=== PATIENT | male | born 1930 | race Caucasian/White ===

== ENCOUNTER 2016-05-01 11:54 | Inpatient (IN) | payer MEDICARE, BC ==
[2016-05-01] MEDS ORDERED: Morphine INJ* 10 MG/ML 1 ML CARPUJECT IV ONE ×2 (12:17→15:02)
--- NOTE | 2016-05-01 13:26 | RAD ---
Indication: Low back pain, neurostimulator placement. 3 views of lumbar spine demonstrates degenerative disc disease at L2-L3, L3-L4. Neural stimulator leads are in place. IMPRESSION: Degenerative disc disease at L2-L3 and L3-L4.
--- NOTE | 2016-05-01 13:26 | RAD ---
Indication: Right hip pain after fall. 2 views of the right hip including an AP view of the pelvis demonstrates no fracture. Arterial calcifications are noted. IMPRESSION: No fracture of the right hip is noted.
--- NOTE | 2016-05-01 13:27 | RAD ---
Indication: Right knee pain after injury. 2 views of the right knee demonstrates no definite fracture although joint space narrowing in the medial and lateral compartment as well as the patellofemoral joint is noted. No joint effusion is noted. IMPRESSION: Degenerative changes of the medial, lateral and patellofemoral compartments without evidence of fracture or effusion.
--- NOTE | 2016-05-01 13:28 | RAD ---
Indication: Right ankle pain after injury. 3 views of the right ankle demonstrates degenerative changes of the tibiotalar joint. No fracture is identified. IMPRESSION: Degenerative changes of the tibiotalar joint without definite fracture.
[2016-05-01 14:41] LABS: Hematocrit 29 % (42-52); Hemoglobin 9.7 g/dl (14.0-18.0); Mean Corpuscular HGB Conc 33 g/dl (31-36); Mean Corpuscular Hemoglobin 30 pg (27-31); Mean Corpuscular Volume 91 fL (80-94); Mean Platelet Volume 9 um3 (7.4-10.4); Red Blood Count 3.22 10^6/ul (4.0-5.4); Red Cell Distribution Width 13 % (10.5-15)
[2016-05-01 14:56] LABS: Albumin 2.6 g/dL (3.2-5.2); BUN/Creatinine Ratio 24.5 (8-20); Calcium 8.3 mg/dL (8.6-10.3); EGFR African American 34.3 (>60); EGFR Non-African American 26.7 (>60); Globulin 3.2 g/dL (2-4); Potassium 4.4 mmol/L (3.5-5.0); Total Bilirubin 0.5 mg/dL (0.2-1.0); Total Protein 5.8 g/dL (6.4-8.9)
--- NOTE | 2016-05-01 14:58 | RAD ---
Indication: Right leg pain. The T10 vertebra demonstrates areas of lysis and sclerosis. Compression fracture of T10 cannot be excluded as this is incompletely imaged. The remainder of the vertebral bodies appear normal in height. No compression fracture is noted. Schmorl's node is noted at the superior endplate of T11, T12 and inferior endplate of L1, L2 and superior endplate of L3. 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 There is laminectomy at L4 noted. Broad-based protrusion is noted at L3-L4. Moderate degree of spinal stenosis is noted. At L2-L3 broad-based protrusion is noted. Facet and ligamentous hypertrophy is noted. No central or foraminal stenosis is noted. At L1-L2 broad-based protrusion flattens the thecal sac. Moderate degree of facet arthropathy is noted. At T12-L1 and T11-T12 no focal protrusion is identified. IMPRESSION: THE T10 VERTEBRA IS INCOMPLETELY VISUALIZED WITH AREAS OF LYSIS. FURTHER EVALUATION WITH A CT OF THE THORACIC SPINE MAY BE HELPFUL. BILATERAL PLEURAL EFFUSION WITH BIBASILAR ATELECTASIS IS NOTED. LAMINECTOMY AT L4. DEGENERATIVE DISC DISEASE AT L3-L4 WITH BROAD-BASED PROTRUSION AND MODERATE DEGREE OF SPINAL STENOSIS IS NOTED. AT L2-L3 BROAD-BASED PROTRUSION AND FACET AND LIGAMENTOUS HYPERTROPHY IS NOTED.
[2016-05-01] MEDS ORDERED: Morphine INJ* 2 MG/ML 1 ML CARPUJECT IV PRN (16:10)
[2016-05-01 16:48] LABS: C Reactive Protein 217.37 mg/L (< 5.00)
[2016-05-01] MEDS ORDERED: oxyCODONE/Acetamin 5/325 MG* TAB PO PRN (16:50)
[2016-05-01] MEDS ORDERED: Lidocaine PATCH 5%* 1 PATCH TRANSDERM SCH (17:00)
[2016-05-01] MEDS ORDERED: Polyethylene Glycol 3350* 17 GM PACKET PO PRN (17:05)
--- NOTE | 2016-05-01 18:50 | HP ---
HISTORY AND PHYSICAL:* ADDENDUM: DATE OF ADMISSION: 05/01/16 Quintin Joy is an 85-year-old male with a history of chronic back pain for which dorsal column stimulator was implanted within the past several days. Postoperatively, the patient had an episode of fall and knee contusion. He had been complaining of increased generalized weakness. He presented to the ED for evaluation. So far, he appears to be slightly dehydrated according to his BUN and creatinine. Unfortunately, unless confirmed otherwise, after the dorsal column stimulator placement, the patient most likely will not be able to have an MRI of his back. PT and OT evaluation is going to be utilized during his hospital stay. It is possible that the patient will require rehab at discharge. For further details of the patient's presentation and plan, please see history and physical dictated by Laly Arana NP, on 05/01/16 with which I agree. [id number]/CPS #: [id number] MTDD
--- NOTE | 2016-05-01 19:21 | RAD ---
Indication: Back pain, T10 abnormality CT of the thoracic spine was obtained in the axial plane. Sagittal and coronal reconstructed images were obtained. The vertebral bodies appear normal in height. Neural stimulator leads are present at the level of T7 in the epidural space in the dorsal aspect of the spinal canal. There is mixed sclerotic and lytic lesion at the T10 vertebra. Otherwise the T10 vertebra is preserved in height with no evidence of compression fracture. This is of unclear etiology. No compression is noted. I cannot totally exclude metastatic disease although other etiologies are not totally excluded. The remainder of the vertebra appear normal in height and alignment. No focal protrusion is identified. The lung arroyo demonstrates bilateral pleural effusions. Bibasilar atelectasis is noted. IMPRESSION: Mixed sclerotic and lytic lesion at T10. No compression noted. No evidence of retropulsed fragment is noted. I cannot totally exclude metastatic disease at this level. Neurostimulator leads terminate at the T7 level in the epidural space. Bilateral pleural effusions are noted.
[2016-05-01] MEDS: Magnesium Hydroxide LIQ* 30 ML UDC PO PRN (19:58)
--- NOTE | 2016-05-01 20:03 | ED ---
Darshan Paniagua Billy, scribed for Guilherme Miramontes MD on 05/01/16 at 1333 . Lower Extremity - HPI Summary HPI Summary: Patient is an 85 year-old male coming to [facility] presenting with constant lumbar, right hip, and RLE pain. He states that his pain has been consistent since his spinal cord stimulator was implanted [address] Schwartz, to treat chronic lower back pain. He has "slid" out of his bed multiple times since then. He and family state that while he had been able to walk with a cane in the past, he has been unable to do so today. He is constipated but denies any urinary incontinence. Denies saddle numbness or tingling. Denies any fever, cough, congestion, or chills. Patient states that he took Percoset today at 1100 without any improvement. - History of Current Complaint Chief Complaint: EDHipPelvisInjury Stated Complaint: HIP PAIN Time Seen by Provider: 05/01/16 12:10 Hx Obtained From: Patient Onset of Pain: Days Severity Initially: Moderate Severity Currently: Moderate Timing: Constant Location: Is Discrete @ - Lumbar, right hip, RLE Associated Signs And Symptoms: Positive: Negative Aggravating Factor(s): Standing, Ambulation Alleviating Factor(s): Rest Able to Bear Weight: No - Allergies/Home Medications Allergies/Adverse Reactions: Allergies Allergy/AdvReac Type Severity Reaction Status Date / Time Sulfa Drugs Allergy Rash Verified 07/02/15 19:08 Home Medications: Home Medications Clonazepam [Clonazepam] 0.5 mg PO DAILY 05/01/16 [History Confirmed 05/01/16] Levothyroxine TAB* [Synthroid 100 MCG TAB*] 100 mcg PO DAILY 05/01/16 [History Confirmed 05/01/16] Pramipexole TAB* [Mirapex TAB*] 0.25 mg PO BEDTIME 05/01/16 [History Confirmed 05/01/16] Simvastatin [Simvastatin] 10 mg PO DAILY 05/01/16 [History Confirmed 05/01/16] oxyCODONE/Acetamin 5/325 MG* [Percocet 5/325 TAB*] 1 tab PO Q4H PRN 05/01/16 [ History Confirmed 05/01/16] PMH/Surg Hx/FS Hx/Imm Hx Endocrine/Hematology History: Reports: Hx Diabetes - DIET CONTROLLED Denies: Hx Anticoagulant Therapy, Hx Thyroid Disease Cardiovascular History: Reports: Hx Hypertension Respiratory History: Denies: Hx Asthma, Hx Chronic Obstructive Pulmonary Disease (COPD), Hx Lung Cancer GI History: Denies: Hx Gall Bladder Disease, Hx Gastrointestinal Bleed, Hx Ulcer, Hx Urosepsis History: Denies: Hx Kidney Stones, Hx Renal Disease - 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 LEFT NEPHRECTOMY 1951 Infectious Disease History: Reports: Hx Shingles - Got into eye Denies: Hx Clostridium Difficile, Hx Hepatitis, Hx Human Immunodeficiency Virus (HIV), Hx of Known/Suspected MRSA, History Other Infectious Disease, Traveled Outside the [place] in Last 30 Days - Family History Known Family History: Positive: Hypertension, Diabetes - Social History Alcohol Use: Daily Alcohol Amount: 2 BEERS/DAY Substance Use Type: Reports: None Smoking Status (MU): Former Smoker Review of Systems Negative: Fever, Chills Negative: Cough Positive: Other - lower back, right hip, RLE pain Negative: Paresthesia, Numbness All Other Systems Reviewed And Are Negative: Yes Physical Exam Triage Information Reviewed: Yes Vital Signs On Initial Exam: Initial Vitals Pulse Resp BP Pulse Ox 77 18 134/98 95 05/01/16 12:27 05/01/16 12:27 05/01/16 12:27 05/01/16 12:27 Vital Signs Reviewed: Yes Appearance: Positive: Well-Appearing, No Pain Distress - Comfortable, pleasant, and alert. Skin: Positive: Other - Lower back surgical dressing is still in place; there is no redness, no purulent drainage around the dressing, no induration, or streaking. Eyes: Positive: EOMI, MIGUEL ENT: Positive: Other - Moist mucousal membranes. Neck: Positive: Supple, Nontender, No Lymphadenopathy Respiratory/Lung Sounds: Positive: Clear to Auscultation, Breath Sounds Present. Negative: Rales, Wheezes Cardiovascular: Positive: RRR, Other - No gallops., S1, S2. Negative: Murmur, Rub Abdomen Description: Positive: Nontender, Soft. Negative: Distended Musculoskeletal: Positive: Other - Diffuse tenderness of right hip, right knee, no obvious effusion. Right knee is not red or hot. Diffuse tenderness of right ankle. Diffuse lower back tenderness. Calves are soft and nontender. Any type of movement of the right foot or ankle causes pain to the point where it is impossible to compare strength right vs. left. Neurological: Positive: Alert, Oriented to Person Place, Time, Other - Sensation to pinprick intact bilaterally. Psychiatric: Positive: Affect/Mood Appropriate - Logical and coherent. AVPU Assessment: Alert Diagnostics - Vital Signs Vital Signs Pulse Resp BP Pulse Ox 05/01/16 12:27 77 18 134/98 95 - Laboratory Lab Results: Lab Results 05/01/16 05/01/16 05/01/16 Range/Units 14:30 14:30 14:30 WBC 11.0 H (3.5-10.8) 10^3/ul RBC 3.22 L (4.0-5.4) 10^6/ul Hgb 9.7 L (14.0-18.0) g/dl Hct 29 L (42-52) % MCV 91 (80-94) fL MCH 30 (27-31) pg MCHC 33 (31-36) g/dl RDW 13 (10.5-15) % Plt Count 186 (150-450) 10^3/ul MPV 9 (7.4-10.4) um3 Neut % (Auto) 70.0 (38-83) % Lymph % (Auto) 17.4 L (25-47) % Sebastian % (Auto) 11.0 H (1-9) % Eos % (Auto) 1.2 (0-6) % Baso % (Auto) 0.4 (0-2) % Absolute Neuts (auto) 7.7 (1.5-7.7) 10^3/ul Absolute Lymphs (auto) 1.9 (1.0-4.8) 10^3/ul Absolute Monos (auto) 1.2 H (0-0.8) 10^3/ul Absolute Eos (auto) 0.1 (0-0.6) 10^3/ul Absolute Basos (auto) 0 (0-0.2) 10^3/ul Absolute Nucleated RBC 0 10^3/ul Nucleated RBC % 0 Sodium 136 (133-145) mmol/L Potassium 4.4 (3.5-5.0) mmol/L Chloride 108 (101-111) mmol/L Carbon Dioxide 16 L (22-32) mmol/L Anion Gap 12 H (2-11) mmol/L BUN 57 H (6-24) mg/dL Creatinine 2.33 H (0.67-1.17) mg/dL Est GFR ( Amer) 34.3 (>60) Est GFR (Non-Af Amer) 26.7 (>60) BUN/Creatinine Ratio 24.5 H (8-20) Glucose 88 (70-100) mg/dL Lactic Acid 0.8 (0.5-2.0) mmol/L Calcium 8.3 L (8.6-10.3) mg/dL Total Bilirubin 0.50 (0.2-1.0) mg/dL AST 17 (13-39) U/L ALT 8 (7-52) U/L Alkaline Phosphatase 140 H (34-104) U/L Total Creatine Kinase 87 (10-223) U/L C-Reactive Protein 217.37 H (< 5.00) mg/L Total Protein 5.8 L (6.4-8.9) g/dL Albumin 2.6 L (3.2-5.2) g/dL Globulin 3.2 (2-4) g/dL Albumin/Globulin Ratio 0.8 L (1-3) Result Diagrams: 05/01/16 14:30 05/01/16 14:30 Lab Statement: Any lab studies that have been ordered have been reviewed, and results considered in the medical decision making process. - Radiology Right Ankle Radiology Interpretation Completed By: Radiologist - Degenerative changes of the tibiotalar joint without definite fracture. Lumbar Spine Radiology Interpretation Completed By: Radiologist - Degenerative disc disease at L2-L3 and L3-L4. Right Knee Radiology Interpretation Completed By: Radiologist Right Hip Radiology Interpretation Completed By: Radiologist - No fracture of the right hip is noted. - CT lumbar CT Interpretation Completed By: Radiologist - THE T10 VERTEBRA IS INCOMPLETELY VISUALIZED WITH AREAS OF LYSIS. FURTHER EVALUATION WITH A CT OF THE THORACIC SPINE MAY BE HELPFUL. BILATERAL PLEURAL EFFUSION WITH BIBASILAR ATELECTASIS IS NOTED. LAMINECTOMY AT L4. DEGENERATIVE DISC DISEASE AT L3-L4 WITH BROAD-BASED PROTRUSION AND MODERATE DEGREE OF SPINAL STENOSIS IS NOTED. AT L2-L3 BROAD- BASED PROTRUSION AND FACET AND LIGAMENTOUS HYPERTROPHY IS NOTED. Re-Evaluation - Re-Evaluation First Eval Re-Evaluation Time: 13:44 Lower Extremity Course/Dx - Course Assessment/Plan: According to the patient, before the spinal stimulator, he was walking with a cane and now is having severe pain down the entire right side from the hip to the ankle. He has no symptoms concerning with cord compression and interestingly, he has got obvious right hip, knee, and ankle tenderness which is difficult to explain in relation to the spinal stimulator. No fractures were seen. We obtained bloodwork. MRI is not an option. CT scan, for now, to check as best we can for abscess, hematoma, stimulator malplacement. Dr. Schwartz states if we do conclude that the spinal stimulator is worsening his condition, he can remove it. - Diagnoses Differential Diagnosis/HQI/PQRI: Positive: Arthritis, Bursitis, Cellulitis, Contusion, Dislocation, DVT, Fracture (Closed), Infection, Osteomyelitis, Septic Arthritis, Sprain, Strain, Tendonitis, Tenosynovitis Provider Diagnoses: Leg pain, right, Back pain, Falls frequently, Weakened patient - Physician Notifications Discussed Care of Patient With: Dr. Richards (hospitalist) @ 2033: accepts admission. Dr. Schwartz @ 2816: he is not convinced that the surgery has necessarily played a role in his symptoms; he states that we cannot obtain an MRI at this point. We will order a CT of the lumbar spine and check for any obvious problems as best we can. Discharge - Discharge Plan Condition: Stable Disposition: ADMITTED TO [facility] documentation as recorded by the Darshan mccoy Billy accurately reflects the service I personally performed and the decisions made by me, Guilherme Miramontes MD.
[2016-05-01] MEDS ORDERED: Vancomycin(*) 1,250 MG in NS 0.9% 250 ML* 250 ML IVPB ONE (21:00)
[2016-05-01] MEDS ORDERED: Atorvastatin* 10 MG TAB PO SCH (21:00)
[2016-05-01] MEDS ORDERED: Pramipexole TAB* 0.125 MG PO SCH (21:00)
[2016-05-01] MEDS ORDERED: cefTRIAXone VIAL(*) 1,000 MG in NS 0.9% 50 ML* 50 ML IVPB SCH (21:30)
[2016-05-01] MEDS: Morphine INJ* 2 MG/ML 1 ML CARPUJECT IV PRN (21:32)
[2016-05-01] MEDS: Docusate CAP* 100 MG PO SCH (21:53)
[2016-05-01] MEDS: Heparin VIAL(*) 5000 UNITS/ML VIAL (FIVE THOUSAND) SUBCUT SCH (21:54)
[2016-05-01 22:28] LABS: Urine Bacteria Absent (Absent); Urine Bilirubin Negative (Negative); Urine Glucose 1+(50 mg/dL) (Negative); Urine Nitrite Negative (Negative)
[2016-05-01] MEDS ORDERED: Vancomycin per Pharmacy* NOTE FOLLOW UP PRN (22:38)
[2016-05-01] MEDS: oxyCODONE/Acetamin 5/325 MG* TAB PO PRN (22:55)
--- NOTE | 2016-05-01 23:32 | HP ---
ATTENDING ADDENDUM NOW INCLUDED ON THIS REPORT HISTORY AND PHYSICAL: DATE OF ADMISSION: 05/01/16 PRIMARY CARE PROVIDER: Jaquan Dallas MD ATTENDING PHYSICIAN: Nereida Jackson MD *(report dictated by Belkys Hollingsworth NP) CHIEF COMPLAINT: Right hip, knee, and ankle pain after falling and inability to ambulate. HISTORY OF PRESENT ILLNESS: Mr. Joy is an 85-year-old male with past medical history significant for hypertension, arthritis, and postlaminectomy syndrome who presents to the emergency room with complaints of frequent falling and inability to ambulate after having a dorsal column stimulator implanted on 04/26/16. According to the patient's daughter, he had his procedure done on Tuesday and was able to ambulate and walk into the house and then starting on Tuesday, he had a fall and he again had a fall on . The patient continued, began complaining of right hip, knee, and ankle pain. According to the patient at baseline, he has arthritis in his right knee and often had pain down his right leg due to his chronic back problem. The patient denies any fever, chills, chest pain, shortness of breath, nausea, or vomiting. The patient denies any urinary symptoms. The patient does report constipation and took a dose of milk of magnesia last evening. The patient initially was taking Keno for his pain and that was not helping, his primary care prescribed him Percocet. The patient's daughter reports that she turned off the dorsal column stimulator earlier today prior to the arrival to the emergency room. Based off of concern for the patient's frequent falls and inability to ambulate after his surgery, he presented to the emergency room for further evaluation of his symptoms. While in the emergency room, the patient received morphine for his pain and also underwent multiple images including hip and pelvis x-ray showing no fractures. Right knee x-ray showing degenerative changes in the mediolateral and patellofemoral components without evidence of fracture or effusion. He also had a lumbar spine x-ray showing degenerative disk disease at L2-L3 and L3- L4. The patient had right ankle x-ray showing degenerative changes of the tibiotalar joint without definitive fracture. The patient also underwent a lumbar spine CT scan showing the T10 vertebra was incompletely visualized with areas of lysis. Further evaluation was recommended of the CT of the thoracic spine. The patient was also noted to have bilateral pleural effusions with bibasilar atelectasis. The patient noted to have laminectomy at L4 with degenerative disk disease at L3-L4 with broad- based protrusion and moderate degree of spinal stenosis noted. At L2-3, broad- based protrusion and facet and ligamentous hypertrophy is noted. The patient's inability to ambulate in pain, hospitalist medicine was asked to evaluate the patient for admission. PAST MEDICAL HISTORY: 1. Hypertension. 2. Arthritis. 3. Postlaminectomy syndrome. PAST SURGICAL HISTORY: 1. Status post left nephrectomy. 2. Status post laminectomy. 3. Status post appendectomy. HOME MEDICATIONS: Include: 1. Lisinopril 40 mg oral daily. 2. Nifedipine XL 30 mg oral daily. 3. Percocet 5/325 mg 1 tablet oral every 4 hours as needed for pain. 4. Levothyroxine 100 mcg oral daily. 5. Clonazepam 0.5 mg oral daily. 6. Simvastatin 10 mg oral daily. 7. Mirapex 0.25 mg oral daily at bedtime. ALLERGIES: SULFA. FAMILY HISTORY: The patient's mother passed at age 85 from myocardial infarction. The patient has an uncle with diabetes mellitus. The patient's father passed of an unknown cancer. SOCIAL HISTORY: The patient is a former smoker. He quit smoking approximately 7 years ago. The patient has approximately 70-year smoking history. The patient occasionally drinks alcoholic beverages. He denies recreational drug use. 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 The patient's daughter, Briseida Butler, will be his surrogate decision maker in the event he is unable to make decisions for himself. REVIEW OF SYSTEMS: I performed a 14-point review of systems. All the pertinent positives and negatives are mentioned in the history of present illness. The remaining review of systems are negative. PHYSICAL EXAMINATION GENERAL APPEARANCE: The patient is alert, pleasant, appears to be uncomfortable. VITAL SIGNS: Temperature 98.2, heart rate 80, respiratory rate 18, O2 sat 100% on room air, and blood pressure 143/59. HEENT: Normocephalic, atraumatic. Pupils are equal and reactive to light. Extraocular movements are intact. NECK: Supple. There is no lymphadenopathy noted. RESPIRATORY: There is no accessory muscle use and the lungs are clear to auscultation bilateral. CARDIOVASCULAR: Regular rate and rhythm. S1 and S2 present. There is a grade 2/6 systolic murmur heard best at the upper right sternal border. There are no rubs, or gallops heard. ABDOMEN: Soft, nontender, and nondistended. There are hypoactive bowel sounds present x4. EXTREMITIES: The right knee is slightly swollen with tenderness to palpation on both the medial and lateral aspects. There is no erythema or warmth noted. There is no lower extremity edema. DP and PT pulses are 2+ and symmetric. MUSCULOSKELETAL: There is no clubbing or cyanosis noted. The patient is able to move bilateral lower extremities with a lot of coaxing, but does have some difficulty. He is able to dorsiflex and is able to slightly plantar flex bilateral. The patient has good strength in his upper extremities. NEUROLOGICAL: The patient is alert and oriented x4. Cranial nerves II through XII are grossly intact. PSYCHOLOGICAL: The patient is calm and cooperative. SKIN: The patient has a midline back incision and an incision to his lower back on the right side with dressings that are clean, dry, and intact. There is no sign of erythema around his dressing sites from his incisions from his dorsal column stimulator placement. DIAGNOSTIC STUDIES/LABORATORY DATA: Sodium 136, potassium 4.4, chloride 108, CO2 of 16, BUN 57, creatinine 2.33, and glucose 88. White blood cell count 11.0 , hemoglobin 9.7, hematocrit 29, and platelet count 186. Right hip and pelvis x-ray from today. Radiologist's Impression: No fracture of the right hip is noted. Right knee x-ray from today. Radiologist's Impression: Degenerative changes of the medial, lateral, and patellofemoral components, without evidence of fracture or effusion. Lumbar spine x-ray from today. Radiologist's Impression: Degenerative disk disease at L2-3 and L3-4. Right ankle x-ray from today. Radiologist's Impression: Degenerative changes of the tibiotalar joint without definite fracture. Lumbar spine CT from today. Radiologist's Impression: The T10 vertebra is incompletely visualized with areas of lysis. Further evaluation with the CT of the thoracic spine maybe helpful. Bilateral pleural effusions with bibasilar atelectasis is noted. Laminectomy at L4. Degenerative disk disease at L3-4 with broad-based protrusion and moderate degree of spinal stenosis is noted. At L2-3, broad-based protrusion and facets and ligamentous hypertrophy is noted. IMPRESSION: Mr. Joy is an 85-year-old male with past medical history significant for hypertension, arthritis, and postlaminectomy syndrome who presents to the emergency room with right lower extremity pain, low back pain, and inability to ambulate after having a dorsal column stimulator inserted. He will be admitted as an inpatient for intractable pain and frequent falls. ASSESSMENT: 1. Right lower extremity pain and frequent falls: The patient is status post dorsal column stimulator implantation on 04/26/16. I did touch base with Dr. Connor Schwartz, who performed his procedure. He states that the patient's spinal stimulator is not MRI compatible. As far as his back, if the patient needed extremities or a brain MRI that would be possible. Dr. Schwartz feels that the patient's spinal stimulator was placed at L6 and this should not be affecting his lower extremities. The patient will be seen in consultation by physical therapy and occupational therapy. We will add on C-reactive protein and urine. We will also order lidocaine patches for the patient's knee. He will be given pain medication. He has been encouraged to use heat or ice either help with his knee pain. We will check urinalysis and blood cultures. The patient may need short- term subacute rehab if he is slow to progress with his ability to be able to ambulate and care for himself. 2. Chronic kidney disease: The patient's creatinine appears to be slightly above his baseline. He looks to be slightly on the dehydrated side. We will give him some gentle IV hydration overnight and recheck his labs in the morning. 3. Hypertension: The patient will be continued on his home lisinopril and nifedipine. 4. Hypothyroidism. The patient had a TSH on April 05.99. He will be continued on his home levothyroxine dose. 5. Constipation: The patient will be started on a bowel regime. 6. Fluids, electrolytes, and nutrition: The patient will be on a regular diet. 7. Code status: Full code. 8. DVT prophylaxis: The patient is at high risk and will have subcu heparin. 9. Disposition: Inpatient. TIME SPENT: Time for this admission was 60 minutes and 35 minutes was spent face- to-face with the patient and daughter, discussing medications, past medical history, and the events leading up to his arrival today and performing a physical examination. The case has been reviewed with the attending, Dr. Jackson, who agrees with the plan of care. Reviewed by BELKYS OHLLINGSWORTH, PROGRAMMING EQUIPMENT OPERATOR-Fede 05/05/16 1503 ADDENDUM: DATE OF ADMISSION: 05/01/16 Quintin Joy is an 85-year-old male with a history of chronic back pain for which dorsal column stimulator was implanted within the past several days. Postoperatively, the patient had an episode of fall and knee contusion. He had been complaining of increased generalized weakness. He presented to the ED for evaluation. So far, he appears to be slightly dehydrated according to his BUN and creatinine. Unfortunately, unless confirmed otherwise, after the dorsal column stimulator placement, the patient most likely will not be able to have an MRI of his back. PT and OT evaluation is going to be utilized during his hospital stay. It is possible that the patient will require rehab at discharge. For further details of the patient's presentation and plan, please see history and physical dictated by Belkys Arana NP, on 05/01/16 with which I agree. NEREIDA JACKSON MD CC: Dr. Dallas* [id number]/CPS #: [id number]/CPS #: [id number] MTDAdry
[2016-05-02] MEDS: Morphine INJ* 2 MG/ML 1 ML CARPUJECT IV PRN ×4 (00:29→12:00)
[2016-05-02] MEDS ORDERED: Lidocaine Patch REMOVE* 1 NOTE MISC PATCH OFF SCH (05:00)
[2016-05-02] MEDS: Heparin VIAL(*) 5000 UNITS/ML VIAL (FIVE THOUSAND) SUBCUT SCH (05:09)
[2016-05-02] MEDS ORDERED: Levothyroxine TAB* 100 MCG TAB PO SCH (06:00)
[2016-05-02 06:31] LABS: Hematocrit 28 % (42-52); Hemoglobin 9.1 g/dl (14.0-18.0); Mean Corpuscular HGB Conc 33 g/dl (31-36); Mean Corpuscular Hemoglobin 30 pg (27-31); Mean Corpuscular Volume 91 fL (80-94); Mean Platelet Volume 9 um3 (7.4-10.4); Red Blood Count 3.05 10^6/ul (4.0-5.4); Red Cell Distribution Width 13 % (10.5-15); White Blood Count 12.2 10^3/ul (3.5-10.8)
[2016-05-02 06:51] LABS: BUN/Creatinine Ratio 23.9 (8-20); Calcium 8.2 mg/dL (8.6-10.3); EGFR African American 33.5 (>60); Potassium 4.4 mmol/L (3.5-5.0)
--- NOTE | 2016-05-02 08:23 | PN ---
Subjective Date of Service: 05/02/16 Objective Active Medications: Atorvastatin Calcium (Lipitor*) 5 mg PO BEDTIME [facility] Last Admin: 05/01/16 21:54 Dose: 5 mg Clonazepam (Klonopin Tab(*)) 0.5 mg PO DAILY [facility] Docusate Sodium (Colace Cap*) 100 mg PO BID [facility] Last Admin: 05/01/16 21:53 Dose: 100 mg Heparin Sodium (Porcine) (Heparin Vial(*)) 5,000 units SUBCUT Q8HR [facility] Last Admin: 05/02/16 05:09 Dose: 5,000 units Lactated Ringer's (Lactated Ringers 1000 Ml Bag*) 1,000 mls @ 75 mls/hr IV PER RATE [facility] Last Admin: 05/01/16 17:01 Dose: 75 mls/hr Ceftriaxone Sodium 1,000 mg/ (Sodium Chloride) 50 mls @ 200 mls/hr IVPB 0000 [facility] Vancomycin HCl 500 mg/ Sodium (Chloride) 250 mls @ 166.667 mls/hr IVPB Q12H [facility] Levothyroxine Sodium (Synthroid Tab*) 100 mcg PO 0600 [facility] Last Admin: 05/02/16 05:09 Dose: 100 mcg Lidocaine (Lidoderm 5% Patch*) 1 patch TRANSDERM DAILY@1700 [facility] Last Admin: 05/01/16 17:00 Dose: 1 patch Lisinopril (Prinivil Tab*) 40 mg PO DAILY [facility] Magnesium Hydroxide (Milk Of Magnesia Liq*) 30 ml PO Q6H PRN PRN Reason: CONSTIPATION Last Admin: 05/01/16 19:58 Dose: 30 ml Morphine Sulfate (Morphine Inj (Syringe)*) 2 mg IV Q2H PRN PRN Reason: PAIN - SEVERE Last Admin: 05/02/16 07:30 Dose: 2 mg Nifedipine (Procardia Xl Tab*) 30 mg PO DAILY [facility] Oxycodone/Acetaminophen (Percocet 5/325 Tab*) 1 tab PO Q4H PRN PRN Reason: PAIN Last Admin: 05/01/16 19:35 Dose: 1 tab Oxycodone/Acetaminophen (Percocet 5/325 Tab*) 2 tab PO Q4H PRN PRN Reason: PAIN - MILD TO MODERATE Last Admin: 05/01/16 22:55 Dose: 2 tab Pharmacy Consult (Vancomycin Per Pharmacy*) 1 note FOLLOW UP . PRN PRN Reason: PER PROTOCOL Pharmacy Profile Note (Lidocaine Patch Remove*) 1 note PATCH OFF 0500 [facility] Last Admin: 05/02/16 05:20 Dose: 1 note Pharmacy Profile Note (Vancomycin Trough Check) 1 note FOLLOW UP 1000 ONE Stop: 05/03/16 10:01 Polyethylene Glycol/Electrolytes (Miralax*) 17 gm PO DAILY PRN PRN Reason: CONSTIPATION Pramipexole Dihydrochloride (Mirapex Tab*) 0.25 mg PO BEDTIME [facility] Last Admin: 05/01/16 21:55 Dose: 0.25 mg Vital Signs 05/01/16 05/01/16 05/01/16 15:45 16:54 19:05 Temperature 98.2 F 98.6 F Pulse Rate 80 80 Respiratory 18 18 16 Rate Blood Pressure 143/59 134/50 (mmHg) O2 Sat by Pulse 100 93 Oximetry 05/01/16 05/01/16 05/01/16 19:35 20:00 21:32 Temperature Pulse Rate Respiratory 18 18 18 Rate Blood Pressure (mmHg) O2 Sat by Pulse Oximetry 05/01/16 05/01/16 05/01/16 21:35 22:32 22:55 Temperature Pulse Rate Respiratory 20 18 20 Rate Blood Pressure (mmHg) O2 Sat by Pulse Oximetry 05/01/16 05/02/16 05/02/16 23:17 00:29 00:55 Temperature 98.9 F Pulse Rate 81 Respiratory 16 20 18 Rate Blood Pressure 148/60 (mmHg) O2 Sat by Pulse 96 Oximetry 05/02/16 05/02/16 05/02/16 01:29 03:56 04:04 Temperature 99.5 F Pulse Rate 91 Respiratory 16 20 18 Rate Blood Pressure 150/68 (mmHg) O2 Sat by Pulse 92 Oximetry 05/02/16 07:30 Temperature Pulse Rate Respiratory 24 Rate Blood Pressure (mmHg) O2 Sat by Pulse Oximetry Result Diagrams: 05/02/16 05:55 05/02/16 05:55 Additional Lab and Data: Lab Results 05/01/16 05/01/16 05/01/16 Range/Units 14:30 14:30 14:30 WBC 11.0 H (3.5-10.8) 10^3/ul RBC 3.22 L (4.0-5.4) 10^6/ul Hgb 9.7 L (14.0-18.0) g/dl Hct 29 L (42-52) % MCV 91 (80-94) fL MCH 30 (27-31) pg MCHC 33 (31-36) g/dl RDW 13 (10.5-15) % Plt Count 186 (150-450) 10^3/ul MPV 9 (7.4-10.4) um3 Neut % (Auto) 70.0 (38-83) % Lymph % (Auto) 17.4 L (25-47) % [place] % (Auto) 11.0 H (1-9) % Eos % (Auto) 1.2 (0-6) % Baso % (Auto) 0.4 (0-2) % Absolute Neuts (auto) 7.7 (1.5-7.7) 10^3/ul Absolute Lymphs (auto) 1.9 (1.0-4.8) 10^3/ul Absolute Monos (auto) 1.2 H (0-0.8) 10^3/ul Absolute Eos (auto) 0.1 (0-0.6) 10^3/ul Absolute Basos (auto) 0 (0-0.2) 10^3/ul Absolute Nucleated RBC 0 10^3/ul Nucleated RBC % 0 Sodium 136 (133-145) mmol/L Potassium 4.4 (3.5-5.0) mmol/L Chloride 108 (101-111) mmol/L Carbon Dioxide 16 L (22-32) mmol/L Anion Gap 12 H (2-11) mmol/L BUN 57 H (6-24) mg/dL Creatinine 2.33 H (0.67-1.17) mg/dL Est GFR ( Amer) 34.3 (>60) Est GFR (Non-Af Amer) 26.7 (>60) BUN/Creatinine Ratio 24.5 H (8-20) Glucose 88 (70-100) mg/dL Lactic Acid 0.8 (0.5-2.0) mmol/L Calcium 8.3 L (8.6-10.3) mg/dL Total Bilirubin 0.50 (0.2-1.0) mg/dL AST 17 (13-39) U/L ALT 8 (7-52) U/L Alkaline Phosphatase 140 H (34-104) U/L Total Creatine Kinase 87 (10-223) U/L C-Reactive Protein 217.37 H (< 5.00) mg/L Total Protein 5.8 L (6.4-8.9) g/dL Albumin 2.6 L (3.2-5.2) g/dL Globulin 3.2 (2-4) g/dL Albumin/Globulin Ratio 0.8 L (1-3) Assess/Plan/Problems-Billing Assessment: Mr. Joy is a 85 yo
[2016-05-02 08:27] VITALS: BP 132/52
[2016-05-02] MEDS: Docusate CAP* 100 MG PO SCH (08:27)
[2016-05-02] MEDS: oxyCODONE/Acetamin 5/325 MG* TAB PO PRN (08:28)
[2016-05-02] MEDS ORDERED: Lisinopril TAB* 10 MG PO SCH (09:00)
[2016-05-02] MEDS ORDERED: clonazePAM TAB(*) 0.5 MG PO SCH (09:00)
[2016-05-02] MEDS ORDERED: NIFEdipine ER TAB* 30 MG PO SCH (09:00)
[2016-05-02] MEDS ORDERED: Vancomycin(*) 500 MG in NS 0.9% 250 ML* 250 ML IVPB SCH (10:00)
[2016-05-02] MEDS: Magnesium Hydroxide LIQ* 30 ML UDC PO PRN (10:46)
--- NOTE | 2016-05-02 11:11 | PN ---
Subjective Date of Service: 05/02/16 Interval History: Patient seen and examined at bedside. Pt states that his right LE pain is improving but he continues to have a difficult time moving his legs d/t pain. Denies fever, chills, chest discomfort, shortness of breath, N/V/D. Pt with urinary retention last evening and a kate was placed, Pt is also constipated. Family History: Unchanged from Admission Social History: Unchanged from Admission Past Medical History: Unchanged from Admission Objective Active Medications: Atorvastatin Calcium (Lipitor*) 5 mg PO BEDTIME [facility] Clonazepam (Klonopin Tab(*)) 0.5 mg PO DAILY [facility] Docusate Sodium (Colace Cap*) 100 mg PO BID [facility] Heparin Sodium (Porcine) (Heparin Vial(*)) 5,000 units SUBCUT Q8HR [facility] Lactated Ringer's (Lactated Ringers 1000 Ml Bag*) 1,000 mls @ 75 mls/hr IV PER RATE [facility] Ceftriaxone Sodium 1,000 mg/ (Sodium Chloride) 50 mls @ 200 mls/hr IVPB 0000 [facility] Vancomycin HCl 500 mg/ Sodium (Chloride) 250 mls @ 166.667 mls/hr IVPB Q12H [facility] Levothyroxine Sodium (Synthroid Tab*) 100 mcg PO 0600 [facility] Lidocaine (Lidoderm 5% Patch*) 1 patch TRANSDERM DAILY@1700 [facility] Lisinopril (Prinivil Tab*) 40 mg PO DAILY [facility] Magnesium Hydroxide (Milk Of Magnesia Liq*) 30 ml PO Q6H PRN Reason: CONSTIPATION Morphine Sulfate (Morphine Inj (Syringe)*) 2 mg IV Q2H PRN Reason: PAIN - SEVERE Nifedipine (Procardia Xl Tab*) 30 mg PO DAILY [facility] Oxycodone/Acetaminophen (Percocet 5/325 Tab*) 1 tab PO Q4H PRN Reason: PAIN Oxycodone/Acetaminophen (Percocet 5/325 Tab*) 2 tab PO Q4H PRN Reason: PAIN - MILD TO MODERATE Pharmacy Consult (Vancomycin Per Pharmacy*) 1 note FOLLOW UP . PRN Pharmacy Profile Note (Lidocaine Patch Remove*) 1 note PATCH OFF 0500 [facility] Pharmacy Profile Note (Vancomycin Trough Check) 1 note FOLLOW UP 1000 ONE Polyethylene Glycol/Electrolytes (Miralax*) 17 gm PO DAILY PRN Reason: CONSTIPATION Pramipexole Dihydrochloride (Mirapex Tab*) 0.25 mg PO BEDTIME [facility] Vital Signs 05/01/16 05/01/16 05/01/16 15:45 16:54 19:05 Temperature 98.2 F 98.6 F Pulse Rate 80 80 Respiratory 18 18 16 Rate Blood Pressure 143/59 134/50 (mmHg) O2 Sat by Pulse 100 93 Oximetry 05/01/16 05/02/16 05/02/16 23:17 00:29 00:55 Temperature 98.9 F Pulse Rate 81 Respiratory 16 20 18 Rate Blood Pressure 148/60 (mmHg) O2 Sat by Pulse 96 Oximetry 05/02/16 05/02/16 05/02/16 01:29 03:56 04:04 Temperature 99.5 F Pulse Rate 91 Respiratory 16 20 18 Rate Blood Pressure 150/68 (mmHg) O2 Sat by Pulse 92 Oximetry 05/02/16 05/02/16 05/02/16 04:56 05:20 07:30 Temperature 99.0 F Pulse Rate Respiratory 19 24 Rate Blood Pressure (mmHg) O2 Sat by Pulse Oximetry 05/02/16 05/02/16 05/02/16 07:36 08:00 08:28 Temperature 97.8 F Pulse Rate 95 Respiratory 16 18 19 Rate Blood Pressure 132/52 (mmHg) O2 Sat by Pulse 91 Oximetry Oxygen Devices in Use Now: None Appearance: NAD, laying in bed Eyes: No Scleral Icterus, PERRLA Ears/Nose/Mouth/Throat: NL Teeth, Lips, Gums, Mucous Membranes Moist Neck: NL Appearance and Movements; NL JVP, Trachea Midline Respiratory: Symmetrical Chest Expansion and Respiratory Effort, Clear to Auscultation Cardiovascular: RRR, - - 2/6 systolic murmur heard best at the right upper sternal border. Abdominal: - - Bowel sounds present, abdomen soft, distended, non tender. Extremities: - - Swelling to right knee, and left fingers Neurological: Alert and Oriented x 3, - - Unable to raise legs, but resists bending of right knee and movement of left leg. Lines/Tubes/Other Access: Clean, Dry and Intact Peripheral IV - site benign Nutrition: Taking PO's Result Diagrams: 05/02/16 05:55 05/02/16 05:55 Assess/Plan/Problems-Billing Assessment: Mr. Joy is a 85 yo male with PMH significant for HTN, HLD, arthritis and postlaminectomy syndrome who presented to the emergency room with complaints of right LE pain, low back pain and inability to ambulate after having a dorsal column stimulator placed on 04/26/16. - Patient Problems (1) Intractable pain Code(s): R52 - PAIN, UNSPECIFIED SNOMED Code(s): 36582426 Comment: - Pt states that his pain is improving, but continues to be unable to move legs d/t pain - Elevated CRP, leukocytosis - CT shows mixed sclerotic and lytic lesion T10 - Pt may have an infection at his stimulator insertion site - Continue Vanco and ceftriaxone - Will plan to transfer to [facility] today (2) CKD (chronic kidney disease) Code(s): N18.9 - CHRONIC KIDNEY DISEASE, UNSPECIFIED SNOMED Code(s): 691364448 Comment: - Acute on chronic kidney injury - Creatinine slightly above baseline - Suspect Pt is dehydrated, urinary retention may also be causing increase in creatinine - Urinary catheter placed - Continue IVF (3) HTN (hypertension) Code(s): I10 - ESSENTIAL (PRIMARY) HYPERTENSION SNOMED Code(s): 42350960 Comment: - SBP 130-150's - Continue lispinopril and nifedipine (4) Hypothyroidism Code(s): E03.9 - HYPOTHYROIDISM, UNSPECIFIED SNOMED Code(s): 54122616 Comment: - TSH 71.99 on 04/05 - Continue Levothyroxine (5) Constipation Code(s): K59.00 - CONSTIPATION, UNSPECIFIED SNOMED Code(s): 66609584 Comment: - Continue bowel regime (6) Urinary retention Code(s): R33.9 - RETENTION OF URINE, UNSPECIFIED SNOMED Code(s): 608820678 Comment: - Pt unable to urinate last evening - Urinary catheter placed - ? if this is related to constipation (7) DVT prophylaxis Code(s): QLO6470 - SNOMED Code(s): 974364763 Comment: Continue SQ heparin (8) Full code status Code(s): Z78.9 - OTHER SPECIFIED HEALTH STATUS SNOMED Code(s): 494336882 Status and Disposition: Inpatient. Plan for transfer to [facility] today.
--- NOTE | 2016-05-02 13:30 | TRS ---
ADDENDUM NOW INCLUDED ON THIS REPORT TRANSFER SUMMARY DATE OF ADMISSION: To [facility] 05/01/2016 ANTICIPATED DATE OF TRANSFER: To [facility] 05/02/2016 PRIMARY CARD PHYSICIAN: Dr. Jaquan Dallas REASON FOR TRANSFER: 1. Possibility of infection of spinal cord stimulator. 2. T10 vertebral body lytic lesion. SECONDARY DIAGNOSES: 1. Hypertension. 2. Arthritis. 3. Post laminectomy syndrome. History of lumbar spine laminectomy in remote past. 4. Status post spinal cord stimulator implant, implanted at [place], [place] on 04/26/2016. 5. Hypothyroidism. 6. Dyslipidemia. 7. Restless leg syndrome. 8. Chronic kidney disease stage 3. HOME MEDICATIONS: Include: 1. Lisinopril 40 mg daily. 2. Nifedipine XL 30 mg daily. 3. Percocet 5/325 one tablet every 4 hours as needed. 4. Levothyroxine 100 micrograms daily. 5. Clonazepam 0.5 mg daily. 6. Simvastatin 10 mg daily. 7. Mirapex 0.25 mg daily at bedtime. ALLERGIES: SULFA. CURRENT MEDICATIONS: Received during the hospital stay included: 1. Lipitor 5 mg daily. 2. Colace 100 mg b.i.d. 3. Heparin subcutaneously 5000 units every 8 hours. 4. Lactated Ringer 75 mL. 5. Levothyroxine 100 micrograms daily. 6. Lidoderm patch 5% apply on a daily basis to lower back. 7. Lisinopril 40 mg daily. 8. Morphine 2 mg every 2 hours p.r.n. 9. Nifedipine ER 30 mg daily. 10. Polyethylene glycol on a p.r.n. basis. 11. Mirapex 0.25 mg at bedtime. 12. Vancomycin 1200 mg IV every 12 hours as per pharmacy protocol. 13. Ceftriaxone 1 gram IV every 24 hours. 14. Oxycodone with acetaminophen 1 tablet every 4 hours p.r.n. LABORATORY DATA: 1. Performed on 05/02/16 showed sodium 135, potassium 4.4, chloride 109, carbon dioxide 19, BUN 57, creatinine 2.38. CBC white blood count 12.2, hemoglobin 9.1 , hematocrit 28 and platelets of 185. 2. Patient's C-reactive protein was 217. 3. Urinalysis showed +3 protein, +1 blood, +1 red blood cells, hyaline casts and trace glucose. RADIOLOGY REPORTS: During the hospital stay included: 1. Thoracic spine CT obtained on 05/01/16. Impression: "Mixed sclerotic or lytic lesion at T10. No compression noted. No evidence of retropulsed fragment is noted. I cannot totally exclude metastatic disease at this level. Lumbar stimulator leads terminate at T7 level in the epidural space. Bilateral pleural effusions are noted." 2. Lumbar spine CT obtained on 05/01/16. Impression: "the T10 vertebra is incompletely visualized with areas of lysis. Further evaluation with the CT of the thoracic spine maybe helpful. Bilateral pleural effusions with bibasilar atelectasis is noted. Laminectomy at L4. Degenerative disk disease at L3-4 with broad-based protrusion and moderate degree of spinal stenosis is noted. At L2-3 , broad-based protrusion and facet and ligamentous hypertrophy is noted." 3. Right knee x-ray obtained on 05/01/16. Impression: "Degenerative changes of the medial, lateral, and patellofemoral components, without evidence of fracture or effusion." CONSULTATIONS DURING THE HOSPITAL STAY: Included verbal communication on the phone with Dr. Sanchez from Neurosurgery. HOSPITALIZATION COURSE: Quintin Joy is an 85-year-old male who on 04/26/16 had spinal cord stimulator placed at [place], [place] for his chronic pain. Patient has history of lumber laminectomy in the past. Apparently as baseline he has chronic osteoarthritic problem with the right knee and he walks with a rolling walker. After Tuesday, when he actually walked with a walker to his home , it was apparently the last time when he was able to walk at his baseline as per family. Ever since then he has been stumbling around and falling. His last fall was on when he literally fell from sitting on the side of the bed , and that was witnessed by his daughter. He suffered from right knee contusion. He has had problems with the right knee for the past couple of years as he reports. He also reported that he has not had a bowel movement for 4 to 5 days. Patient came in to the hospital for evaluation of generalized weakness, worsening lower back pain and falls. His CRP noted to be markedly elevated and there was questionable lesion in thoracic spine. Performed further evaluations with CT of the thoracic spine were implemented and patient was noted to have mixed sclerotic and lytic lesion of the T10 vertebral body. In the face of his CRP being elevated at over 200 and mild leukocytosis patient was placed on empiric antibiotics. The wound was visualized, although the Steri-Strips were not off. There may be a small dehiscence in the lower incision, but overall the stimulator was palpated, there was no other loculated infections noted and there was no obvious skin cellulitis noted either. The area was also not really tender to palpation. We discussed the case with neurosurgeon chemical detection expert, Dr. Sanchez, at our facility. We discussed that most likely patient's stimulator has to be removed in order to get an MRI of his back. Since after the discussion with Dr. Schwartz, the anesthesiologist who originally put the stimulator in, patient should not have an MRI of his spine with the stimulator in, although apparently it is an MRI compatible device. Patient also developed urinary retention that may have been related to constipation. Nevertheless a Ortiz had to be inserted and a liter of urine was obtained as post void residual. Patient's neuro exam is very difficult as patient has osteoarthritic changes and knee contusion on the right and refuses to extend it. Having said that, he appears to have pretty good strength in bilateral lower extremities, but he resists the movement due to pain elicited. The case was discussed with the hospitalist chemical detection expert at [facility], Dr. Rothman, who graciously accepted this patient to his service. The case was also discussed with anesthesiologist chemical detection expert currently at [facility] as well, Dr. Schwartz, who agreed to the transfer. Patient is going to be transferred to [facility] for further treatment of possibility of infected spinal stimulator and T10 lytic sclerotic lesion. PHYSICAL EXAM: At the time of transfer; blood pressure of 132/52, heart rate of 95 and regular, respiratory rate 16, oxygen saturation 91% on room air, and temperature 97.8. General Appearance: This is very pleasant 85-year-old male who is in no acute distress, awake, alert, and oriented x3. He is hard of hearing. HEENT: Head is atraumatic and normocephalic. Eyes; pupils equal, round , reactive to light and accommodation. Oropharynx clear. Mucosa moist. Neck: Supple. No JVD, no bruits bilaterally. Cardiovascular: Regular rate and rhythm with 2/6 ejection murmur on auscultation of right upper sternal border. Respiratory: Fine crackles at bilateral bases, otherwise clear. Abdomen: Slightly protuberant, soft and nontender. Bowel sounds present in all 4 quadrants. Tympanic to percussion. Extremities: There is right knee edema and some very superficial abrasion. Patient refuses to extend his right knee and apparently that has been an issue for the last couple of years as per patient. Patient also resists straight leg raise in bilateral lower extremities, and he does it with strength that appears to be 5/5 bilaterally. His Babinski are negative bilaterally. There is good muscle tone. In bilateral upper extremities strength is 5/5. Neuro: Cranial nerves grossly intact. Motor strength in bilateral upper extremities as above is within normal limits. Sensation is grossly intact throughout. Speech is clear. Skin: On evaluation of the skin on the back in the upper lumbar and lower thoracic region on the right side, the spinal stimulator is palpable. There is no marked tenderness on palpation. There are 2 incisions noted; one along the thoracic spine approximately 10 cm in length and another one horizontally to the right. The incision to the right is approximately 10 cm in length also. He has a small area of dehiscence of approximately 0.5 cm. It is not draining. The skin is Steri-Stripped, but from just what I can visualize there is no area of cellulitis and no drainage present. The area is mildly tender to palpation. There are no loculated collections palpated. Patient is being transferred to [facility] for further treatment and evaluation by Neurosurgery and Anesthesiology. Most likely he will require to have the spinal cord stimulator to be retrieved and an MRI of the lumbar and thoracic spine to be performed. Please note this is a short summary of the patient's hospital stay. Please refer to further medical records for details. TIME SPENT: Approximately 55 minutes was spent at this patient's discharge. ADDENDUM: Please note that I spoke again with the anesthesiologist who implanted the spinal cord stimulator on 04/26/16 and who confirmed that in fact the device is not MRI compatible. CC: Dr. Jaquan Dallas; Dr. Rothman from [place], [place]; Dr. Connor Schwartz * [id number]/CPS #: [id number] A- [id number]/CPS #: [id number] [facility]
--- NOTE | 2016-05-02 13:40 | PN ---
Progress Note - Progress Note Note: Neurosurgery "Curbside" Note BENJIE Called to give input on this patient with pain that is limiting ambulation after spinal cord stimulator placement 04/26/2016 by [place] provider. History and physical as well as imaging reviewed. He had sustained strength by reports but increased baseline pain and a new spinal cord stimulator that enters lumbar spine and is placed in his mid-thoracic spine. He is unable to get definitive imaging (no MRI) and he is not known to this system or provider. We cannot interrogate or program or assess for the safety or management of his spinal cord stimulator at [facility] [place]. Given his recent surgery and full evaluation with them, it is most prudent for him to be transferred for full care by his surgeon. Hesham Sanchez MD [facility]
[2016-05-03] MEDS ORDERED: cefTRIAXone VIAL(*) 1,000 MG in NS 0.9% 50 ML* 50 ML IVPB SCH ×2
--- NOTE | 2016-05-03 01:31 | TRS ---
TRANSFER SUMMARY:* ADDENDUM: Please note that I spoke again with the anesthesiologist who implanted the spinal cord stimulator on 04/26/16 and who confirmed that in fact the device is not MRI compatible. [id number]/[facility] #: [id number] MTDD
[2016-05-03] MEDS ORDERED: Vancomycin Trough Check NOTE FOLLOW UP ONE (10:00)
== END 2016-05-02 13:15 | disposition short-term general hospital (02) | DRG 92 ==
LOC: ED 11:54 → MED 15:01
PROVIDERS: ADMIT Hospitalist; ATTEND Internal Medicine
PROC: 0T9B70Z Drainage of Bladder with Drainage Device, Via Natural or Artificial Opening (ICD-10-PCS; principal; 2016-05-01)
DX: T85.733A Infection and inflammatory reaction due to implanted electronic neurostimulator of spinal cord, electrode (lead), initial encounter (principal); T81.31XA Disruption of external operation (surgical) wound, not elsewhere classified, initial encounter; N18.3 Chronic kidney disease, stage 3 (moderate); B99.9 Unspecified infectious disease; I12.9 Hypertensive chronic kidney disease with stage 1 through stage 4 chronic kidney disease, or unspecified chronic kidney disease; G25.81 Restless legs syndrome; M48.9 Spondylopathy, unspecified; E03.9 Hypothyroidism, unspecified; E78.5 Hyperlipidemia, unspecified; M17.11 Unilateral primary osteoarthritis, right knee; K59.00 Constipation, unspecified; R33.8 Other retention of urine; S80.01XA Contusion of right knee, initial encounter; W18.30XA Fall on same level, unspecified, initial encounter; M96.1 Postlaminectomy syndrome, not elsewhere classified; Y83.8 Other surgical procedures as the cause of abnormal reaction of the patient, or of later complication, without mention of misadventure at the time of the procedure; Z79.899 Other long term (current) drug therapy; Y92.009 Unspecified place in unspecified non-institutional (private) residence as the place of occurrence of the external cause; Z88.2 Allergy status to sulfonamides; Z83.3 Family history of diabetes mellitus; Z80.9 Family history of malignant neoplasm, unspecified; Z82.49 Family history of ischemic heart disease and other diseases of the circulatory system; Z87.891 Personal history of nicotine dependence
CPT/HCPCS: 36415; 72100; 72128; 72131; 80048; 80053; 81003; 81015; 82550; 83605; 85025; 86140; 87040; A9270-GY; J0696; J1644; J2270; J3370

== ENCOUNTER 2016-05-14 13:11 | Inpatient (IN) | payer MEDICARE, BC ==
[2016-05-14 14:00] LABS: Hematocrit 30 % (42-52); Hemoglobin 9.7 g/dl (14.0-18.0); Mean Corpuscular HGB Conc 32 g/dl (31-36); Mean Corpuscular Hemoglobin 30 pg (27-31); Mean Corpuscular Volume 91 fL (80-94); Mean Platelet Volume 9 um3 (7.4-10.4); Red Blood Count 3.28 10^6/ul (4.0-5.4); Red Cell Distribution Width 13 % (10.5-15); White Blood Count 14.6 10^3/ul (3.5-10.8)
[2016-05-14 14:15] LABS: Ammonia 21 mol/L (16-53)
[2016-05-14 14:16] LABS: BUN/Creatinine Ratio 18.5 (8-20); C Reactive Protein 253.09 mg/L (< 5.00); Calcium 8.1 mg/dL (8.6-10.3); EGFR African American 28.2 (>60); Globulin 3.2 g/dL (2-4); Magnesium 2.1 mg/dL (1.9-2.7); Total Bilirubin 0.3 mg/dL (0.2-1.0); Total Protein 5.2 g/dL (6.4-8.9)
[2016-05-14 14:20] LABS: B Type Natriuretic Peptide 107 pg/mL
[2016-05-14 14:21] LABS: Troponin I 0.05 ng/mL (<0.04)
[2016-05-14 14:50] LABS: Urine Bacteria Absent (Absent); Urine Bilirubin Negative (Negative); Urine Glucose 1+(50 mg/dL) (Negative); Urine Nitrite Negative (Negative)
--- NOTE | 2016-05-14 15:11 | RAD ---
Indication: Abdominal pain. CT of the abdomen and pelvis was performed after oral contrast administration. No IV contrast was given. Coronal and sagittal reconstructed images were obtained. Lung bases demonstrate bilateral pleural effusion with compressive atelectasis. Heart is of normal size without evidence of pericardial effusion. Liver is normal in size. No focal lesions or intrahepatic ductal dilatation is noted. Gallbladder demonstrates no calcified gallstones. No pericholecystic fluid or wall thickening is identified. Pancreas demonstrates no mass or pancreatic ductal dilatation. The spleen demonstrates multiple calcifications likely from old granulomatous disease. No adrenal lesions are noted. The patient status post left nephrectomy. The right kidney is unremarkable with a right-sided extrarenal pelvis. Markedly distended right colon is noted. Hepatic flexure and transverse colon demonstrates no evidence of focal masses although air distention is noted. There is suggestion of a stricture in the sigmoid colon with distended proximal colon as well as a distended rectum. Infrarenal abdominal aorta aneurysm is noted. This measures approximately 4.1 cm in length x 3.4 cm AP x 3.4 cm in width. No hernias are noted. No pelvic adenopathy is noted. The urinary bladder demonstrates a Ortiz catheter in place. Small bowel demonstrates moderate distention. The T10 vertebra demonstrates mixed sclerotic and lytic lesion within the vertebra. This is similar in appearance to that seen on May 01, 2016. IMPRESSION: BILATERAL PLEURAL EFFUSION WITH BIBASILAR ATELECTASIS. PATIENT STATUS POST LEFT NEPHRECTOMY. DILATED RIGHT COLON WHICH TAPERS TO NORMAL CALIBER IN THE DESCENDING COLON. THERE IS SUGGESTION OF A STRICTURE IN THE SIGMOID COLON. 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
[2016-05-14] MEDS ORDERED: cefTRIAXone VIAL(*) 1,000 MG in NS 0.9% 50 ML* 50 ML IVPB ONE (15:16)
--- NOTE | 2016-05-14 16:23 | ED ---
Darshan Paniagua Billy, scribed for Raimundo Zarate MD on 05/14/16 at 1327 . Complex/Multi-Sys Presentation - HPI Summary HPI Summary: Patient is an 85 year-old male coming to [facility] from [facility] with his daughter for evaluation of fever. Patient also complains of RLQ abdominal pain for the last week as well as abdominal distension, which the patient's daughter states is quite unusual. His daughter is also concerned because the patient has had intermittent episodes of confusion since 2 days ago. As such, patient is unsure about the timing of his last BM. - History Of Current Complaint Chief Complaint: EDAbdPain Time Seen by Provider: 05/14/16 13:24 Hx Obtained From: Patient, Family/[employer] - daughter Onset/Duration: Gradual Onset, Lasting Days, Still Present Timing: Constant Severity Currently: Moderate Severity Initially: Moderate Location: Pain At: - RLQ Aggravating Factor(s): none Alleviating Factor(s): none Associated Signs And Symptoms: Positive: Confusion, Abdominal Pain, Fever, Other - abd distension - Allergies/Home Medications Allergies/Adverse Reactions: Allergies Allergy/AdvReac Type Severity Reaction Status Date / Time Sulfa Drugs Allergy Rash Verified 07/02/15 19:08 Home Medications: Home Medications Acetaminophen TAB* [Tylenol TAB*] 650 mg PO Q4H PRN 05/14/16 [History Confirmed 05/14/16] Aspirin EC Low Dose* [Ecotrin EC Low Dose*] 81 mg PO DAILY 05/14/16 [History Confirmed 05/14/16] Multivitamins/Minerals TAB* [Theragran/minerals TAB*] 1 tab PO DAILY 05/14/16 [ History Confirmed 05/14/16] NIFEdipine ER TAB* [Procardia Xl TAB*] 30 mg PO DAILY 05/14/16 [History Confirmed 05/14/16] Polyethylene Glycol 3350* [Miralax*] 17 gm PO DAILY PRN 05/14/16 [History Confirmed 05/14/16] Simvastatin TAB(NF) [Zocor(NF)] 10 mg PO BEDTIME 05/14/16 [History Confirmed 01/18] Terazosin CAP* [Hytrin CAP*] 5 mg PO DAILY 05/14/16 [History Confirmed 05/14/16] clonazePAM TAB(*) [KlonoPIN TAB(*)] 0.5 mg PO BEDTIME PRN 05/14/16 [History Confirmed 05/14/16] oxyCODONE TAB* [Roxycodone TAB 5 mg*] 5 mg PO Q4H PRN 05/14/16 [History Confirmed 05/14/16] oxyCODONE TAB* [Roxycodone TAB 5 mg*] 10 mg PO Q4H PRN MDD 12 05/14/16 [History Confirmed 05/14/16] PMH/Surg Hx/FS Hx/Imm Hx Endocrine/Hematology History: Reports: Hx Diabetes - DIET CONTROLLED Denies: Hx Anticoagulant Therapy, Hx Thyroid Disease Cardiovascular History: Reports: Hx Coronary Artery Disease, Hx Hypertension Respiratory History: Denies: Hx Asthma, Hx Chronic Obstructive Pulmonary Disease (COPD), Hx Lung Cancer GI History: Denies: Hx Gall Bladder Disease, Hx Gastrointestinal Bleed, Hx Ulcer, Hx Urosepsis History: Reports: Hx Benign Prostatic Hyperplasia Denies: Hx Kidney Stones, Hx Renal Disease - He has only his right kidney. The left one was taken out due to infection Musculoskeletal History: Reports: Hx Arthritis Sensory History: Reports: Hx Cataracts - removed, Hx Contacts or Glasses, Hx Hearing Problem Denies: Hx Hearing Aid Opthamlomology History: Reports: Hx Cataracts - removed, Hx Contacts or Glasses Neurological History: Denies: Hx Dementia, Hx Migraine, Hx Seizures, Hx Transient Ischemic Attacks (TIA) Comment Only: Other Neuro Impairments/Disorders - SPINAL STIMULATOR Psychiatric History: Denies: Hx Anxiety, Hx Depression, Hx Schizophrenia, Hx Bipolar Disorder - Surgical History Surgery Procedure, Year, and Place: back surgery feb 2009- right leg issues - drop foot. LEFT NEPHRECTOMY 1951 Infectious Disease History: No Infectious Disease History: Reports: Hx Shingles - Got into eye Denies: Hx Clostridium Difficile, Hx Hepatitis, Hx Human Immunodeficiency Virus (HIV), Hx of Known/Suspected MRSA, History Other Infectious Disease, Traveled Outside the [place] in Last 30 Days - Family History Known Family History: Positive: Hypertension, Diabetes - Social History Alcohol Use: Daily Alcohol Amount: 2 BEERS/DAY Substance Use Type: Reports: None Smoking Status (MU): Former Smoker Review of Systems Positive: Fever Positive: Abdominal Pain, Other - distension Neurological: Other - confusion All Other Systems Reviewed And Are Negative: Yes Physical Exam - Summary Physical Exam Summary: VITAL SIGNS: Reviewed. GENERAL: Patient is an elderly fragile male who is lying comfortable in the stretcher. Patient is not in any acute respiratory distress. HEAD AND FACE: Normocephalic and atraumatic. EYES: PERRLA, EOMI x 2, No injected conjunctiva. EARS: Hearing grossly intact. Ear canals and tympanic membranes are WNL. MOUTH: Oropharynx within normal limits. NECK: Supple, trachea is midline, no adenopathy, no JVD. CHEST: Symmetric, no tenderness at palpation LUNGS: Clear to auscultation bilaterally. No wheezing or crackles. CVS: RRR,, S1 and S2 present, no murmurs or gallops appreciated. ABDOMEN: Soft,positive right flank tenderness and abdominal distention. Decreased BS. EXTREMITIES: FROM in all major joints, no edema, no cyanosis or clubbing. NEURO: Alert and oriented x 3. No acute neurological deficits. Speech is normal. SKIN: Dry and warm Triage Information Reviewed: Yes Vital Signs On Initial Exam: Initial Vitals Temp Pulse Resp BP Pulse Ox 98 F 92 18 115/58 93 05/14/16 13:17 05/14/16 13:17 05/14/16 13:17 05/14/16 13:17 05/14/16 13:17 Vital Signs Reviewed: Yes Diagnostics - Vital Signs Vital Signs Temp Pulse Resp BP Pulse Ox 05/14/16 13:17 98 F 92 18 115/58 93 - Laboratory Lab Results: Lab Results 05/14/16 05/14/16 05/14/16 Range/Units 13:01 13:40 13:40 WBC 14.6 H (3.5-10.8) 10^3/ul RBC 3.28 L (4.0-5.4) 10^6/ul Hgb 9.7 L (14.0-18.0) g/dl Hct 30 L (42-52) % MCV 91 (80-94) fL MCH 30 (27-31) pg MCHC 32 (31-36) g/dl RDW 13 (10.5-15) % Plt Count 296 (150-450) 10^3/ul MPV 9 (7.4-10.4) um3 Neut % (Auto) 83.6 H (38-83) % Lymph % (Auto) 7.8 L (25-47) % Merrick % (Auto) 7.0 (1-9) % Eos % (Auto) 1.3 (0-6) % Baso % (Auto) 0.3 (0-2) % Absolute Neuts (auto) 12.2 H (1.5-7.7) 10^3/ul Absolute Lymphs (auto) 1.1 (1.0-4.8) 10^3/ul Absolute Monos (auto) 1.0 H (0-0.8) 10^3/ul Absolute Eos (auto) 0.2 (0-0.6) 10^3/ul Absolute Basos (auto) 0 (0-0.2) 10^3/ul Absolute Nucleated RBC 0.01 10^3/ul Nucleated RBC % 0 INR (Anticoag Therapy) (0.89-1.11) APTT (26.0-36.3) seconds Sodium 134 (133-145) mmol/L Potassium 4.0 (3.5-5.0) mmol/L Chloride 106 (101-111) mmol/L Carbon Dioxide 21 L (22-32) mmol/L Anion Gap 7 (2-11) mmol/L BUN 51 H (6-24) mg/dL Creatinine 2.76 H (0.67-1.17) mg/dL Est GFR ( Amer) 28.2 (>60) Est GFR (Non-Af Amer) 22.0 (>60) BUN/Creatinine Ratio 18.5 (8-20) Glucose 198 H (70-100) mg/dL Lactic Acid (0.5-2.0) mmol/L Calcium 8.1 L (8.6-10.3) mg/dL Magnesium 2.1 (1.9-2.7) mg/dL Total Bilirubin 0.30 (0.2-1.0) mg/dL AST 18 (13-39) U/L ALT 27 (7-52) U/L Alkaline Phosphatase 146 H (34-104) U/L Ammonia (16-53) mol/L Troponin I 0.05 H* (<0.04) ng/mL C-Reactive Protein 253.09 H (< 5.00) mg/L B-Natriuretic Peptide ( - 100) pg/mL Total Protein 5.2 L (6.4-8.9) g/dL Albumin 2.0 L (3.2-5.2) g/dL Globulin 3.2 (2-4) g/dL Albumin/Globulin Ratio 0.6 L (1-3) Amylase 18 L (29-103) U/L Lipase 23 (11.0-82.0) U/L Urine Color Yellow Urine Appearance Cloudy Urine pH 6.0 (5-9) Ur Specific Halfway 1.013 (1.010-1.030) Urine Protein 3+(>=500 mg/dl) H (Negative) Urine Ketones Negative (Negative) Urine Blood Negative (Negative) Urine Nitrate Negative (Negative) Urine Bilirubin Negative (Negative) Urine Urobilinogen Negative (Negative) Ur Leukocyte Esterase 1+ H (Negative) Urine WBC (Auto) 3+(>20/hpf) H (Absent) Urine RBC (Auto) Absent (Absent) Ur Squamous Epith Cells Present H (Absent) Urine Bacteria Absent (Absent) Urine Glucose 1+(50 mg/dl) H (Negative) Urine Ascorbic Acid * H (Negative) 05/14/16 05/14/16 05/14/16 Range/Units 13:40 13:40 13:40 WBC (3.5-10.8) 10^3/ul RBC (4.0-5.4) 10^6/ul Hgb (14.0-18.0) g/dl Hct (42-52) % MCV (80-94) fL MCH (27-31) pg MCHC (31-36) g/dl RDW (10.5-15) % Plt Count (150-450) 10^3/ul MPV (7.4-10.4) um3 Neut % (Auto) (38-83) % Lymph % (Auto) (25-47) % Merrick % (Auto) (1-9) % Eos % (Auto) (0-6) % Baso % (Auto) (0-2) % Absolute Neuts (auto) (1.5-7.7) 10^3/ul Absolute Lymphs (auto) (1.0-4.8) 10^3/ul Absolute Monos (auto) (0-0.8) 10^3/ul Absolute Eos (auto) (0-0.6) 10^3/ul Absolute Basos (auto) (0-0.2) 10^3/ul Absolute Nucleated RBC 10^3/ul Nucleated RBC % INR (Anticoag Therapy) 1.21 H (0.89-1.11) APTT 29.0 (26.0-36.3) seconds Sodium (133-145) mmol/L Potassium (3.5-5.0) mmol/L Chloride (101-111) mmol/L Carbon Dioxide (22-32) mmol/L Anion Gap (2-11) mmol/L BUN (6-24) mg/dL Creatinine (0.67-1.17) mg/dL Est GFR ( Amer) (>60) Est GFR (Non-Af Amer) (>60) BUN/Creatinine Ratio (8-20) Glucose (70-100) mg/dL Lactic Acid 1.6 (0.5-2.0) mmol/L Calcium (8.6-10.3) mg/dL Magnesium (1.9-2.7) mg/dL Total Bilirubin (0.2-1.0) mg/dL AST (13-39) U/L ALT (7-52) U/L Alkaline Phosphatase (34-104) U/L Ammonia 21 (16-53) mol/L Troponin I (<0.04) ng/mL C-Reactive Protein (< 5.00) mg/L B-Natriuretic Peptide 107 H ( - 100) pg/mL Total Protein (6.4-8.9) g/dL Albumin (3.2-5.2) g/dL Globulin (2-4) g/dL Albumin/Globulin Ratio (1-3) Amylase (29-103) U/L Lipase (11.0-82.0) U/L Urine Color Urine Appearance Urine pH (5-9) Ur Specific Halfway (1.010-1.030) Urine Protein (Negative) Urine Ketones (Negative) Urine Blood (Negative) Urine Nitrate (Negative) Urine Bilirubin (Negative) Urine Urobilinogen (Negative) Ur Leukocyte Esterase (Negative) Urine WBC (Auto) (Absent) Urine RBC (Auto) (Absent) Ur Squamous Epith Cells (Absent) Urine Bacteria (Absent) Urine Glucose (Negative) Urine Ascorbic Acid (Negative) Result Diagrams: 05/14/16 13:40 05/14/16 13:40 Lab Statement: Any lab studies that have been ordered have been reviewed, and results considered in the medical decision making process. - CT abd/pel CT Interpretation Completed By: Radiologist - BILATERAL PLEURAL EFFUSION WITH BIBASILAR ATELECTASIS. PATIENT STATUS POST LEFT NEPHRECTOMY. DILATED RIGHT COLON WHICH TAPERS TO NORMAL CALIBER IN THE DESCENDING COLON. THERE IS SUGGESTION OF A STRICTURE IN THE SIGMOID COLON. 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 - EKG 1352 EKG Interpretation: NSR 92 bpm, no ST elevation Complex Multi-Symp Course/Dx Assessment/Plan: Patient is an 85 year-old male coming to [facility] from [facility] with his daughter for evaluation of fever. Patient also complains of RLQ abdominal pain for the last week as well as abdominal distension, which the patient's daughter states is quite unusual. His daughter is also concerned because the patient has had intermittent episodes of confusion since 2 days ago. As such, patient is unsure about the timing of his last BM. WBC 14.6. Positive normocytic normochromic anemia. Worsening renal failure. Hypocalcemia of 8.1. Trop is 0.05 and CRP is 253. UA shows 3+ protein, positive leukocytes, 3 + WBC, therefore the pt was given Rocephin to treat UTI until we receive urine cultures. I decided to order CT abd/pel with PO contast since he has abdominal distension and right-sided abdominal pain. Results show bilateral pleural effusions with bibasilar atelectasis, s/p left nephrectomy, dilated right colon and suggestion of stricture in the sigmoid colon. There is also infrarenal AAA measuring 3.4 cm. In the ED course patient was given IV fluids for hydration and he was placed on Rocephin and given 1x dose of Morphine for pain. I discussed my physical exam findings and test results who accepted the pt for admission. He is hemodynamically stable, A&Ox3. - Diagnoses Differential Diagnoses/HQI/PQRI: Urinary Tract Infection, Other - Bowel obstruction, Utrinary retention, Provider Diagnoses: UTI (urinary tract infection), r/o sepsis, Acute on chronic renal failure, Dehydration - Physician Notifications Discussed Care Of Patient With: Dr. Torres (hospitalist) @ [id number]: accepts admission. Discharge - Discharge Plan Condition: Stable Disposition: ADMITTED TO [facility] The documentation as recorded by the Darshan mccoy Billy accurately reflects the service I personally performed and the decisions made by me, Zarate,Raimundo, MD.
[2016-05-14] MEDS ORDERED: Morphine INJ* 4 MG/ML 1 ML CARPUJECT ONE (17:11)
[2016-05-14] MEDS: Morphine INJ* 4 MG/ML 1 ML CARPUJECT IV PRN ×2 (17:13→21:52)
[2016-05-14] MEDS ORDERED: NS 0.9% 1000 ML* 1,000 ML IV SCH (17:30)
[2016-05-14 18:03] LABS: Uric Acid 9.2 mg/dL (4.4-7.6)
[2016-05-14] MEDS ORDERED: Midazolam* 1 MG/ML 10 ML VIAL (10 MG) ONE (18:29)
[2016-05-14] MEDS ORDERED: fentaNYL* 50 MCG/ML 2 ML VIAL (100 MCG VIAL) ONE (18:30)
[2016-05-14] MEDS ORDERED: Piperac/Tazob 3.375 gm in NS* 3.375 GM/100 ML BAG IVPB ONE (18:30)
--- NOTE | 2016-05-14 20:21 | HP ---
HISTORY AND PHYSICAL: DATE OF ADMISSION: 05/14/16 The patient is a resident of [facility]. CHIEF COMPLAINT: Abdominal pain. HISTORY OF PRESENT ILLNESS: Mr. Joy is an 85-year-old male with past medical history of hyperten tnoey, hypothyroidism, peripheral artery disease, hyperlipidemia, CKD, urinary retention and chronic pain who was recently admitted at this hospital who presents with worsening abdominal distention and pain. The patient states he is confused at the moment and was unable to give a totally reliable hi story. History is obtained from family who is present. They stated that they noticed yesterday that the patient was having some increased confusion over the course of the evening. Also at dinner beg an to complain of some right lower quadrant pain. He had been having some low-grade fevers over the prior days as well. The pain worsened overnight and today the patient was noted to have an elevated temperature at 101.4 along with worsening abdominal distention and pain. The patient also has had some left hand pain and swelling. Family states he had an IV infiltrated d uring his previous admission; however, this seemed to improve but now they have noted some increased redness, swelling and pain in the left hand as well. The patient was admitted to [facility] from 05/01/16 to 05/02/16. He initially came in f or pain and frequent falls after a recent spinal cord stimulator was placed. The patient was transf erred to [facility] for further evaluation and removal of the spinal stimulator, which w as done. The patient was reportedly on IV and oral antibiotics there and completed his course as he was not discharged to [facility] on any further antibiotics. The patient has 2 wounds in the back from the stimulator that have been treated at [facility] with packing and dressing changes. The patient repo rts some subjective chills. Denies any chest pain, shortness of breath, nausea, vomiting. He and h is family are unclear when his last bowel movement was. In the emergency department, the patient underwent a CT scan that showed a significantly distended c olon and hospitalist service was consulted for consideration of admission. PAST MEDICAL HISTORY: Hypertension, arthritis, hypothyroidism, peripheral artery disease, hyperlipi demia, CKD, chronic pain, urinary retention on recent hospitalization and has had a Ortiz since. PAST SURGICAL HISTORY: Nephrectomy, laminectomy, lower extremity arterial stents, appendectomy. ALLERGIES: The patient reports allergies to SULFA and CILOSTAZOL. FAMILY HISTORY: The patient's mother had an AR. Uncle had diabetes. Father with cancer, unknown w hat kind. SOCIAL HISTORY: The patient has a [id number] smoking history, quit some point over the past year or so. Denies any current alcohol use; however, used to be a heavy drinker. No illicit drug use. REVIEW OF SYSTEMS: A 12-point review of systems is negative except for that noted in the HPI. PHYSICAL EXAMINATION GENERAL: The patient is an elderly man, lying in bed, in no apparent distress. VITAL SIGNS: On admission, temperature 98.0, heart rate of 92, respiratory rate of 18, O2 saturatio n 93% on room air, blood pressure 115/58. HEENT: Mild left ptosis. Pupils equal, round and reactive to light and accommodation. Anicteric s clerae. Dry mucous membranes. NECK: No cervical adenopathy. LUNGS: Clear to auscultation. Some diminished breath sounds in the bases. CARDIOVASCULAR: Regular rate and rhythm. S1 and S2 present. No murmurs, gallops, or rubs. ABDOMEN: Soft, distended on the right side greater than the left. Tympanic. Has some tinkling yessica wel sounds. Tender to palpation in the right upper and lower quadrants. No rebound or guarding. EXTREMITIES: No lower extremity edema. The patient has heel protectors on bilaterally. Left hand with some edema, minimal erythema; however, it is tender to palpation along the wrist and dorsum of the hand. NEUROLOGIC: The patient is alert, oriented to self, place, year, month and president. LABS AND DIAGNOSTICS: White blood cell count 14.6, hematocrit of 30, platelets 296. INR of 1.21. Sodium of 134, potassium 4, chloride of 106, carbon dioxide 21, BUN 51, creatinine of 2.76, glucose of 198, lactic acid of 1.6, calcium was 8.1. Alk phos of 146, ammonia of 21, troponin of 0.05, CRP of 253, B-natriuretic peptide of 107. UA with 3+ protein, 1+ leuk esterase, 3+ wbc's, no bacteria. EKG personally reviewed shows normal sinus rhythm. No acute ischemic changes. Q- waves in V1 and V 2. CT abdomen and pelvis shows bilateral pleural effusion with bibasilar atelectasis, status post l eft nephrectomy, dilated right colon which tapers to normal caliber in the descending colon. There is suggestion of a stricture in the sigmoid colon. Infrarenal abdominal aortic aneurysm measuring u p to 3.4 cm in greatest AP dimension. ASSESSMENT AND PLAN: Abdominal pain and distention secondary to colonic distention, possibly sigmoi d volvulus in an 85-year-old male with past medical history of hypertension, hypothyroidism, periphe ral artery disease, hyperlipidemia, chronic kidney disease, urinary retention and chronic pain and r [facility] hospital stay for removal of spinal stimulator and possible infection. 1. Colonic distention, possible sigmoid volvulus. I spoke with Dr. Vaca who evaluated the patien t. He will take the patient urgently for sigmoidoscopy to try to reduce the volvulus and if he is a ble to at least to try to decompress some of the colon. The patient's lactate is normal. However, he had a reported fever at the snf. He has received ceftriaxone. I will change the patien t over to Zosyn for now to cover any possible microperforations or bacterial translocation. Monitor for any further fevers and keep a close eye on blood cultures. Keep the patient n.p.o. for now. We will defer to GI for diet after the procedure. 2. Left hand pain and swelling. We will get a x-ray of the hand to rule out any trauma or fracture . The patient states this is similar to previous episodes of gout that he has had. The patient silvia l be on IV morphine tonight for his abdominal pain. If he has continued pain and swelling in the mo rning, we will consider short course of prednisone. 3. Mildly positive urinalysis. The patient has chronic Ortiz, unclear if this is contributing to t he current picture at all. However, the patient will be on Zosyn. This will cover any urinary patho gens and monitor for culture results. 4. Hypertension. Hold home nifedipine and lisinopril. 5. Hypothyroidism. We will continue Synthroid via IV. 6. Hyperlipidemia. Hold statin for now. 7. Chronic pain. IV morphine in place of home oral oxycodone. 8. Acute kidney injury and chronic kidney disease. The patient had some reported acute kidney dise ase at his [facility] stay. This was thought to be due to multifactorial. He apparently had ajit e IV fluids with improvement in his renal function. It is unclear if this creatinine of 2.76 is hig her or on the way back down since his hospital stay. We will place him on IV fluids overnight tonig ht and recheck BMP in the morning. 9. DVT prophylaxis. Heparin subcu. 10. Code status. The patient is a DNR/DNI. MOLST has been filled out to that effect and updated. 11. Mild troponin elevation, seems like this is unrelated to any cardiac issues. We will trend the troponins overnight. No ischemic changes on the EKG. TIME SPENT: Total time spent on this admission 55 minutes, with over the half the time spent face-t o-face with the patient in counseling and coordinating care. [id number]/[facility] #: [id number]
--- NOTE | 2016-05-14 21:14 | RAD ---
HISTORY: Left hand pain and swelling COMPARISONS: January 16, 2016 VIEWS: 2, Frontal and lateral views of the left hand FINDINGS: BONE DENSITY: There is diffuse osteopenia. BONES: There are sharply marginated juxta-articular erosions of the interphalangeal joints JOINTS: There is mild to moderate osteoarthritis of interphalangeal joints and first MCP joint. As noted above, there are sharply marginated juxta-articular erosions of the interphalangeal joints ALIGNMENT: There is no dislocation. SOFT TISSUES: Unremarkable. OTHER FINDINGS: None. IMPRESSION: 1. OSTEOPENIA. 2. OSTEOARTHRITIS. 3. 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
[2016-05-14] MEDS: Heparin VIAL(*) 5000 UNITS/ML VIAL (FIVE THOUSAND) SUBCUT SCH (21:49)
[2016-05-14] MEDS ORDERED: Piperac/Tazob 3.375 gm in NS* 3.375 GM/100 ML BAG IVPB SCH (22:30)
[2016-05-14] MEDS ORDERED: Acetaminophen SUPP* 650 MG SUPP PR PRN (23:52)
[2016-05-15] MEDS: Piperac/Tazob 3.375 gm in NS* 3.375 GM/100 ML BAG IVPB SCH ×2 (01:02→12:28)
--- NOTE | 2016-05-15 03:21 | PRO ---
DATE OF PROCEDURE: 05/14/16 - ROOM #439 PROCEDURE: Sigmoidoscopy with decompression of the colon. MEDICINES: Versed 2 mg IV. NARRATIVE: Mr. Joy is an 85-year-old gentleman, resident at a snf, who presents with abdominal distention and pain. The symptoms have been going on a couple of days and has been accompanied by constipation. He presented to the emergency room and on CAT scan, which I did review, he had a markedly dilated proximal colon, particularly the cecum with decompression and narrowing of the distal colon. The appearance was suggestive of perhaps a volvulus. Due to that, emergent sigmoidoscopy was recommended. DESCRIPTION OF PROCEDURE: The procedure was discussed with both the patient and his family. Risks were reviewed and the patient consented. He was brought to the endoscopy suite and Versed was administered. A video pediatric colonoscope was inserted anally and advanced very carefully through the colon up to a distance of about 70 cm, which seemed to correlate to the transverse colon, perhaps the ascending colon. At that point, the procedure was terminated due to the nature of the debris inside the colon and the fact that his abdomen did decompress at that level. The patient tolerated the procedure well and there were no immediate complications. DIAGNOSTIC FINDINGS: The colon had areas of dilation followed by areas of constriction, which would be suggestive of a volvulus. There was a significant amount of debris seen and we did perform extensive irrigation and suctioning. There was no mucosal lesion or evidence of ischemia. There was no mass. Postprocedure, the patient's abdomen was much decompressed and he was reporting no pain. CONCLUSION: Decompressive sigmoidoscopy for probable sigmoid volvulus. RECOMMENDATIONS: He will be kept in the hospital. A bowel regimen would need to be instituted and given chronically to prevent recurrence. This was discussed with him and his family. [id number]/[facility] #: [id number] [facility]
[2016-05-15] MEDS: Heparin VIAL(*) 5000 UNITS/ML VIAL (FIVE THOUSAND) SUBCUT SCH ×3 (05:39→21:51)
[2016-05-15] MEDS ORDERED: Levothyroxine INJ* 100 MCG/5 ML VIAL IV SCH (06:00)
[2016-05-15 06:23] LABS: Hematocrit 26 % (42-52); Hemoglobin 8.6 g/dl (14.0-18.0); Mean Corpuscular HGB Conc 33 g/dl (31-36); Mean Corpuscular Hemoglobin 30 pg (27-31); Mean Corpuscular Volume 91 fL (80-94); Mean Platelet Volume 9 um3 (7.4-10.4); Red Blood Count 2.89 10^6/ul (4.0-5.4); Red Cell Distribution Width 13 % (10.5-15); White Blood Count 12.2 10^3/ul (3.5-10.8)
[2016-05-15 06:35] LABS: BUN/Creatinine Ratio 18.7 (8-20); Calcium 7.7 mg/dL (8.6-10.3); EGFR African American 29.3 (>60); EGFR Non-African American 22.8 (>60); Potassium 4.1 mmol/L (3.5-5.0)
[2016-05-15] MEDS: Morphine INJ* 4 MG/ML 1 ML CARPUJECT IV PRN ×2 (07:39→10:24)
[2016-05-15] MEDS ORDERED: Acetaminophen TAB* 325 MG PO PRN (10:06)
[2016-05-15] MEDS ORDERED: clonazePAM TAB(*) 0.5 MG PO PRN (10:06)
[2016-05-15] MEDS: Polyethylene Glycol 3350* 17 GM PACKET PO SCH (10:24)
[2016-05-15] MEDS: predniSONE TAB* 20 MG PO SCH (11:06)
[2016-05-15] MEDS: Aspirin EC Low Dose* 81 MG TAB.EC PO SCH (11:06)
--- NOTE | 2016-05-15 13:39 | PN ---
Subjective Date of Service: 05/15/16 Interval History: Patient seen this morning. Reports abdominal pain is much improved post- procedure. No BM yet. Tolerating clears. Continues to have L hand pain as well as chronic back and LE pain. Nursing reports some sanguineous drainage from back dressings Family History: Unchanged from Admission Social History: Unchanged from Admission Past Medical History: Unchanged from Admission Objective Active Medications: Acetaminophen (Tylenol Supp*) 650 mg SD Q6H PRN Acetaminophen (Tylenol Tab*) 650 mg PO Q4H PRN Aspirin (Aspirin Ec Low Dose*) 81 mg PO DAILY [facility] Clonazepam (Klonopin Tab(*)) 0.5 mg PO BEDTIME PRN Heparin Sodium (Porcine) (Heparin Vial(*)) 5,000 units SUBCUT Q8HR [facility] Piperacillin Sod/Tazobactam Sod (Zosyn 3.375 Gm In Ns Premix*) 3.375 gm in 100 mls @ 25 mls/hr IVPB 0100,1300 [facility] Levothyroxine Sodium (Synthroid Tab*) 100 mcg PO DAILY@0600 [facility] Morphine Sulfate (Morphine Inj (Syringe)*) 4 mg IV Q2H PRN Multivitamins/Minerals (Theragran/Minerals Tab*) 1 tab PO DAILY [facility] Polyethylene Glycol/Electrolytes (Miralax*) 17 gm PO DAILY [facility] Pramipexole Dihydrochloride (Mirapex Tab*) 0.25 mg PO BEDTIME [facility] Prednisone (Deltasone Tab*) 40 mg PO DAILY [facility] Simvastatin (Zocor(Nf)) 10 mg PO BEDTIME [facility] Terazosin HCl (Hytrin Cap*) 5 mg PO DAILY [facility] Vital Signs 05/14/16 05/14/16 05/14/16 15:51 16:00 16:10 Temperature Pulse Rate 87 93 92 Respiratory Rate Blood Pressure 142/57 139/54 (mmHg) O2 Sat by Pulse 97 95 82 Oximetry 05/15/16 05/15/16 05/15/16 07:32 07:34 07:39 Temperature 99.7 F Pulse Rate Respiratory 20 Rate Blood Pressure 125/66 (mmHg) O2 Sat by Pulse Oximetry 05/15/16 05/15/16 05/15/16 08:00 08:39 09:00 Temperature Pulse Rate Respiratory 16 Rate Blood Pressure 115/53 131/55 (mmHg) O2 Sat by Pulse Oximetry 05/15/16 05/15/16 05/15/16 10:00 10:24 11:18 Temperature 98.4 F Pulse Rate 88 Respiratory 20 16 Rate Blood Pressure 134/107 101/47 (mmHg) O2 Sat by Pulse 93 Oximetry Oxygen Devices in Use Now: Nasal Cannula - 2L Appearance: Elderly, M, laying in bed in NAD Eyes: No Scleral Icterus Ears/Nose/Mouth/Throat: Mucous Membranes Moist Neck: NL Appearance and Movements; NL JVP Respiratory: Symmetrical Chest Expansion and Respiratory Effort, Clear to Auscultation Cardiovascular: NL Sounds; No Murmurs; No JVD, RRR Abdominal: - - Soft, non-distended (much improved), mild TTP in RUQ and RLQ, BS+ , no rebound/guarding Lymphatic: No Cervical Adenopathy Extremities: - - L hand with some edema, some tenderness and warmth at L wrist Neurological: Alert and Oriented x 3 Result Diagrams: 05/15/16 05:54 05/15/16 05:49 Microbiology and Other Data: Microbiology 05/14/16 16:10 Nasal Screen MRSA (PCR)(ANDRE) - Final Nasal Mrsa Negative Assess/Plan/Problems-Billing Assessment: Sigmoid volvulus s/p decompression, gout flare in an 85 yo M with hx of HTN, PAD , CKD, HLD, hypothyroidism, urinary retention, chronic pain and recent placement and removal of spinal stimulator - Patient Problems (1) Sigmoid volvulus Current Visit: Yes Comment: Appreciate GI assistance. S/P colonic decompression from sigmoidoscopy by Dr. Vaca. Symptoms largely improved. Tolerating clear liquids, will advance to soft diet. Miralax daily, monitor for BMs. Fever related to volvulus? bacterial translocation. Continue Zosyn for now. Leukocytosis improving, monitor cultures and for any further fevers. (2) Gout attack Current Visit: Yes Comment: Hand x-ray negative for fracture. Patient reports this is similar to his previous gout flares. Will start prednisone 40 mg PO daily. Do not think patient has septic arthritis. (3) HTN (hypertension) Current Visit: No Comment: Holding Lisinopril and Nifedipine for now (4) Hypothyroidism Current Visit: No Comment: Continue Levothyroxine (5) Urinary retention Current Visit: No Comment: Contiludy coronadoey for now (6) RUDY (acute kidney injury) Current Visit: Yes Comment: Renal function improving. Avoid nephrotoxic medications, BMP daily. (7) Elevated troponin Current Visit: Yes Comment: Unchanged from admission, no need to trend further (8) Wound of back Current Visit: Yes Comment: Reviewed [facility] d/c summary (in patients chart). Received complete course of ABx while in the hospital, did not seem to be deep infection, called cellulitis. MRI did not show any signs of verteberal involvement. Presently, does not appear to be infected, is having some drainage and is fairly deep. Will ask wound care to evaluate. (9) Chronic pain Current Visit: Yes Comment: Restart home Oxy IR, stop IV morphine (10) DVT prophylaxis Current Visit: No Comment: HSQ
[2016-05-15] MEDS ORDERED: oxyCODONE TAB* 5 MG TAB PO PRN (14:08)
[2016-05-15] MEDS: oxyCODONE TAB* 5 MG TAB PO PRN (15:21)
[2016-05-15] MEDS: Pramipexole TAB* 0.125 MG PO SCH (21:47)
[2016-05-15] MEDS: CMCS: Simvastatin TAB(NF) 10 MG TAB PO SCH (21:48)
[2016-05-16] MEDS: Piperac/Tazob 3.375 gm in NS* 3.375 GM/100 ML BAG IVPB SCH ×2 (01:12→13:14)
[2016-05-16] MEDS: Levothyroxine TAB* 100 MCG TAB PO SCH (05:30)
[2016-05-16] MEDS: Heparin VIAL(*) 5000 UNITS/ML VIAL (FIVE THOUSAND) SUBCUT SCH ×3 (05:34→20:14)
[2016-05-16] MEDS: Aspirin EC Low Dose* 81 MG TAB.EC PO SCH (08:03)
[2016-05-16] MEDS: Polyethylene Glycol 3350* 17 GM PACKET PO SCH (08:03)
[2016-05-16] MEDS: Terazosin CAP* 5 MG PO SCH (08:03)
[2016-05-16] MEDS: oxyCODONE TAB* 5 MG TAB PO PRN ×4 (08:03→21:58)
[2016-05-16] MEDS: Multivitamins/Minerals TAB PO SCH (08:03)
[2016-05-16] MEDS: predniSONE TAB* 20 MG PO SCH (08:03)
[2016-05-16 08:24] LABS: Hematocrit 25 % (42-52); Hemoglobin 8.1 g/dl (14.0-18.0); Mean Corpuscular HGB Conc 32 g/dl (31-36); Mean Corpuscular Hemoglobin 30 pg (27-31); Mean Corpuscular Volume 91 fL (80-94); Mean Platelet Volume 9 um3 (7.4-10.4); Red Blood Count 2.76 10^6/ul (4.0-5.4); Red Cell Distribution Width 13 % (10.5-15); White Blood Count 9.1 10^3/ul (3.5-10.8)
[2016-05-16 08:34] LABS: BUN/Creatinine Ratio 23.4 (8-20); Calcium 7.6 mg/dL (8.6-10.3); EGFR Non-African American 26.4 (>60); Potassium 4.2 mmol/L (3.5-5.0)
--- NOTE | 2016-05-16 13:40 | PN ---
Subjective Date of Service: 05/16/16 Interval History: Patient seen this afternoon. Reports feeling well, denies any abdominal pain. Wrist pain also improving. Had BM x 2. No fever or chills. Chronic pain well controlled. Family History: Unchanged from Admission Social History: Unchanged from Admission Past Medical History: Unchanged from Admission Objective Active Medications: Acetaminophen (Tylenol Supp*) 650 mg CO Q6H PRN Acetaminophen (Tylenol Tab*) 650 mg PO Q4H PRN Aspirin (Aspirin Ec Low Dose*) 81 mg PO DAILY [facility] Clonazepam (Klonopin Tab(*)) 0.5 mg PO BEDTIME PRN Fluorometholone Acetate (Fml 0.1% Opth.Susp*) 1 drop LEFT EYE DAILY [facility] Heparin Sodium (Porcine) (Heparin Vial(*)) 5,000 units SUBCUT Q8HR [facility] Levothyroxine Sodium (Synthroid Tab*) 100 mcg PO DAILY@0600 [facility] Multivitamins/Minerals (Theragran/Minerals Tab*) 1 tab PO DAILY [facility] Oxycodone HCl (Roxycodone Tab*) 5 mg PO Q4H PRN Oxycodone HCl (Roxycodone Tab*) 10 mg PO Q4H PRN Polyethylene Glycol/Electrolytes (Miralax*) 17 gm PO DAILY [facility] Pramipexole Dihydrochloride (Mirapex Tab*) 0.25 mg PO BEDTIME [facility] Prednisone (Deltasone Tab*) 40 mg PO DAILY [facility] Simvastatin (Zocor(Nf)) 10 mg PO BEDTIME [facility] Terazosin HCl (Hytrin Cap*) 5 mg PO DAILY [facility] Vital Signs 05/15/16 05/15/16 05/15/16 13:53 14:55 15:21 Temperature Pulse Rate 91 Respiratory 16 Rate Blood Pressure 96/42 96/48 (mmHg) O2 Sat by Pulse 98 Oximetry 05/15/16 05/15/16 05/15/16 19:15 20:00 23:36 Temperature 98.5 F 98.2 F Pulse Rate 78 76 Respiratory 16 16 16 Rate Blood Pressure 107/46 112/48 (mmHg) O2 Sat by Pulse 95 95 Oximetry 05/16/16 05/16/16 05/16/16 03:20 07:05 07:14 Temperature 97.5 F 97.6 F Pulse Rate 73 78 Respiratory 16 18 16 Rate Blood Pressure 119/47 131/53 (mmHg) O2 Sat by Pulse 95 100 Oximetry 05/16/16 05/16/16 05/16/16 08:03 10:03 11:24 Temperature 97.8 F Pulse Rate 81 Respiratory 18 20 16 Rate Blood Pressure 123/56 (mmHg) O2 Sat by Pulse 97 Oximetry Oxygen Devices in Use Now: None Appearance: Elderly, M, laying in bed in NAD Eyes: No Scleral Icterus Ears/Nose/Mouth/Throat: Mucous Membranes Moist Neck: NL Appearance and Movements; NL JVP Respiratory: Symmetrical Chest Expansion and Respiratory Effort, Clear to Auscultation Cardiovascular: NL Sounds; No Murmurs; No JVD, RRR Abdominal: - - Soft, distended, mild TTP in RUQ and RLQ, BS hyperactive, some normal some tinkling, no rebound/guarding Lymphatic: No Cervical Adenopathy Extremities: No Edema, - - L wrist with improvement in edema, ROM Neurological: Alert and Oriented x 3 Result Diagrams: 05/16/16 08:09 05/16/16 08:09 Assess/Plan/Problems-Billing Assessment: Sigmoid volvulus s/p decompression, gout flare in an 85 yo M with hx of HTN, PAD , CKD, HLD, hypothyroidism, urinary retention, chronic pain and recent placement and removal of spinal stimulator - Patient Problems (1) Sigmoid volvulus Current Visit: Yes Comment: Appreciate GI assistance. S/P colonic decompression from sigmoidoscopy by Dr. Vaca. Symptoms largely improved although still with some distension and abnormal bowel sounds, however patient denies pain and has been moving boewels and tolerating diet. Miralax daily. Fever related to volvulus? bacterial translocation. Stop Zosyn and monitor for fever. Leukocytosis resolved. No growth on cultures. (2) Gout attack Current Visit: Yes Comment: Continue Prednisone 40 mg PO daily. (3) HTN (hypertension) Current Visit: No Comment: Holding Lisinopril and Nifedipine for now (4) Hypothyroidism Current Visit: No Comment: Continue Levothyroxine (5) Urinary retention Current Visit: No Comment: Andry kate (6) RUYD (acute kidney injury) Current Visit: Yes Comment: Renal function improving. Avoid nephrotoxic medications, BMP daily. (7) Elevated troponin Current Visit: Yes Comment: Unchanged from admission, no need to trend further (8) Wound of back Current Visit: Yes Comment: Reviewed [facility] d/c summary (in patients chart). Received complete course of ABx while in the hospital, did not seem to be deep infection, called cellulitis. MRI did not show any signs of verteberal involvement. Presently, does not appear to be infected, is having some drainage and is fairly deep. Will ask wound care to evaluate. (9) Chronic pain Current Visit: Yes Comment: Continue home Oxy IR (10) DVT prophylaxis Current Visit: No Comment: HSQ
[2016-05-16] MEDS: Fluorometholone 0.1% OPTH.SUS* 5 ML BTL LEFT EYE SCH (14:37)
[2016-05-16] MEDS: CMCS: Simvastatin TAB(NF) 10 MG TAB PO SCH (20:14)
[2016-05-16] MEDS: Pramipexole TAB* 0.125 MG PO SCH (20:14)
[2016-05-17] MEDS: Heparin VIAL(*) 5000 UNITS/ML VIAL (FIVE THOUSAND) SUBCUT SCH ×3 (05:37→20:10)
[2016-05-17] MEDS: Levothyroxine TAB* 100 MCG TAB PO SCH (05:37)
[2016-05-17] MEDS: oxyCODONE TAB* 5 MG TAB PO PRN ×3 (05:40→20:11)
[2016-05-17 05:54] LABS: Hematocrit 25 % (42-52); Hemoglobin 8.3 g/dl (14.0-18.0); Mean Corpuscular HGB Conc 34 g/dl (31-36); Mean Corpuscular Hemoglobin 30 pg (27-31); Mean Corpuscular Volume 90 fL (80-94); Mean Platelet Volume 8 um3 (7.4-10.4); Red Blood Count 2.77 10^6/ul (4.0-5.4); Red Cell Distribution Width 13 % (10.5-15); White Blood Count 10.9 10^3/ul (3.5-10.8)
[2016-05-17 06:04] LABS: BUN/Creatinine Ratio 22.4 (8-20); Calcium 7.7 mg/dL (8.6-10.3); EGFR African American 32.2 (>60); EGFR Non-African American 25.1 (>60); Potassium 3.8 mmol/L (3.5-5.0)
[2016-05-17] MEDS: Terazosin CAP* 5 MG PO SCH (10:11)
[2016-05-17] MEDS: Aspirin EC Low Dose* 81 MG TAB.EC PO SCH (10:11)
[2016-05-17] MEDS: Fluorometholone 0.1% OPTH.SUS* 5 ML BTL LEFT EYE SCH (10:11)
[2016-05-17] MEDS: Polyethylene Glycol 3350* 17 GM PACKET PO SCH ×2 (10:11→19:45)
[2016-05-17] MEDS: predniSONE TAB* 20 MG PO SCH (10:11)
[2016-05-17] MEDS: Multivitamins/Minerals TAB PO SCH (10:11)
--- NOTE | 2016-05-17 14:54 | PN ---
Subjective Date of Service: 05/17/16 Interval History: Pt is a poor historian, denies abd pain. As per d/w RN, pt has had multiple loose very small BM's in the past 24H Family History: Unchanged from Admission Social History: Unchanged from Admission Past Medical History: Unchanged from Admission Objective Active Medications: Acetaminophen (Tylenol Supp*) 650 mg MT Q6H PRN PRN Reason: FEVER/PAIN Last Admin: 05/15/16 00:21 Dose: 650 mg Acetaminophen (Tylenol Tab*) 650 mg PO Q4H PRN PRN Reason: TEMP > 100 or PAIN Last Admin: 05/15/16 15:21 Dose: 650 mg Aspirin (Aspirin Ec Low Dose*) 81 mg PO DAILY [facility] Last Admin: 05/17/16 10:11 Dose: 81 mg Clonazepam (Klonopin Tab(*)) 0.5 mg PO BEDTIME PRN PRN Reason: RESTLESSNESS Fluorometholone Acetate (Fml 0.1% Opth.Susp*) 1 drop LEFT EYE DAILY [facility] Last Admin: 05/17/16 10:11 Dose: 1 drop Heparin Sodium (Porcine) (Heparin Vial(*)) 5,000 units SUBCUT Q8HR [facility] Last Admin: 05/17/16 14:08 Dose: 5,000 units Levothyroxine Sodium (Synthroid Tab*) 100 mcg PO DAILY@0600 [facility] Last Admin: 05/17/16 05:37 Dose: 100 mcg Multivitamins/Minerals (Theragran/Minerals Tab*) 1 tab PO DAILY [facility] Last Admin: 05/17/16 10:11 Dose: 1 tab Oxycodone HCl (Roxycodone Tab*) 5 mg PO Q4H PRN PRN Reason: PAIN - MILD TO MODERATE Oxycodone HCl (Roxycodone Tab*) 10 mg PO Q4H PRN PRN Reason: PAIN - SEVERE Last Admin: 05/17/16 14:08 Dose: 10 mg Polyethylene Glycol/Electrolytes (Miralax*) 17 gm PO 0800,2100 [facility] Pramipexole Dihydrochloride (Mirapex Tab*) 0.25 mg PO BEDTIME [facility] Last Admin: 05/16/16 20:14 Dose: 0.25 mg Prednisone (Deltasone Tab*) 20 mg PO DAILY [facility] Simethicone (Mylicon*) 80 mg PO AC [facility] Simvastatin (Zocor(Nf)) 10 mg PO BEDTIME [facility] Last Admin: 05/16/16 20:14 Dose: 10 mg Terazosin HCl (Hytrin Cap*) 5 mg PO DAILY [facility] Last Admin: 05/17/16 10:11 Dose: 5 mg Vital Signs 05/16/16 05/16/16 05/16/16 15:13 15:24 17:15 Temperature 97.8 F Pulse Rate 77 Respiratory 16 14 20 Rate Blood Pressure 149/56 (mmHg) O2 Sat by Pulse 97 Oximetry 05/16/16 05/16/16 05/16/16 19:15 20:00 20:43 Temperature 98.1 F Pulse Rate 71 Respiratory 16 16 16 Rate Blood Pressure 143/55 (mmHg) O2 Sat by Pulse 97 Oximetry 05/16/16 05/16/16 05/16/16 21:58 23:29 23:58 Temperature 98.7 F Pulse Rate 74 Respiratory 18 18 16 Rate Blood Pressure 143/65 (mmHg) O2 Sat by Pulse 96 Oximetry 05/17/16 05/17/16 05/17/16 03:26 05:40 07:21 Temperature 99.2 F 97.6 F Pulse Rate 70 81 Respiratory 16 16 16 Rate Blood Pressure 158/58 157/58 (mmHg) O2 Sat by Pulse 98 95 Oximetry 05/17/16 05/17/16 08:00 14:08 Temperature Pulse Rate Respiratory 16 16 Rate Blood Pressure (mmHg) O2 Sat by Pulse Oximetry Oxygen Devices in Use Now: None Appearance: 85 yo M in NAd, AAOx2, poor historian Eyes: No Scleral Icterus, PERRLA Ears/Nose/Mouth/Throat: NL Teeth, Lips, Gums, Mucous Membranes Moist Neck: NL Appearance and Movements; NL JVP, Trachea Midline Respiratory: Symmetrical Chest Expansion and Respiratory Effort, Clear to Auscultation Cardiovascular: NL Sounds; No Murmurs; No JVD, RRR Abdominal: - - distended, tympanic, soft, NT, BS+ Lymphatic: No Cervical Adenopathy Extremities: No Clubbing, Cyanosis Skin: No Nodules or Sclerosis, - - lumbar back incisional wounds: one horizontal at 5 cm and one perpendicular at 5 cm. wounds deep at 1-2 cm , no drainage noted. stage 1 -2 decubitus on sacrum Neurological: - - b/l LEs' weakness at 4+/5-unable to raise them off bed. Result Diagrams: 05/17/16 05:19 05/17/16 05:19 Additional Lab and Data: Lab Results 05/14/16 05/14/16 05/14/16 Range/Units 13:01 13:40 13:40 WBC 14.6 H (3.5-10.8) 10^3/ul RBC 3.28 L (4.0-5.4) 10^6/ul Hgb 9.7 L (14.0-18.0) g/dl Hct 30 L (42-52) % MCV 91 (80-94) fL MCH 30 (27-31) pg MCHC 32 (31-36) g/dl RDW 13 (10.5-15) % Plt Count 296 (150-450) 10^3/ul MPV 9 (7.4-10.4) um3 Neut % (Auto) 83.6 H (38-83) % Lymph % (Auto) 7.8 L (25-47) % Johnson % (Auto) 7.0 (1-9) % Eos % (Auto) 1.3 (0-6) % Baso % (Auto) 0.3 (0-2) % Absolute Neuts (auto) 12.2 H (1.5-7.7) 10^3/ul Absolute Lymphs (auto) 1.1 (1.0-4.8) 10^3/ul Absolute Monos (auto) 1.0 H (0-0.8) 10^3/ul Absolute Eos (auto) 0.2 (0-0.6) 10^3/ul Absolute Basos (auto) 0 (0-0.2) 10^3/ul Absolute Nucleated RBC 0.01 10^3/ul Nucleated RBC % 0 INR (Anticoag Therapy) (0.89-1.11) APTT (26.0-36.3) seconds Sodium 134 (133-145) mmol/L Potassium 4.0 (3.5-5.0) mmol/L Chloride 106 (101-111) mmol/L Carbon Dioxide 21 L (22-32) mmol/L Anion Gap 7 (2-11) mmol/L BUN 51 H (6-24) mg/dL Creatinine 2.76 H (0.67-1.17) mg/dL Est GFR ( Amer) 28.2 (>60) Est GFR (Non-Af Amer) 22.0 (>60) BUN/Creatinine Ratio 18.5 (8-20) Glucose 198 H (70-100) mg/dL Lactic Acid (0.5-2.0) mmol/L Calcium 8.1 L (8.6-10.3) mg/dL Magnesium 2.1 (1.9-2.7) mg/dL Total Bilirubin 0.30 (0.2-1.0) mg/dL AST 18 (13-39) U/L ALT 27 (7-52) U/L Alkaline Phosphatase 146 H (34-104) U/L Ammonia (16-53) mol/L Troponin I 0.05 H* (<0.04) ng/mL C-Reactive Protein 253.09 H (< 5.00) mg/L B-Natriuretic Peptide ( - 100) pg/mL Total Protein 5.2 L (6.4-8.9) g/dL Albumin 2.0 L (3.2-5.2) g/dL Globulin 3.2 (2-4) g/dL Albumin/Globulin Ratio 0.6 L (1-3) Amylase 18 L (29-103) U/L Lipase 23 (11.0-82.0) U/L Urine Color Yellow Urine Appearance Cloudy Urine pH 6.0 (5-9) Ur Specific [place] 1.013 (1.010-1.030) Urine Protein 3+(>=500 mg/dl) H (Negative) Urine Ketones Negative (Negative) Urine Blood Negative (Negative) Urine Nitrate Negative (Negative) Urine Bilirubin Negative (Negative) Urine Urobilinogen Negative (Negative) Ur Leukocyte Esterase 1+ H (Negative) Urine WBC (Auto) 3+(>20/hpf) H (Absent) Urine RBC (Auto) Absent (Absent) Ur Squamous Epith Cells Present H (Absent) Urine Bacteria Absent (Absent) Urine Glucose 1+(50 mg/dl) H (Negative) Urine Ascorbic Acid * H (Negative) 05/14/16 05/14/16 05/14/16 Range/Units 13:40 13:40 13:40 WBC (3.5-10.8) 10^3/ul RBC (4.0-5.4) 10^6/ul Hgb (14.0-18.0) g/dl Hct (42-52) % MCV (80-94) fL MCH (27-31) pg MCHC (31-36) g/dl RDW (10.5-15) % Plt Count (150-450) 10^3/ul MPV (7.4-10.4) um3 Neut % (Auto) (38-83) % Lymph % (Auto) (25-47) % Johnson % (Auto) (1-9) % Eos % (Auto) (0-6) % Baso % (Auto) (0-2) % Absolute Neuts (auto) (1.5-7.7) 10^3/ul Absolute Lymphs (auto) (1.0-4.8) 10^3/ul Absolute Monos (auto) (0-0.8) 10^3/ul Absolute Eos (auto) (0-0.6) 10^3/ul Absolute Basos (auto) (0-0.2) 10^3/ul Absolute Nucleated RBC 10^3/ul Nucleated RBC % INR (Anticoag Therapy) 1.21 H (0.89-1.11) APTT 29.0 (26.0-36.3) seconds Sodium (133-145) mmol/L Potassium (3.5-5.0) mmol/L Chloride (101-111) mmol/L Carbon Dioxide (22-32) mmol/L Anion Gap (2-11) mmol/L BUN (6-24) mg/dL Creatinine (0.67-1.17) mg/dL Est GFR ( Amer) (>60) Est GFR (Non-Af Amer) (>60) BUN/Creatinine Ratio (8-20) Glucose (70-100) mg/dL Lactic Acid 1.6 (0.5-2.0) mmol/L Calcium (8.6-10.3) mg/dL Magnesium (1.9-2.7) mg/dL Total Bilirubin (0.2-1.0) mg/dL AST (13-39) U/L ALT (7-52) U/L Alkaline Phosphatase (34-104) U/L Ammonia 21 (16-53) mol/L Troponin I (<0.04) ng/mL C-Reactive Protein (< 5.00) mg/L B-Natriuretic Peptide 107 H ( - 100) pg/mL Total Protein (6.4-8.9) g/dL Albumin (3.2-5.2) g/dL Globulin (2-4) g/dL Albumin/Globulin Ratio (1-3) Amylase (29-103) U/L Lipase (11.0-82.0) U/L Urine Color Urine Appearance Urine pH (5-9) Ur Specific [place] (1.010-1.030) Urine Protein (Negative) Urine Ketones (Negative) Urine Blood (Negative) Urine Nitrate (Negative) Urine Bilirubin (Negative) Urine Urobilinogen (Negative) Ur Leukocyte Esterase (Negative) Urine WBC (Auto) (Absent) Urine RBC (Auto) (Absent) Ur Squamous Epith Cells (Absent) Urine Bacteria (Absent) Urine Glucose (Negative) Urine Ascorbic Acid (Negative) Microbiology and Other Data: Microbiology 05/14/16 16:10 Nasal Screen MRSA (PCR)(ANDRE) - Final Nasal Mrsa Negative Assess/Plan/Problems-Billing Assessment: Sigmoid volvulus s/p decompression, gout flare in an 85 yo M with hx of HTN, PAD , CKD, HLD, hypothyroidism, urinary retention, chronic pain and recent placement and removal of spinal stimulator - Patient Problems (1) Sigmoid volvulus Current Visit: Yes Status: Acute Comment: Appreciate GI assistance. S/P colonic decompression from sigmoidoscopy by Dr. Vaca. Symptoms largely improved although still with some distension and abnormal bowel sounds, however patient denies pain. cont miralax Leukocytosis resolved. No growth on cultures. (2) Gout attack Comment: In left hand and wrist-symptoms resolved, joints with no inflammmation noted. will start tapering down Prednisone (3) HTN (hypertension) Comment: will restart nifedipine. holding lisinopril (4) Hypothyroidism Comment: Continue Levothyroxine (5) Wound of back Comment: Reviewed [facility] d/c summary (in patients chart). Received complete course of ABx while in the hospital, did not seem to be deep infection, called cellulitis. MRI did not show any signs of verteberal involvement. Presently, does not appear to be infected. appreciate wound care recommnedation. It would be beneficial if pt could f/w with Wound Care when in [facility] (6) Elevated troponin Comment: Unchanged from admission, no need to trend further (7) RUDY (acute kidney injury) Comment: Renal function improving. Avoid nephrotoxic medications, BMP daily. Baseline creatinine 2. (8) Urinary retention Comment: Continue Ortiz started on 05/02/16 for U retention. D/w Pt a trial of discontinuation, but pt is not interested and requested to keep the Ortiz in. (9) Chronic pain Comment: Continue home Oxy IR (10) Normocytic anemia Comment: chronic with worsening. due to CKD stage 3 and recent hospital stay (11) DVT prophylaxis Comment: HSQ Status and Disposition: inpatient. Most likely back to [facility] tomorrow
[2016-05-17] MEDS ORDERED: Bisacodyl SUPP* 10 MG SUPP PR ONE (16:24)
[2016-05-17] MEDS: Simethicone TAB* 80 MG TAB.CHEW PO SCH (17:11)
[2016-05-17] MEDS: Pramipexole TAB* 0.125 MG PO SCH (20:10)
[2016-05-17] MEDS: CMCS: Simvastatin TAB(NF) 10 MG TAB PO SCH (20:11)
[2016-05-18] MEDS: Heparin VIAL(*) 5000 UNITS/ML VIAL (FIVE THOUSAND) SUBCUT SCH (05:09)
[2016-05-18] MEDS: Levothyroxine TAB* 100 MCG TAB PO SCH (05:09)
[2016-05-18 05:29] LABS: Hematocrit 27 % (42-52); Hemoglobin 8.8 g/dl (14.0-18.0); Mean Corpuscular HGB Conc 33 g/dl (31-36); Mean Corpuscular Hemoglobin 30 pg (27-31); Mean Corpuscular Volume 90 fL (80-94); Mean Platelet Volume 8 um3 (7.4-10.4); Red Blood Count 2.97 10^6/ul (4.0-5.4); Red Cell Distribution Width 13 % (10.5-15); White Blood Count 8.8 10^3/ul (3.5-10.8)
[2016-05-18] MEDS: Simethicone TAB* 80 MG TAB.CHEW PO SCH ×2 (07:29→11:11)
[2016-05-18 07:40] VITALS: BP 157/73
[2016-05-18] MEDS: Aspirin EC Low Dose* 81 MG TAB.EC PO SCH (08:29)
[2016-05-18] MEDS: Fluorometholone 0.1% OPTH.SUS* 5 ML BTL LEFT EYE SCH (08:29)
[2016-05-18] MEDS: Multivitamins/Minerals TAB PO SCH (08:29)
[2016-05-18] MEDS: Polyethylene Glycol 3350* 17 GM PACKET PO SCH (08:29)
[2016-05-18] MEDS: Terazosin CAP* 5 MG PO SCH (08:29)
[2016-05-18] MEDS ORDERED: predniSONE TAB* 20 MG PO SCH (09:00)
[2016-05-18] MEDS ORDERED: NIFEdipine ER TAB* 30 MG PO SCH (09:00)
--- NOTE | 2016-05-18 10:30 | RAD ---
HISTORY: Follow-up volvulus COMPARISONS: CT dated May 14, 2016 VIEWS: Frontal supine and left lateral view disease of the abdomen. FINDINGS: BOWEL: There is a nonspecific bowel gas pattern, with nondilated small bowel gas noted. Again noted is distention and dilatation of the cecum and ascending colon. This is similar to the previous CT examination. CALCULI: There are no abnormal calculi. BONES AND SOFT TISSUES: Degenerative changes are noted of the spine. There is peripheral arterial calcification. OTHER FINDINGS: The lung bases are clear. There is no subphrenic gas. IMPRESSION: AGAIN NOTED IS DISTENTION AND DILATATION OF THE CECUM AND DESCENDING COLON, SIMILAR TO THE PREVIOUS CT EXAMINATION. THERE IS NO SUBPHRENIC GAS.
[2016-05-18] MEDS: oxyCODONE TAB* 5 MG TAB PO PRN (10:45)
[2016-05-18] MEDS ORDERED: Bisacodyl SUPP* 10 MG SUPP PR ONE (11:10)
--- NOTE | 2016-05-18 13:12 | DS ---
DATE OF ADMISSION: 05/14/2016 DATE OF DISCHARGE/TRANSFER TO [facility]: 05/18/2016 PRIMARY CARE PROVIDER: Dr. Dallas DISCHARGE DIAGNOSES: 1. Acute sigmoid volvulus status post decompression by Dr. Vaca on 05/14/16. 2. Worsening and acute kidney failure on top of chronic kidney disease Stage 3. 3. Gout attack affecting the left hand and left wrist. 4. Chronic wound on back. 5. Troponin elevation of 0.05 most likely due to demand ischemia and renal insufficiency. 6. Worsening of chronic normocytic anemia. MEDICATIONS AT DISCHARGE: Include: 1. Acetaminophen 650 mg on a p.r.n. basis. 2. Aspirin 81 mg daily. 3. Dulcolax suppository 10 mg daily to administer on days when patient did not have bowel movement. 4. Fluorometholone ophthalmic solution 0.1% one drop to left eye daily. 5. Synthroid 100 micrograms daily. 6. Multivitamin 1 tablet daily. 7. Procardia XL 30 mg daily. 8. MiraLax 17 g daily. 9. Mirapex 0.25 mg at bedtime. 10. Simethicone 80 mg with each meal. 11. Simvastatin 10 mg daily. 12. Hytrin terazosin 5 mg daily. 13. Clonazepam 0.5 mg at bedtime. 14. Roxicodone 10 mg every 4 hours p.r.n. for moderate pain and 5 mg every 4 hours p.r.n. pain. 15. Prednisone 10 mg daily with the last day of administration being 05/19/16. CONSULTATIONS DURING HOSPITAL STAY: Included: 1. Dr. Vaca from Gastroenterology. 2. Patient also had wound care consult from our [facility]. PROCEDURES: Sigmoidoscopy with decompression of the colon and sigmoid volvulus. LABORATORY DATA: 1. On 05/18/16 showed white blood cell count of 80, hemoglobin of 8.8, hematocrit of 27 and platelet count of 87. 2. Sodium 135, potassium 2.8, chloride 111, carbon dioxide 19, BUN 55, creatinine 2.46. 3. Urinalysis on 05/14/16 showed white blood cells +3, absent bacteria. 4. Blood cultures obtained on 05/14/16 were negative to date. At discharge patient is to continue with physical therapy as tolerated. Wound care to incisions on back. Gently pack with gauze and saline. Santyl covered with Vaseline gauze. ABD pads and used Hypafix tape daily. Patient is also recommended to followup with our [facility]ound Care [facility] on at least a weekly basis unless further recommended by our [facility] at [facility]. HOSPITALIZATION COURSE: Quintin Joy is an 85-year-old who is currently at [facility]. He was hospitalized at [facility] from to 05/11/16 for infection of the pocket after a spinal stimulator placed in his lumbar area, removal of the infected stimulator, and cellulitis of the area. Patient was treated with antibiotics during that time. He was left with generalized deconditioning, ambulatory dysfunction and open wounds of his back. He was discharged to [facility] on 05/11/16. He apparently had been constipated and on 05/14/16 presented to our hospital with abdominal pain and confusion. He was noted to have sigmoid volvulus that was decompressed by Dr. Vaca on 05/14/16. He did well post procedure and he had bowel movement afterwards. He did have some worsening of his chronic kidney disease Stage 3 with creatinine of 2.7 at its peak that is slowly resolving at the time of discharge. Due to increase in creatinine his lisinopril was held and patient was continued on Procardia only There was no evidence of infection though that we could identify. His blood cultures were negative. His urinalysis here yielded no bacteria. His back wounds were evaluated by Wound Care Center and recommended dressings as above. It was also recommended for the patient to come over to Wound Care Center for at least weekly wound inspection for further recommendations. Unfortunately patient still continues to have a significant amount of gas in his colon on repeat x-ray prior to discharge. Nevertheless he had daily bowel movement since his decompression and he is doing okay without abdominal pain. He was placed on simethicone for extensive colonic gas. He was also placed on MiraLax to continue on a scheduled basis and Dulcolax suppository to be used if patient does not have a bowel movement on a particular day. As per discussion with patient's supervisor paper machine in the hospital who felt patient's sigmoid volvulus can recur and if continues to recur patient may require surgery in the future. Patient has a Ortiz catheter in place that was originally placed on 04/23/16 at our facility when he was noted to have urinary retention. We discussed with the patient and patient's daughter continuation of Ortiz catheter in a trial off Ortiz. Patient wished not to discontinue the Ortiz catheter especially that he has open wounds on his back that could get soiled easily. At this point the Ortiz is to be continued until patient can see a urologist as outpatient. Patient is being transferred to [facility] with a Ortiz catheter in place on 05/18/16 for further treatment. PHYSICAL EXAM AT TIME OF DISCHARGE: Blood pressure 140/71. Heart rate of 78 and regular. Respiratory rate 16. Saturation 97% on room air. Temperature 98.1. This is a very pleasant 85-year-old male who is in no acute distress. Alert, awake and oriented x3. He has poor short term memory. HEENT: Head atraumatic, normocephalic. Eyes: Pupils are equal and reactive to light and accommodation. Oropharynx clear. Mucosa moist. Neck: Supple. No JVD. No bruit bilaterally. Cardiovascular: Regular rate and rhythm. No murmur. Respiratory: Clear to auscultation bilaterally. Abdomen: Soft, slightly distended, tympanic to percussion. Nontender. Bowel sounds are present in all 4 quadrants. Extremities : There is trace bilateral ankle edema. +2 pulses bilaterally. No clubbing or cyanosis. Musculoskeletal/Joints: Patient has severe osteoarthritic changes in right knee. His gout attack on the left wrist resolved with prednisone during the hospital stay. Skin: patient has 2 incisions in the right flank area. These incisions are 5 cm each in the shape of the letter L. They are approximately 1 to 2 cm deep and the wounds are healing by secondary intent. The edges are clear and there is no evidence of infection or discharge. On evaluation of the patient's sacrum he has stage 1 to 2 decubitus on his sacrum. The area is approximately 10 x 5 diabetes mellitus. Neuro: Patient has bilateral lower extremity weakness at 4+/5. That is symmetrical and consistent with prior reports. Otherwise cranial nerves II through XII intact. Motor strength is 5/5 bilaterally in upper extremities. Speech is clear. Please also note that during patient's hospital stay patient was noted to have acute gouty attack on his left hand and left wrist. He was treated with prednisone taper with good result. His symptoms resolved by the time of discharge and he is going to be tapered off prednisone over the next couple of days as an outpatient. Please note this is a short summary of patient's hospitalization. Please refer to further medical records for details. Approximately 50 minutes was spent on the patient's discharge. CC: Dr. Dallas; [facility] * [id number]/CPS #: [id number] MTDAdry
== END 2016-05-18 14:20 | DRG 345 ==
LOC: ED 13:11 → MEDTELE 15:43
PROVIDERS: ADMIT Internal Medicine; ATTEND Internal Medicine
PROC: 0D9N8ZZ Drainage of Sigmoid Colon, Via Natural or Artificial Opening Endoscopic (ICD-10-PCS; principal; 2016-05-14)
DX: K56.2 Volvulus (principal); N17.9 Acute kidney failure, unspecified; L89.152 Pressure ulcer of sacral region, stage 2; D63.1 Anemia in chronic kidney disease; N18.3 Chronic kidney disease, stage 3 (moderate); D64.9 Anemia, unspecified; I12.9 Hypertensive chronic kidney disease with stage 1 through stage 4 chronic kidney disease, or unspecified chronic kidney disease; M10.042 Idiopathic gout, left hand; R74.8 Abnormal levels of other serum enzymes; E03.9 Hypothyroidism, unspecified; I73.9 Peripheral vascular disease, unspecified; E78.5 Hyperlipidemia, unspecified; R33.9 Retention of urine, unspecified; Z88.2 Allergy status to sulfonamides; Z88.8 Allergy status to other drugs, medicaments and biological substances; Z83.3 Family history of diabetes mellitus; Z80.9 Family history of malignant neoplasm, unspecified; Z82.49 Family history of ischemic heart disease and other diseases of the circulatory system; Z87.891 Personal history of nicotine dependence
CPT/HCPCS: 36415; 74020; 74176; 80048; 80053; 81003; 81015; 82140; 82150; 82550; 82553; 83605; 83690; 83735; 83880; 84145; 84484; 84550; 85025; 85610; 85730; 86140; 87040; 87086; 87641; 93005; A9270-GY; J0696; J1644; J2250; J2270; J2543; J3010; J7512

== ENCOUNTER 2016-06-23 15:32 | Inpatient (IN) | payer MEDICARE, BC ==
--- NOTE | 2016-06-23 16:44 | ED ---
Complex/Multi-Sys Presentation - HPI Summary HPI Summary: [facility] - here w/ acute on chronic anemia and requiring blood transfusion. Per his paperwork from [facility], HGB was 9.7 on 05/14/2016 w/ what appears to be Fe def anemia. He had been taking ferrous sulfate w/ CBC monitoring - lab on 06/22/2016 reveals HGB 6. He was not a good candidate for EGD/colonoscopy in May 2015. Has denied previous transfusion but is open to this today due to his symptoms. Note indicates he has CKD however provider does not believe this is the source and would like w/u to ID source. Of note, pt also has a chronic healing heel ulcer/infection, sigmoid volvulous for which he was admitted in 05/2016, Lt sided nephrectomy, and chronic back pain. He also reports RLS - tried meds but made him too sleepy. Today he feels tired, short of breath and is having difficulty drinking due to effort required. Feels that he bruises easily but denies estevan epistaxis, hematuria (has a catheter), hematochezia, bleeding gums. Reports he has difficulty moving his bowels however did have a good BM this morning. Denies use of anti-coagulants and is unsure of meds he takes (see med list). Has reduced appetite but no abdominal pain. Does feel his abdomen is distended but denies increased gas above or below. Denies recent illness/URI. - History Of Current Complaint Chief Complaint: EDGeneral Time Seen by Provider: 06/23/16 16:26 Hx Obtained From: Patient - Allergies/Home Medications Allergies/Adverse Reactions: Allergies Allergy/AdvReac Type Severity Reaction Status Date / Time Sulfa Drugs Allergy Rash Verified 07/02/15 19:08 Home Medications: Home Medications Fluconazole 150 MG (NF) [Diflucan 150 mg (NF)] 150 mg PO Q7D 06/23/16 [History Confirmed 06/23/16] Oseltamivir CAP* [Tamiflu CAP*] 30 mg PO EVERY OTHER DAY 06/23/16 [History Confirmed 06/23/16] PMH/Surg Hx/FS Hx/Imm Hx Previously Healthy: Yes Endocrine/Hematology History: Reports: Hx Blood Disorders - chronic anemia, Hx Diabetes - DIET CONTROLLED, Hx Thyroid Disease - hypothyroid disease Denies: Hx Anticoagulant Therapy, Hx Unexplained Bleeding Cardiovascular History: Reports: Hx Aneurysm - abdominal 3.[address] in 05/2016 , Hx Coronary Artery Disease, Hx Hypertension Respiratory History: Denies: Hx Asthma, Hx Chronic Obstructive Pulmonary Disease (COPD), Hx Lung Cancer GI History: Reports: Other GI Disorders - sigmoid volvulous 05/2016 Denies: Hx Gall Bladder Disease, Hx Gastrointestinal Bleed, Hx Ulcer, Hx Urosepsis History: Reports: Hx Benign Prostatic Hyperplasia, Other Problems/ Disorders - Chronic kidney disease, left kidney removed Denies: Hx Kidney Stones, Hx Renal Disease - He has only his right kidney. The left one was taken out due to infection Musculoskeletal History: Reports: Hx Arthritis, Hx Back Problems - chronic, Other Musculoskeletal History - RLS? Sensory History: Reports: Hx Cataracts - cataracts removed, Hx Contacts or Glasses - glasses, Hx Hearing Problem Denies: Hx Hearing Aid Opthamlomology History: Reports: Hx Cataracts - cataracts removed, Hx Contacts or Glasses - glasses Neurological History: Denies: Hx Dementia, Hx Migraine, Hx Seizures, Hx Transient Ischemic Attacks (TIA) Comment Only: Other Neuro Impairments/Disorders - SPINAL STIMULATOR Psychiatric History: Denies: Hx Anxiety, Hx Depression, Hx Schizophrenia, Hx Bipolar Disorder - Surgical History Surgery Procedure, Year, and Place: back surgery feb 2009- right leg issues - drop foot. LEFT NEPHRECTOMY 1951. Cataracts removed Infectious Disease History: No Infectious Disease History: Reports: Hx Shingles - Got into eye Denies: Hx Clostridium Difficile, Hx Hepatitis, Hx Human Immunodeficiency Virus (HIV), Hx of Known/Suspected MRSA, History Other Infectious Disease, Traveled Outside the [place] in Last 30 Days - Family History Known Family History: Positive: Hypertension, Diabetes - Social History Occupation: Retired Lives: [facility] Alcohol Use: None Alcohol Amount: used to drink ETOH - not now Hx Substance Use: No Substance Use Type: Reports: None Hx Tobacco Use: Yes - not currently Smoking Status (MU): Former Smoker Review of Systems Positive: Fatigue. Negative: Fever, Chills Negative: Photophobia, Blurred Vision ENT: Negative Negative: Chest Pain Positive: Shortness Of Breath. Negative: Cough Gastrointestinal: Other - decreased appetite - see HPI Negative: Abdominal Pain, Vomiting, Diarrhea, Nausea Genitourinary: Negative Positive: see HPI Musculoskeletal: Negative Skin: Other - see HPI Neurological: Negative Psychological: Normal All Other Systems Reviewed And Are Negative: Yes Physical Exam Triage Information Reviewed: Yes Vital Signs On Initial Exam: Initial Vitals Temp Pulse Resp BP Pulse Ox 98.5 F 92 16 105/50 100 06/23/16 15:54 06/23/16 15:54 06/23/16 15:54 06/23/16 15:54 06/23/16 15:54 Vital Signs Reviewed: Yes Appearance: Positive: No Pain Distress, Thin - appears mostly comfortable lying in stretcher - mild shortness of breath - thin w/ generalized pallor Skin: Positive: Warm, Dry - scant areas of macular ecchymosis over Rt UE - no gross bruising observed over torso or LE Head/Face: Positive: Normal Head/Face Inspection Eyes: Positive: EOMI, MIGUEL, Conjunctiva Clear - pallor - anicteric sclera ENT: Positive: Hearing grossly normal, Pharynx normal. Negative: Nasal congestion, Nasal drainage Neck: Positive: Supple, Nontender Respiratory/Lung Sounds: Positive: Clear to Auscultation, Breath Sounds Present Cardiovascular: Positive: Normal, RRR, Leg Edema Left - +1 pitting edema, Leg Edema Right - +1 pitting, S1, S2. Negative: Murmur, Rub Abdomen Description: Positive: Distended - gross distention; Rt side larger than Lt Bowel Sounds: Positive: Present Musculoskeletal: Positive: Strength/ROM Intact - UE's moving well and w/o restriction, Limited @ - LE's movement limited d/t pain Neurological: Positive: Alert, Oriented to Person Place, Time Psychiatric: Positive: Normal - pleasant, organized thoughts - answers questions clearly Diagnostics - Vital Signs Vital Signs Temp Pulse Resp BP Pulse Ox 06/23/16 16:28 98.5 F 98 16 105/50 100 06/23/16 16:15 94 12 105/50 100 06/23/16 16:13 96 23 100 06/23/16 16:12 93/48 06/23/16 15:54 98.5 F 92 16 105/50 100 - Laboratory Result Diagrams: 06/23/16 16:15 06/23/16 16:15 Lab Statement: Any lab studies that have been ordered have been reviewed, and results considered in the medical decision making process. Complex Multi-Symp Course/Dx Course Of Treatment: Acute on chronic anemia. Pt is symptomatic today and [facility]. He has CKD, chronic pain/wound healing issues and recent sigmoid volvulous repair. His vital signs are stable. Gentle IVF and blood transfusion ordered in ED. Admitted to hospital service for monitoring and further investigation of ab distention w/ reduced appetite in the face of recent volvulous. Discussed w/ Dr. Rahman and Arjun Nathan NP. - Diagnoses Provider Diagnoses: Anemia, unspecified Discharge - Discharge Plan Condition: Stable Disposition: ADMITTED TO [facility]
[2016-06-23 17:24] LABS: Hematocrit 22 % (42-52); Hemoglobin 7.1 g/dl (14.0-18.0); Mean Corpuscular HGB Conc 32 g/dl (31-36); Mean Corpuscular Hemoglobin 28 pg (27-31); Mean Corpuscular Volume 88 fL (80-94); Mean Platelet Volume 9 um3 (7.4-10.4); Red Blood Count 2.55 10^6/ul (4.0-5.4); Red Cell Distribution Width 15 % (10.5-15)
[2016-06-23 17:35] LABS: ALT 53 U/L (7-52); AST 51 U/L (13-39); Albumin 2.2 g/dL (3.2-5.2); Alkaline Phosphatase 296 U/L (34-104); Anion Gap 7 mmol/L (2-11); BUN/Creatinine Ratio 19.5 (8-20); Blood Urea Nitrogen 89 mg/dL (6-24); CO2 Carbon Dioxide 18 mmol/L (22-32); Calcium 8.4 mg/dL (8.6-10.3); Chloride 109 mmol/L (101-111); EGFR African American 15.8 (>60); EGFR Non-African American 12.3 (>60); Globulin 3.5 g/dL (2-4); Glucose 108 mg/dL (70-100); Potassium 3.9 mmol/L (3.5-5.0); Sodium 134 mmol/L (133-145); Total Protein 5.7 g/dL (6.4-8.9)
[2016-06-23] MEDS ORDERED: NS 0.9% 1000 ML* 1,000 ML IV SCH ×3 (17:45→18:00)
[2016-06-23] MEDS ORDERED: NS 0.9% 1000 ML* 1,000 ML IV ONE (17:55)
[2016-06-23] MEDS ORDERED: clonazePAM TAB(*) 0.5 MG PO PRN (18:00)
[2016-06-23 18:18] LABS: Immature Retic Fraction 0.46
[2016-06-23 18:21] LABS: Corrected Retic Count 0.7 % (0.5-1.5)
[2016-06-23 18:28] LABS: C Reactive Protein 110.33 mg/L (< 5.00); Iron < 15 ug/dL (50-212); Total Iron Binding Capacity 143 mcg/dL (250-450); Transferrin 102 mg/dL (203-362)
[2016-06-23] MEDS ORDERED: Vancomycin(*) 1,000 MG in NS 0.9% 250 ML* 250 ML IVPB ONE ×2 (18:30→20:00)
[2016-06-23] MEDS ORDERED: Vancomycin per Pharmacy* NOTE FOLLOW UP PRN (18:47)
--- NOTE | 2016-06-23 18:47 | RAD ---
Indication: Diabetic wound in the left heel. 3 views of left calcaneus demonstrates no evidence of osteopenia. No lytic lesions identified. No evidence of subcutaneous air is noted. IMPRESSION: The left calcaneus is unremarkable.
[2016-06-23 18:51] LABS: Folate > 20.00 ng/mL (>3.99)
[2016-06-23 18:52] LABS: Vitamin B12 904 pg/mL (180-914)
[2016-06-23] MEDS: oxyCODONE TAB* 5 MG TAB PO PRN (18:59)
[2016-06-23] MEDS: Cefepime(*) 0.5 GM in NS 0.9% 50 ML* 50 ML IVPB SCH (18:59)
[2016-06-23 19:22] LABS: Erythrocyte Sed Rate 80 mm/Hr (0-40)
--- NOTE | 2016-06-23 20:30 | RAD ---
Indication: Abdominal distention, history of volvulus. CT of the abdomen and pelvis was performed without IV contrast. Oral contrast was administered. Coronal and sagittal reconstructed images were obtained. Lung bases demonstrate loculated left pleural effusions with bibasilar atelectasis. Heart is of normal size without evidence of pericardial effusion. Liver is normal in size. There are no focal lesions or intrahepatic ductal dilatation noted. The gallbladder demonstrates no calcified gallstones. No pericholecystic fluid or wall thickening is noted. The spleen demonstrates multiple calcified granulomas. Pancreas demonstrates no mass effect or ductal dilatation. The common duct is not dilated. No adrenal masses are noted. The patient status post left nephrectomy. The right kidney demonstrates fullness of the right renal collecting system. Likely cortical cyst is noted in the right kidney. Atherosclerotic aorta is noted. Ectasia of the abdominal aorta is noted measuring up to 3.5 cm in greatest width. Common and external iliac artery demonstrates atherosclerosis. There is a right-sided inguinal hernia noted containing some fluid. There is marked dilatation of the right colon, transverse colon extending to the splenic flexure. The descending colon is of normal caliber. The sigmoid colon demonstrates some mild distention with suggestion of a stricture in the sigmoid colon. Findings are similar to that seen on May 14, 2016. Small bowel demonstrates no evidence of abnormal dilatation. The stomach is collapsed. No pelvic fluid collections are identified. Neurostimulator leads are no longer present. IMPRESSION: PATIENT IS STATUS POST LEFT NEPHRECTOMY. THERE IS A DILATED COLON WITH COLLAPSED DESCENDING COLON. THE SIGMOID COLON DEMONSTRATES SUGGESTION OF A STRICTURE WITH SOME MODERATE DEGREE OF DISTENTION. FLUID IS NOTED IN THE RECTUM. MORALES CATHETER IS IN PLACE WITH AN ENLARGED PROSTATE. FINDINGS ARE SIMILAR TO THAT IDENTIFIED MAY 14 2016. NO EVIDENCE OF RESIDUAL NEUROSTIMULATOR LEADS ARE NOTED.
[2016-06-23] MEDS: Pramipexole TAB* 0.125 MG PO SCH (22:26)
[2016-06-23] MEDS: Atorvastatin* 10 MG TAB PO SCH (22:27)
--- NOTE | 2016-06-24 02:47 | HP ---
CC: Dr. Gonzalez; Dr. Flores HISTORY AND PHYSICAL: DATE OF ADMISSION: 06/23/16 PRIMARY CARE PROVIDER: Dr. Gonzalez. ATTENDING PHYSICIAN WHILE IN THE HOSPITAL: Dr. Luis M Wilburn *(report dictated by Ruslan Nathan NP). CHIEF COMPLAINT: Abnormal lab data. HISTORY OF PRESENT ILLNESS: Mr. Joy is an 85-year-old male patient with a very unfortunate recent medical course. He recently was here with a sigmoid volvulus. It was decompressed by GI. He also has a history of CKD stage 3, gout , anemia, hypothyroidism, hypertension, hyperlipidemia, and peripheral arterial disease. He also recently had a prolonged antibiotic course for an infected spinal stimulator. He states that he was on antibiotics for sometime and he has been in [facility] since then. He says that over the last couple of weeks, he has noted increasing fatigue. He says his stools have been dark and he says he has been having just increasing tiredness and feeling more short of breath, but he denies any black stools and denies having any coffee-ground emesis or vomiting blood. He says he has just been feeling very fatigued and has not been feeling well and it has noticed that he has been having more shortness of breath and more exercise fatigue, but no chest pain and there has been no reported fevers. He also does state that he has a wound to his left heel, which seems to him has been more painful and getting worse. In addition to this, he has got several wounds in his sacrum and his lower back. The patient came to have labs drawn. It was noted that his hemoglobin was 6.9. It is noted that his hemoglobin has been slowly trending down. Because of this, he was sent to the hospital for evaluation. He comes again today because he had symptomatic anemia. We were asked to evaluate for admission. PAST MEDICAL HISTORY: Significant for: 1. Sigmoid volvulus. 2. Chronic kidney disease. 3. Gout. 4. Anemia. 5. Hypothyroidism. 6. Hypertension. 7. Hyperlipidemia. 8. Peripheral arterial disease. PAST SURGICAL HISTORY: 1. The patient has had a nephrectomy. 2. Laminectomy. 3. Lower extremity stents. 4. Appendectomy. 5. Removal and placement of a spinal stimulator. HOME MEDICATIONS: Include: 1. Oxycodone 5 mg p.o. every 4 hours as needed. 2. Oxycodone 10 mg p.o. every 4 hours as needed. 3. Clonazepam 0.5 mg p.o. at bedtime as needed. 4. Hytrin 5 mg a day. 5. Zocor 10 mg at bedtime. 6. Mirapex 0.25 mg at bedtime. 7. MiraLAX 17 g p.o. daily. 8. Tamiflu 30 mg p.o. every other day. 9. Nifedipine 30 mg daily. 10. Multivitamin one tablet daily. 11. Synthroid 100 mcg daily. 12. Fluconazole 150 mg p.o. every 7 days. ALLERGIES TO MEDICATIONS: SULFA and PLETAL. FAMILY HISTORY: Mother had OR. Father had cancer. SOCIAL HISTORY: He is a former smoker. He is a former alcoholic. He lives at [facility]. Surrogate decision maker is his . REVIEW OF SYSTEMS: There is no documented fever. He denied having any significant weight change. No double vision. No ear discharge. There is no rhinorrhea. No sore throat. No thyroid enlargement. He denied having any chest pain. There is dyspnea on exertion. There is fatigue. There is no nausea. No vomiting. No dysuria. No frequency. No loss of consciousness. No pruritus and no skin ulcerations. Review of 14 systems completed, all others negative. PHYSICAL EXAMINATION GENERAL: Mr. Joy is an 85-year-old male patient. He is sitting in the ER stretcher. He does not appear to be in any acute distress. VITAL SIGNS: Blood pressure 102/55, pulse 94, respirations 18, O2 sat of 100%, temperature 98.5. We did check while in the room, it was 100.7. HEENT: Head atraumatic, normocephalic. Eyes: EOMs intact. Sclerae anicteric. NECK: Supple. Throat: Oral mucosa appears to be dry. No oropharyngeal erythema. LUNGS: Clear to auscultation. HEART: Sounds S1, S2. Regular rate and rhythm. No murmurs, rubs, or gallops. ABDOMEN: Distended, but it was soft. It was nontender. EXTREMITIES: Pulses were diminished in the lower bases and they were cool. He had +2 pitting edema bilaterally in the pedal area. He is able to move his extremities. RECTAL: Did reveal brown stool. There was no obvious tarry stool or blood per rectum. NEUROLOGICAL: He is awake, alert, and oriented x3. Tongue is midline. Commodities Trader are equal. SKIN: He had multiple wounds. He had 2 wounds to his lumbar spine area from the spinal stimulator removal site, which are healing with secondary intention. There was some purulent discharge noted. He has an unstageable right heel wound, which did have an area of necrosis as well, and he had multiple stage II sacral ulcers. LABORATORY DATA/IMAGING STUDIES: The labs today reveal WBC 7.0, RBC of 2.55, hemoglobin 7.1, hematocrit 22, platelet count 211. The INR was 1.05, the PTT was 26.2. Sodium 134, potassium 3.9, chloride of 109, his bicarb was 18, BUN 89 , his creatinine was 4.56 up from his baseline of 2.5. His glucose 108. Calcium 8.4. Total bilirubin 0.2, AST 51, ALT 53, alkaline phosphatase 292. His albumin was 2.2. Old medical records were reviewed. ASSESSMENT AND PLAN: Mr. Joy is an 85-year-old male patient with multiple medical problems presenting to the ER today with complaints of fatigue and anemia. On evaluation, it was found that he had multiple wounds and he did have a fever. He will be admitted under inpatient status for: 1. Anemia. At this point, etiology is unclear. I am sending off iron studies. In addition to this, sending off B12, folate, retic count, LDH as well. I suspect this is probably anemia of chronic disease. We will get a stool occult as well and continue to follow. I do not think he is actively bleeding, and we will give him a unit of blood. 2. Multiple wounds, particularly the left heel wound. Again, I am concerned that it may be osteomyelitis which may be causing the fever. There is a significant amount of necrosis here. My plan is to go ahead and get an MRI of this. Get ABIs as well. I did put a consult to Dr. Flores to help us with wound care. I have put him on cefepime and vancomycin, and I did order wet-to- dry dressings to the lumbar wounds and Santyl for now to that heel wound, and Mepilex to the sacral wounds. 3. Acute renal failure on chronic kidney disease. Again, I am going to send off a FENa. I am going to get a CT of the abdomen and pelvis to look for any hydronephrosis and we will hydrate him. We will continue to follow and I have held nephrotoxic agents. 4. Gout. Continue medicines as prescribed. 5. History of volvulus. He was distended on exam, but he is nontender. I do think that a CT of the abdomen and pelvis is warranted to make sure he has not had a recurrence of his volvulus. If so, I will touch base with GI for decompression. 6. Hypothyroidism. Continue Synthroid. 7. Hypertension. In the setting of acute illness, we will hold his BP medications. 8. Hyperlipidemia. Continue statin therapy. 9. Peripheral arterial disease. Continue current medical regimen, and we are getting ABIs. 10. Code status. I do see a MOLST in the chart, which was checked off as DNR and that is still his wish now. 11. DVT prophylaxis. He is high risk but because of the concern for possible bleeding with a low H and H, I am holding on heparin. We will go ahead and give him SCDs. 12. Fluids, electrolytes, and nutrition. I will order a regular diet pending a CT of the abdomen and pelvis. TIME SPENT: Time spent on the admission 70 minutes, greater than half the time spent [id number] with the patient obtaining my history and physical; other half the time spent going over the plan of care with the patient and implementing the plan of care. I discussed the plan of care with my attending, Dr. Wilburn; he is in agreement. RUSLAN NATHAN NP CC: Dr. Guzman; Dr. Flores [id number]/[facility] #: [id number] [facility] CENTERAdry
[2016-06-24] MEDS: oxyCODONE TAB* 5 MG TAB PO PRN ×3 (04:35→18:05)
[2016-06-24] MEDS: Levothyroxine TAB* 100 MCG TAB PO SCH (04:56)
[2016-06-24 05:12] LABS: Add Diff/Slide Review? Slide Review Added; Comments Flag Yes; Hematocrit 27 % (42-52); Hemoglobin 8.7 g/dl (14.0-18.0); Mean Corpuscular HGB Conc 33 g/dl (31-36); Mean Corpuscular Hemoglobin 28 pg (27-31); Mean Corpuscular Volume 86 fL (80-94); Mean Platelet Volume 8 um3 (7.4-10.4); Red Blood Count 3.06 10^6/ul (4.0-5.4); Red Cell Distribution Width 15 % (10.5-15); White Blood Count 8.6 10^3/ul (3.5-10.8)
[2016-06-24 05:18] LABS: BUN/Creatinine Ratio 18.5 (8-20); Calcium 8.1 mg/dL (8.6-10.3); Direct Bilirubin 0.1 mg/dL (0.03-0.18); EGFR African American 16.4 (>60); EGFR Non-African American 12.7 (>60); Globulin 3.3 g/dL (2-4); Indirect Bilirubin 0.4 mg/dL (0.3-1.0); Potassium 3.7 mmol/L (3.5-5.0); Total Bilirubin 0.5 mg/dL (0.2-1.0); Total Protein 5.3 g/dL (6.4-8.9)
[2016-06-24] MEDS: Multivitamins/Minerals TAB PO SCH (08:27)
[2016-06-24] MEDS ORDERED: Pneumococcal Vac Polyvalent* 0.5 ML VIAL IM ONE (09:00)
[2016-06-24 09:04] LABS: Urine Bacteria 1+ (Absent); Urine Bilirubin Negative (Negative); Urine Glucose 1+(50 mg/dL) (Negative); Urine Nitrite Negative (Negative)
--- NOTE | 2016-06-24 11:37 | RAD ---
Indication: Infection at the LEFT heel. Diabetic. Question osteomyelitis. Comparison: June 23, 2016 radiographs. Technique: [employer] 1.5 Michelle [id number] with GEM suite. Noncontrast MRI LEFT ankle and foot through the tarsometatarsal joints distally. Report: 1 cm maximum dimension diameter soft tissue ulcer present at the lateral posterior heel with inflammatory change extending to the surface of the calcaneus. There is a thin margin of T2 hyperintense edema within the midline to lateral aspect of the posterior inferior aspect of the calcaneal tuberosity with corresponding decreased normal T1 marrow hyperintensity consistent with early osteomyelitis. Diffuse subcutaneous edema. No loculated soft tissue plane abscess collection evident. No additional foci of osteomyelitis evident throughout the [id number]. Polyarticular degenerative arthropathy most prominent at the tarsometatarsal joints with associated subchondral cystic change. Negative for significant joint effusions. Salazar images saved on the [facility] [place] PACS. IMPRESSION: Contiguous with the lateral heel ulcer there is signal change within the superficial aspect of the calcaneal tuberosity most consistent with osteomyelitis.
[2016-06-24] MEDS ORDERED: Vancomycin Random Level* NOTE FOLLOW UP ONE (12:00)
--- NOTE | 2016-06-24 12:30 | RAD ---
INDICATIONS: Ulceration, gangrene COMPARISONS: None relevant TECHNIQUE: Ankle-brachial indices and Doppler tracings were obtained of the lower extremities bilaterally. FINDINGS: Right: The posterior tibial ankle brachial index is noncompressible. The dorsalis pedis ankle brachial index is noncompressible. The posterior tibial waveform is biphasic. The dorsalis pedis waveform is biphasic. Left: The posterior tibial ankle brachial index is noncompressible. The dorsalis pedis ankle brachial index is noncompressible. The posterior tibial waveform is biphasic. The dorsalis pedis waveform is monophasic. OTHER: None. IMPRESSION: 1. THE VESSELS ARE NONCOMPRESSIBLE SUGGESTIVE OF ARTERIOSCLEROSIS. 2. 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
[2016-06-24] MEDS ORDERED: Vancomycin(*) 1,250 MG in NS 0.9% 250 ML* 250 ML IVPB ONE (14:30)
[2016-06-24] MEDS: Morphine INJ* 2 MG/ML 1 ML SYRINGE IV PRN ×2 (14:38→23:59)
[2016-06-24] MEDS: Collagenase 250 MG/GM OINT* 30 GM TOPICAL SCH (15:32)
[2016-06-24] MEDS: Cefepime(*) 0.5 GM in NS 0.9% 50 ML* 50 ML IVPB SCH (17:59)
--- NOTE | 2016-06-24 18:31 | PN ---
Subjective Date of Service: 06/24/16 Interval History: Pt seen and examined with daughter and son in law present Feels he has more energy since yesterday No abdominal pain, BM this AM, +flatus pain in b/l legs and in left heel Objective Active Medications: Acetaminophen (Tylenol Tab*) 650 mg PO Q4H PRN PRN Reason: FEVER/PAIN Atorvastatin Calcium (Lipitor*) 5 mg PO BEDTIME [facility] Last Admin: 06/23/16 22:27 Dose: Not Given Clonazepam (Klonopin Tab(*)) 0.5 mg PO BEDTIME PRN PRN Reason: RESTLESSNESS Collagenase (Santyl 250 Mg/Gm Oint*) 1 applic TOPICAL DAILY [facility] Last Admin: 06/24/16 15:32 Dose: Not Given Cefepime HCl 0.5 gm/ Sodium (Chloride) 50 mls @ 100 mls/hr IVPB Q24H [facility] Last Admin: 06/24/16 17:59 Dose: 100 mls/hr Levothyroxine Sodium (Synthroid Tab*) 100 mcg PO DAILY@0600 [facility] Last Admin: 06/24/16 04:56 Dose: 100 mcg Morphine Sulfate (Morphine Inj (Syringe)*) 2 mg IV Q4H PRN PRN Reason: PAIN - MILD Last Admin: 06/24/16 14:38 Dose: 2 mg Multivitamins/Minerals (Theragran/Minerals Tab*) 1 tab PO DAILY [facility] Last Admin: 06/24/16 08:27 Dose: 1 tab Oxycodone HCl (Roxycodone Tab*) 5 mg PO Q4H PRN PRN Reason: PAIN - MODERATE Last Admin: 06/24/16 18:05 Dose: 5 mg Pharmacy Consult (Vancomycin Per Pharmacy*) 1 note FOLLOW UP . PRN PRN Reason: PER PROTOCOL Pharmacy Consult (Vancomycin Random Level*) 1 note FOLLOW UP ONCE ONE Stop: 06/25/16 06:01 Polyethylene Glycol/Electrolytes (Miralax*) 17 gm PO DAILY [facility] Pramipexole Dihydrochloride (Mirapex Tab*) 0.25 mg PO BEDTIME [facility] Last Admin: 06/23/16 22:26 Dose: 0.25 mg Vital Signs 06/23/16 06/23/16 06/23/16 18:30 18:45 19:00 Temperature Pulse Rate 37 104 92 Respiratory 22 25 16 Rate Blood Pressure 100/51 105/48 89/51 (mmHg) O2 Sat by Pulse 68 86 100 Oximetry 06/23/16 06/23/16 06/23/16 19:15 19:33 19:52 Temperature 98.2 F Pulse Rate 90 91 87 Respiratory 18 18 15 Rate Blood Pressure 104/48 120/54 104/48 (mmHg) O2 Sat by Pulse 100 99 100 Oximetry 06/23/16 06/23/16 06/23/16 20:00 20:10 23:09 Temperature 99.3 F 98.4 F Pulse Rate 88 86 87 Respiratory 23 21 18 Rate Blood Pressure 95/54 92/51 108/53 (mmHg) O2 Sat by Pulse 100 100 Oximetry 06/23/16 06/24/16 06/24/16 23:52 02:08 04:35 Temperature 98.2 F 98.2 F Pulse Rate 87 84 Respiratory 18 18 20 Rate Blood Pressure 102/52 114/53 (mmHg) O2 Sat by Pulse 100 96 Oximetry 06/24/16 06/24/16 06/24/16 07:21 09:00 10:35 Temperature 97.3 F Pulse Rate 80 Respiratory 16 16 Rate Blood Pressure 108/52 (mmHg) O2 Sat by Pulse 98 98 Oximetry 06/24/16 06/24/16 06/24/16 12:20 13:59 14:38 Temperature Pulse Rate Respiratory 16 18 18 Rate Blood Pressure (mmHg) O2 Sat by Pulse Oximetry 06/24/16 06/24/16 06/24/16 15:16 15:38 18:05 Temperature 98.9 F Pulse Rate 86 Respiratory 18 18 18 Rate Blood Pressure 120/50 (mmHg) O2 Sat by Pulse 97 Oximetry Oxygen Devices in Use Now: None Appearance: lying flat, NAD Eyes: No Scleral Icterus, PERRLA Ears/Nose/Mouth/Throat: Clear Oropharnyx, Mucous Membranes Moist Neck: NL Appearance and Movements; NL JVP, Trachea Midline Respiratory: Symmetrical Chest Expansion and Respiratory Effort, Clear to Auscultation Cardiovascular: RRR Abdominal: - - soft, NTTP, distended, +bs Lymphatic: No Cervical Adenopathy Extremities: No Edema Skin: - - left heel ulceration covered Neurological: Alert and Oriented x 3 Result Diagrams: 06/24/16 04:55 06/24/16 04:56 Microbiology and Other Data: Microbiology 06/23/16 21:51 Transfusion Reaction Culture - Preliminary Blood Bag Culture Under Incubation Transfusion Reaction Gram Stain - Final 06/23/16 19:05 Stool Occult Blood (ANDRE) - Final Stool Assess/Plan/Problems-Billing Assessment: 85 yo M h/o recent volvulus, nephrectomy with CKD, spinal stimulator s/p removal and wound infection, heel pressure ulcer, and anemia p/w worsening anemia, found with abnormal CT without symptoms of volvulous but c/w previous CT at time of volvulous, worsening CKD, and osteomyolitis - Patient Problems (1) Anemia Comment: Suspect in setting of chronic illness and CKD Low iron sat and iron levels Add ferritin tomorrow s/p 2 U PRBC (2) RUDY (acute kidney injury) Comment: Injury potential in setting of acute infection, volume depletion, antibiotics Will ask Dr. Acosta to assess and assist (3) Osteomyelitis Comment: cefepime received vanco yesterday ID consult (4) Wounds, multiple Comment: Back and heels Last seen in wound care clinic 05/28 Wound care consult (5) DVT prophylaxis Comment: No e/o bleed HSQ
[2016-06-24] MEDS: Pramipexole TAB* 0.125 MG PO SCH (20:41)
[2016-06-24] MEDS: Polyethylene Glycol 3350* 17 GM PACKET PO SCH (20:41)
[2016-06-24] MEDS: Atorvastatin* 10 MG TAB PO SCH (20:43)
--- NOTE | 2016-06-24 22:00 | CONS ---
CONSULTATION REPORT: DATE OF CONSULT: 06/24/16 REASON FOR CONSULT: Abdominal distention, question sigmoid volvulus. NARRATIVE: Mr. Joy is an 85-year-old gentleman, resident in a long-term, who has a history of renal insufficiency, peripheral vascular disease, hypothyroidism, and hypertension. He was admitted for poor wound healing as well as anemia. The patient has a history of abdominal distention and about a month ago, presented with tense abdomen and distention. CT scan of the abdomen showed marked distention of the cecum with a question of sigmoid volvulus. I performed a decompressive sigmoidoscopy at that point which relieved his symptoms, although did not completely demonstrate a sigmoid volvulus, more likely it was colonic inertia. He was placed on MiraLAX 17 g daily. He has been in the long-term. Apparently, he has been feeling weak and has had poor wound healing and presented back to the emergency room where he was found to have a hemoglobin of 7.1 (previous hemoglobin in May of 2016 range from 9.7 to 8.3). He was transfused 2 units. The patient denies any abdominal pain. He states that his abdomen is always rather distended, but currently is not beyond the previous noted distention. He believes he had a bowel movement last night and this morning. Looking at the long-term notes, he has had very erratic bowel function where 2 to 3 days often goes by without him having a bowel movement. He has been eating well without any nausea or vomiting. He reports no GI bleeding. PAST MEDICAL HISTORY: Includes chronic renal insufficiency, chronic anemia, hypothyroidism, peripheral artery disease. PAST SURGICAL HISTORY: Includes a nephrectomy, a laminectomy, and appendectomy. MEDICATIONS: His at-home medicines were: 1. Oxycodone as needed. 2. Hytrin. 3. Zocor. 4. Mirapex. 5. MiraLAX. 6. Tamiflu. 7. Nifedipine. 8. Synthroid. 9. Fluconazole. PHYSICAL EXAM: He is a pleasant, chronically ill, elderly gentleman in no acute distress. He denies any pain currently. He is slightly pale. Temperature is 98.9, blood pressure is 120/50, heart rate is 86. Skin turgor appears grossly normal. Cardiac exam reveals a regular rhythm without murmur. Abdomen is somewhat distended but soft with hypoactive but present bowel sounds that are low pitched. There is no tenderness or rebound. LABORATORY DATA: Include a hemoglobin again of 8.7, white count of 8.6. Creatinine of 4.43. Iron saturation which is 10%. IMPRESSION AND PLAN: Elderly gentleman with multiple comorbidities with a history of colonic inertia. He did have a CAT scan which I did review, which does demonstrate dilated loops of colon with some decompression more distally. I do not believe he has a sigmoid volvulus. His clinical course is more consistent with colonic inertia, and I think attempts to improve bowel function will be fruitful. He is going to be placed back on MiraLAX. Perhaps that could be increased to twice- a-day therapy. As far as his anemia is concerned, it is likely multifactorial. His renal failure is quite significant and perhaps that is the major contributor. I will follow him during this hospitalization. CC: Dr. Dallas * [id number]/[facility] #: [id number] MTDD
[2016-06-24] MEDS: Heparin VIAL(*) 5000 UNITS/ML VIAL (FIVE THOUSAND) SUBCUT SCH (22:11)
[2016-06-25] MEDS: Morphine INJ* 2 MG/ML 1 ML SYRINGE IV PRN ×4 (05:30→20:42)
[2016-06-25] MEDS: Levothyroxine TAB* 100 MCG TAB PO SCH (05:33)
[2016-06-25] MEDS: Heparin VIAL(*) 5000 UNITS/ML VIAL (FIVE THOUSAND) SUBCUT SCH ×3 (05:34→22:03)
[2016-06-25] MEDS ORDERED: Vancomycin Random Level* NOTE FOLLOW UP ONE (06:00)
[2016-06-25] MEDS: Multivitamins/Minerals TAB PO SCH (08:10)
[2016-06-25] MEDS: Polyethylene Glycol 3350* 17 GM PACKET PO SCH (08:10)
[2016-06-25 08:15] LABS: Albumin 1.8 g/dL (3.2-5.2); BUN/Creatinine Ratio 17.9 (8-20); Calcium 7.8 mg/dL (8.6-10.3); EGFR African American 18.2 (>60); EGFR Non-African American 14.2 (>60); Globulin 3.3 g/dL (2-4); Potassium 3.4 mmol/L (3.5-5.0); Total Bilirubin 0.3 mg/dL (0.2-1.0); Total Protein 5.1 g/dL (6.4-8.9)
[2016-06-25 08:40] LABS: Hematocrit 27 % (42-52); Hemoglobin 8.6 g/dl (14.0-18.0); Mean Corpuscular HGB Conc 32 g/dl (31-36); Mean Corpuscular Hemoglobin 29 pg (27-31); Mean Corpuscular Volume 89 fL (80-94); Mean Platelet Volume 8 um3 (7.4-10.4); Red Blood Count 2.99 10^6/ul (4.0-5.4); Red Cell Distribution Width 15 % (10.5-15); White Blood Count 7.8 10^3/ul (3.5-10.8)
[2016-06-25 08:53] LABS: Vancomycin Random 20.2 mcg/mL
[2016-06-25] MEDS ORDERED: Sodium Bicarbonate 8.4%* 50 ML SYRINGE IV ONE (09:17)
--- NOTE | 2016-06-25 09:40 | PN ---
Progress Note - Progress Note Note: Surgery Full consult per Serge Linton; Mr Joy examined by me today. Heel ulcer is an unstageable ulcer with dry stable eschar. He has a lot of pain with this ulcer and the blood flow to the foot is uncertain due to non- compressible vessels. If he recovers from the renal insufficiency, can consider CTA to evaluate inflow to foot. Will continue Santyl for now and as eschar loosens will debride gradually. Open wounds on back are clean and granulating. Will change regimen to aquacel dressing qOD and prn. Pressure ulcers on buttocks are Stage II and the Mepilex border dressing is okay for now. He need to be on a pressure reducing mattress, and to be turned regularly; he is debilitated enough that he can barely help me turn him. Thanks, Pedro
[2016-06-25 09:59] LABS: Direct Bilirubin 0.1 mg/dL (0.03-0.18); Indirect Bilirubin 0.2 mg/dL (0.3-1.0)
--- NOTE | 2016-06-25 10:43 | CONS ---
CC: Dr. Luis M Wilburn; Arjun Nathan NP CONSULTATION NOTE DATE OF ADMISSION: 06/23/16 DATE OF CONSULT: 06/24/16 PATIENT OF: Dr. Luis M Wilburn REFERRED TO: Dr. Sofía Flores (dictated by RASHAD Florence) REASON FOR CONSULTATION: Left heel decubitus ulcer. HISTORY OF PRESENT ILLNESS: Mr. Joy is a pleasant 85-year-old gentleman who was admitted to the hospital yesterday with complaints of increasing fatigue and the findings of abnormal lab results. Patient is a resident of [facility] for the past four weeks. He underwent a spinal stimulator placement six weeks ago at [place], [place] that was, unfortunately, taken away a week later due to infection. Patient was on prolonged course of antibiotic for this infection, and he was placed at [facility] since then. For the past couple of weeks, patient has noticed increasing fatigue and shortness of breath, but denied any blood in his stools, melena, or coffee- ground emesis. He was seen in the ER, and he was found to have a hemoglobin of 6.9 for which he was admitted for further evaluation. Patient, unfortunately, has a complicated medical history significant for chronic kidney disease stage III, as well as gout, anemia and hypothyroidism. He also has a known history of peripheral vascular disease, and he was [facility] decubitus [facility]. We were asked to see the patient for further evaluation of left heel decubitus ulcer, sacral decubitus, as well as recent lower back wounds from spinal stimulator. PAST MEDICAL HISTORY: As mentioned above, significant for sigmoid volvulus, chronic kidney disease stage III, gout, anemia, hypothyroidism, hypertension, hyperlipidemia and peripheral vascular disease. PAST SURGICAL HISTORY: Significant for nephrectomy, laminectomy, lower extremity stents, appendectomy, removal and placement of spinal stimulator. HOME MEDICATIONS: Include: 1. Oxycodone as needed every 4 hours for pain. 2. Clonazepam 0.5 mg po q hs as needed. 3. Hytrin 5 mg q daily. 4. Zocor 10 mg q hs. 5. Mirapex 0.25 mg q hs. 6. MiraLax 17 grams po q daily. 7. Tamiflu 30 mg po every other day. 8. Nifedipine 30 mg po q daily. 9. Synthroid 100 mcg po q daily. 10. Fluconazole 150 mg po every 7 days. 11. Multivitamin one every day. ALLERGIES: He is allergic to SULFA and Pletal. FAMILY HISTORY: Non-contributory. SOCIAL HISTORY: The patient is a former smoker as well as former alcoholic. He lives at [facility]. REVIEW OF SYSTEMS: See HPI; otherwise negative. He denies any fever, chills, nausea, vomiting, chest pain, cough, dyspnea, dysuria, hematuria, or urinary frequency. PHYSICAL EXAMINATION: General: He is a pleasant elderly gentleman in no acute distress or discomfort at the time of consultation. VITALS - blood pressure 110 /55, pulse 94, respirations 18, O2 sat 100% on room air, and temperature of 98.5. HEENT - sclerae anicteric. PERRLA, EOMs intact. Oropharynx is pink, moist, with no exudate. Neck - supple. Trachea midline. No cervical adenopathy or thyromegaly. Lungs - clear to auscultation bilaterally. Heart - regular rate and rhythm. Normal S1 and S2 without rubs, murmurs, or gallops. Back - with normal curvature. Exam of the back revealed two open wounds at the L1 level that appear to be approximately 4 cm each with mild surrounding erythema, but no induration or tenderness. There is also a stage I sacral decubitus ulcer measuring approximately 3x4 cm covered with dressing. Abdomen - soft, nontender, and nondistended. No hernias, masses, or hepatosplenomegaly. Neurologic - he's awake and alert, oriented x3, and the mems process engineer are equal. Rectal exam - deferred at this time. Extremities - pulses were diminished in both lower extremities that appear to be a little cooler than the remainder of his body. There is no edema noted at this time. Right heel wound with an area of necrosis and eschar noted that measures about 6x4 cm , slightly tender on palpation with very mild surrounding erythema but no induration. I would estimate it's about a stage III decubitus ulcer. LABORATORY DATA: Labs today with white count of 8,600, hemoglobin 8.7, hematocrit 27, platelets 213. Chemistry with sodium 137, potassium 3.7, chloride 111, CO2 16, BUN 82, creatinine 4.4, glucose 93. LFTs with elevated alk phos of 254, albumin 2.0. ACCESSORY DIAGNOSTIC DATA: Patient had an MRI of the lower extremity earlier today that revealed lateral left heel ulcer with some signal changes at the calcaneal tuberosity that is most consistent with osteomyelitis. He also had an arterial study of the lower extremities that revealed evidence of moderate to severe peripheral arterial occlusion disease on the left foot more than the right. IMPRESSION: An 85-year-old gentleman with complicated past medical history and chronic non-healing decubitus wounds at the left heel and sacral area as well as a new wound at the upper lumbar area due to infected removed nerve spinal stimulator. PLAN: I went on and discussed with the patient and his family the findings of the physical exam. He appears to be stable and he does not show any evidence of sepsis due to his wounds at this time. The MRI is suggestive of osteomyelitis on the left foot for which the patient has been on IV antibiotics at this time. I think patient will likely benefit from debridement of the left heel and I would leave the final planning for Dr. Flores to discuss with the patient in that regard. Other than debridement of the left heel, I would recommend continuing the dressing on his sacral area using Mepilex for the sacral wound as well as wet-to-dry dressing for the lumbar wounds from the nerve stimulator removed, and we will continue to use a Santyl cream for his heel wound at this time, depending on if the patient will need debridement in the future or not. We will follow him up accordingly. RASHAD AGUILAR [id number]/[facility] #: [id number] ALEA
[2016-06-25] MEDS: Sodium Bicarbonate (ANTACID)* 650 MG TAB PO SCH ×4 (10:53→23:54)
[2016-06-25] MEDS: oxyCODONE TAB* 5 MG TAB PO PRN ×3 (10:53→22:08)
[2016-06-25 10:54] LABS: Ferritin 351.5 ng/mL (24-336)
[2016-06-25] MEDS ORDERED: Vancomycin(*) 1,000 MG in NS 0.9% 250 ML* 250 ML IVPB ONE (11:00)
[2016-06-25] MEDS ORDERED: SODIUM BICARBONATE IV ONE (12:00)
[2016-06-25] MEDS ORDERED: NS 0.9% IV ONE (12:00)
[2016-06-25] MEDS: Collagenase 250 MG/GM OINT* 30 GM TOPICAL SCH (13:07)
[2016-06-25 14:59] LABS: Transferrin 108 mg/dL (200 - 360)
--- NOTE | 2016-06-25 15:02 | PN ---
Subjective Date of Service: 06/25/16 Interval History: Seen and examined Feels like he has more energy today but noted by staff to be weak Did not feel hungry until he smelled food Pain better controlled no BM today Objective Active Medications: Acetaminophen (Tylenol Tab*) 650 mg PO Q4H PRN PRN Reason: FEVER/PAIN Atorvastatin Calcium (Lipitor*) 5 mg PO BEDTIME [facility] Last Admin: 06/24/16 20:43 Dose: 5 mg Clonazepam (Klonopin Tab(*)) 0.5 mg PO BEDTIME PRN PRN Reason: RESTLESSNESS Collagenase (Santyl 250 Mg/Gm Oint*) 1 applic TOPICAL DAILY [facility] Last Admin: 06/25/16 13:07 Dose: Not Given Heparin Sodium (Porcine) (Heparin Vial(*)) 5,000 units SUBCUT Q8HR [facility] Last Admin: 06/25/16 13:35 Dose: 5,000 units Cefepime HCl 0.5 gm/ Sodium (Chloride) 50 mls @ 100 mls/hr IVPB Q24H [facility] Last Admin: 06/24/16 17:59 Dose: 100 mls/hr Levothyroxine Sodium (Synthroid Tab*) 100 mcg PO DAILY@0600 [facility] Last Admin: 06/25/16 05:33 Dose: 100 mcg Morphine Sulfate (Morphine Inj (Syringe)*) 2 mg IV Q4H PRN PRN Reason: PAIN - MILD Last Admin: 06/25/16 14:03 Dose: 2 mg Multivitamins/Minerals (Theragran/Minerals Tab*) 1 tab PO DAILY [facility] Last Admin: 06/25/16 08:10 Dose: 1 tab Oxycodone HCl (Roxycodone Tab*) 5 mg PO Q4H PRN PRN Reason: PAIN - MODERATE Last Admin: 06/25/16 10:53 Dose: 5 mg Pharmacy Consult (Vancomycin Per Pharmacy*) 1 note FOLLOW UP . PRN PRN Reason: PER PROTOCOL Pharmacy Consult (Vancomycin Random Level*) 1 note FOLLOW UP ONCE ONE Stop: 06/26/16 06:01 Polyethylene Glycol/Electrolytes (Miralax*) 17 gm PO DAILY [facility] Last Admin: 06/25/16 08:10 Dose: 17 gm Pramipexole Dihydrochloride (Mirapex Tab*) 0.25 mg PO BEDTIME [facility] Last Admin: 06/24/16 20:41 Dose: 0.25 mg Sodium Bicarbonate (Sodium Bicarbonate (Antacid)*) 1,300 mg PO Q6HR [facility] Last Admin: 06/25/16 13:34 Dose: 1,300 mg Vital Signs 06/24/16 06/24/16 06/24/16 15:16 15:38 18:05 Temperature 98.9 F Pulse Rate 86 Respiratory 18 18 18 Rate Blood Pressure 120/50 (mmHg) O2 Sat by Pulse 97 Oximetry 06/24/16 06/24/16 06/24/16 19:33 20:00 20:05 Temperature 98.2 F Pulse Rate 88 Respiratory 24 19 19 Rate Blood Pressure 130/62 (mmHg) O2 Sat by Pulse 97 Oximetry 06/24/16 06/24/16 06/25/16 23:53 23:59 00:59 Temperature 98.8 F Pulse Rate 84 Respiratory 16 18 16 Rate Blood Pressure 129/54 (mmHg) O2 Sat by Pulse 99 Oximetry 06/25/16 06/25/16 06/25/16 05:30 07:47 08:15 Temperature 98.1 F Pulse Rate 78 Respiratory 17 16 Rate Blood Pressure 116/46 (mmHg) O2 Sat by Pulse 95 96 Oximetry 06/25/16 06/25/16 06/25/16 09:14 09:55 10:53 Temperature Pulse Rate Respiratory 16 18 18 Rate Blood Pressure (mmHg) O2 Sat by Pulse Oximetry 06/25/16 06/25/16 12:53 14:03 Temperature Pulse Rate Respiratory 18 18 Rate Blood Pressure (mmHg) O2 Sat by Pulse Oximetry Oxygen Devices in Use Now: None Appearance: NAD Eyes: No Scleral Icterus, PERRLA Ears/Nose/Mouth/Throat: Clear Oropharnyx, Mucous Membranes Moist Neck: NL Appearance and Movements; NL JVP, Trachea Midline Respiratory: Symmetrical Chest Expansion and Respiratory Effort, Clear to Auscultation Cardiovascular: RRR Abdominal: - - soft, NTTP, distended, +bs Extremities: No Edema Skin: - - left heel ulcer and ulcers on back as described in wound care note from today Neurological: Alert and Oriented x 3 Result Diagrams: 06/25/16 07:17 06/25/16 07:17 Microbiology and Other Data: Microbiology 06/23/16 21:51 Transfusion Reaction Culture - Preliminary Blood Bag Culture Under Incubation Transfusion Reaction Gram Stain - Final 06/23/16 19:05 Stool Occult Blood (ANDRE) - Final Stool Assess/Plan/Problems-Billing Assessment: 85 yo M h/o recent volvulus, nephrectomy with CKD, spinal stimulator s/p removal and wound infection, heel pressure ulcer, and anemia p/w worsening anemia, worsening CKD, and osteomyolitis - Patient Problems (1) Metabolic acidosis Comment: In setting of renal failure bicarn deficit about 300meq 50meq this AM as IV push then start bicab tabs 1300 q6hr. Repeat BMP this afternoon (2) Anemia Comment: Suspect in setting of chronic illness and CKD iron studies c/w chronic dz will ask renal consult to comment on epogen s/p 2 U PRBC (3) RUDY (acute kidney injury) Comment: Injury potential in setting of acute infection, volume depletion, antibiotics Mild improvement with crystalloids Will ask Dr. Acosta to assess and assist (4) Osteomyelitis Comment: cefepime, vanco ID consult (5) Wounds, multiple Comment: Back and heels appreciate Wound care consult and Dr. Flores's assistance (6) DVT prophylaxis Comment: No e/o bleed HSQ
[2016-06-25 17:36] LABS: BUN/Creatinine Ratio 17.5 (8-20); Calcium 7.8 mg/dL (8.6-10.3); EGFR African American 19.1 (>60); EGFR Non-African American 14.8 (>60); Potassium 3.3 mmol/L (3.5-5.0)
[2016-06-25] MEDS: Cefepime(*) 0.5 GM in NS 0.9% 50 ML* 50 ML IVPB SCH (17:40)
[2016-06-25 19:25] LABS: Haptoglobin 322 mg/dL (30 - 200)
[2016-06-25] MEDS: Pramipexole TAB* 0.125 MG PO SCH (20:45)
[2016-06-25] MEDS: Atorvastatin* 10 MG TAB PO SCH (20:45)
--- NOTE | 2016-06-25 21:33 | CONS ---
CONSULTATION REPORT: DATE OF CONSULT: 06/25/16 REQUESTING PHYSICIAN: Dr. Wilburn. CONSULTING SERVICE: Infectious Disease. REASON FOR CONSULT: Heel ulcer, osteomyelitis. IMPRESSION: 1. Left foot, pressure-related chronic ulcer with eschar and dry gangrene. MRI shows underlying os teomyelitis which is acute, likely staphylococcal. There is no external site of infection. He has been on IV antibiotics for few weeks for another source. The MRI abnormality would persist for rosario hs after microbiologic clearance. Because he has already been on a few weeks of IV antibiotics, I t hink oral therapy would be reasonable [facility]. 2. Spinal stimulator placement, recently complicated by infection which was then removed, entire de vice removed, treated with IV antibiotics. I do not have the information yet from [facility] on organi sm or antibiotic. 3. Right nonpressure-related lateral malleolus ulceration. 4. Right sacral decubitus ulceration without surrounding erythema. CT abdomen and pelvis, when I r ead, did not show deep collection associated with that ulceration. 5. Rheumatoid arthritis. 6. Peripheral vascular disease. 7. Status post nephrectomy. 8. Chronic kidney disease. 9. Acute kidney injury, not prerenal by labs, question acute tubular necrosis. There is no hydronep hrosis on the CT abdomen and pelvis. He was on prolonged IV antibiotics. Interstitial nephritis wa s a consideration as well. RECOMMENDATION: 1. Agree with cefepime dosed for his GFR less than 10 while his workup continues. I think long-term oral antibiotic therapy would be reasonable as he has had significant head start on treating this o steomyelitis. He is being followed by surgical service for debridement of the heel ulcer. 2. He will need close attention to the spinal stimulator wounds which are still open on his back an d do not appear infected, but will be slow to heal. HISTORY OF PRESENT ILLNESS: An 85-year-old male with rheumatoid arthritis admitted with GI bleed. He had recently been at [facility] after a spinal stimulator was placed in [place]. It was r emoved soon after placement due to bacterial infection, he had prolonged IV antibiotics. He is at [facility]. He has a left calcaneus ulcer, right lateral malleolus ulcer, and a sacral decu bitus ulceration. MRI showed signal change in the calcaneal tuberosity which is hyperintense on T2 weighted images and normal T1 hyperintensity. He was started on cefepime. He was found to have acu te kidney injury, he was dosed to 0.5 g a day. He has been normotensive and normothermic. Blood cu ltures were sent and are negative. Urine culture is negative. He has significant left heel pain wh ich is worse with any movement. PAST MEDICAL HISTORY: 1. Rheumatoid arthritis. 2. Hypothyroidism. 3. Sigmoid volvulus. 4. Chronic kidney disease. 5. Gout. 6. Anemia. 7. Hypertension. 8. Hyperlipidemia. 9. Peripheral arterial disease. 10. Status post nephrectomy. 11. Status post laminectomy. 12. Status post lower extremity stenting. 13. Status post appendectomy. 14. Spinal stimulator placement, complicated by infection and then explant of the hardware. MEDICATIONS: 1. Tylenol. 2. Lipitor. 3. Collagenase. 4. Heparin subcutaneous injection. 5. Levothyroxine. 6. Cefepime 0.5 g a day. 7. Sodium bicarbonate. ALLERGIES: SULFA and PLETAL. FAMILY HISTORY: Parents are . No recurrent infections. SOCIAL HISTORY: He has been living at [facility] recently. He has no sick contacts. REVIEW OF SYSTEMS: All negative on 14-point review of systems except as noted above. PHYSICAL EXAM: Vital Signs: Temperature 37, heart rate 88, respiratory rate 18, blood pressure 116 /46, O2 sat 96% on room air. In general, he is not in distress, not diaphoretic. Neurologic: Awak e and oriented x3. Follows all commands. HEENT: There is no conjunctival hemorrhage. Oropharynx w ithout lesions. Neck is supple without nuchal rigidity. Lymph Nodes: There is no cervical, suprac lavicular, inguinal, axillary, or epitrochlear lymphadenopathy. Heart has regular rate and rhythm w ithout murmurs, rubs, or gallops. Lungs are clear to auscultation bilaterally. Abdomen: Soft, non tender, nondistended. Normal bowel sounds present. Skin: There is no rash or splinter hemorrhages . Musculoskeletal: There are, right of lumbar spine, 2 incisions which are open with underlying gra nulation tissue. There is no surrounding erythema or drainage. There is a right sacral decubitus u lcer which has eschar. There is a right lateral malleolus 1-cm ulceration without erythema or tende rness. There is a left large calcaneus ulceration with dry gangrene. No surrounding erythema. LABORATORY DATA: White blood cell count 7, hemoglobin 8, platelets 232. Creatinine is 4. CRP is 10 0. Please see impressions and recommendations as outlined above. Thanks for asking me to see Zackary Rufino in consultation. [id number]/[facility] #: [id number]
[2016-06-26] MEDS: Levothyroxine TAB* 100 MCG TAB PO SCH (05:40)
[2016-06-26] MEDS: oxyCODONE TAB* 5 MG TAB PO PRN ×3 (05:41→17:59)
[2016-06-26] MEDS: Sodium Bicarbonate (ANTACID)* 650 MG TAB PO SCH ×4 (05:41→22:49)
[2016-06-26] MEDS: Heparin VIAL(*) 5000 UNITS/ML VIAL (FIVE THOUSAND) SUBCUT SCH ×3 (05:41→22:52)
[2016-06-26] MEDS ORDERED: Vancomycin Random Level* NOTE FOLLOW UP ONE (06:00)
[2016-06-26 09:37] LABS: BUN/Creatinine Ratio 17.9 (8-20); EGFR African American 19.2 (>60); Potassium 3.2 mmol/L (3.5-5.0)
[2016-06-26 09:38] LABS: Calcium 7.7 mg/dL (8.6-10.3)
[2016-06-26] MEDS: Multivitamins/Minerals TAB PO SCH (11:06)
[2016-06-26] MEDS: Acetaminophen TAB* 325 MG PO PRN ×2 (11:07→23:56)
[2016-06-26] MEDS: Polyethylene Glycol 3350* 17 GM PACKET PO SCH (11:22)
[2016-06-26] MEDS: Morphine INJ* 2 MG/ML 1 ML SYRINGE IV PRN ×2 (16:05→21:51)
[2016-06-26] MEDS: Collagenase 250 MG/GM OINT* 30 GM TOPICAL SCH (16:06)
--- NOTE | 2016-06-26 17:04 | PN ---
Subjective Date of Service: 06/26/16 Interval History: Seen with son and other family at bedside Has pain in left hand and "all over" Can not tell me why he is in the hospital despite reviewing problems daily Objective Active Medications: Acetaminophen (Tylenol Tab*) 650 mg PO Q4H PRN PRN Reason: FEVER/PAIN Last Admin: 06/26/16 11:07 Dose: 650 mg Atorvastatin Calcium (Lipitor*) 5 mg PO BEDTIME [facility] Last Admin: 06/25/16 20:45 Dose: 5 mg Clonazepam (Klonopin Tab(*)) 0.5 mg PO BEDTIME PRN PRN Reason: RESTLESSNESS Collagenase (Santyl 250 Mg/Gm Oint*) 1 applic TOPICAL DAILY [facility] Last Admin: 06/26/16 16:06 Dose: 1 applic Heparin Sodium (Porcine) (Heparin Vial(*)) 5,000 units SUBCUT Q8HR [facility] Last Admin: 06/26/16 16:04 Dose: 5,000 units Cefepime HCl 0.5 gm/ Sodium (Chloride) 50 mls @ 100 mls/hr IVPB Q24H [facility] Last Admin: 06/25/16 17:40 Dose: 100 mls/hr Lactated Ringer's (Lactated Ringers 1000 Ml Bag*) 1,000 mls @ 125 mls/hr IV PER RATE [facility] Stop: 06/27/16 18:59 Last Admin: 06/26/16 11:11 Dose: 125 mls/hr Levothyroxine Sodium (Synthroid Tab*) 100 mcg PO DAILY@0600 [facility] Last Admin: 06/26/16 05:40 Dose: 100 mcg Morphine Sulfate (Morphine Inj (Syringe)*) 2 mg IV Q4H PRN PRN Reason: PAIN - MILD Last Admin: 06/26/16 16:05 Dose: 2 mg Multivitamins/Minerals (Theragran/Minerals Tab*) 1 tab PO DAILY [facility] Last Admin: 06/26/16 11:06 Dose: 1 tab Oxycodone HCl (Roxycodone Tab*) 5 mg PO Q4H PRN PRN Reason: PAIN - MODERATE Last Admin: 06/26/16 11:07 Dose: 5 mg Polyethylene Glycol/Electrolytes (Miralax*) 17 gm PO DAILY [facility] Last Admin: 06/26/16 11:22 Dose: Not Given Pramipexole Dihydrochloride (Mirapex Tab*) 0.25 mg PO BEDTIME [facility] Last Admin: 06/25/16 20:45 Dose: 0.25 mg Sodium Bicarbonate (Sodium Bicarbonate (Antacid)*) 1,300 mg PO Q6HR [facility] Last Admin: 06/26/16 11:06 Dose: 1,300 mg Vital Signs 06/25/16 06/25/16 06/25/16 20:00 20:42 21:42 Temperature Pulse Rate Respiratory 17 18 18 Rate Blood Pressure (mmHg) O2 Sat by Pulse Oximetry 06/25/16 06/25/16 06/26/16 22:08 23:31 00:08 Temperature 98.3 F Pulse Rate 85 Respiratory 17 16 16 Rate Blood Pressure 130/53 (mmHg) O2 Sat by Pulse 97 Oximetry 06/26/16 06/26/16 06/26/16 05:41 07:37 08:00 Temperature 99.0 F Pulse Rate 76 Respiratory 18 16 16 Rate Blood Pressure 117/48 (mmHg) O2 Sat by Pulse 92 Oximetry 06/26/16 06/26/16 06/26/16 09:29 11:07 16:05 Temperature Pulse Rate Respiratory 18 18 Rate Blood Pressure (mmHg) O2 Sat by Pulse 98 Oximetry Oxygen Devices in Use Now: None Appearance: NAD Eyes: No Scleral Icterus, PERRLA Ears/Nose/Mouth/Throat: Clear Oropharnyx, Mucous Membranes Moist Neck: NL Appearance and Movements; NL JVP, Trachea Midline Respiratory: Symmetrical Chest Expansion and Respiratory Effort, Clear to Auscultation Cardiovascular: RRR Abdominal: No Hepatosplenomegaly, - - soft, NTTP, +distention Lymphatic: No Cervical Adenopathy Extremities: No Edema Skin: - - ulcers as described elsewhere on left heal, back and sacrum Neurological: Alert and Oriented x 3 Result Diagrams: 06/25/16 07:17 06/26/16 06:00 Microbiology and Other Data: Microbiology 06/23/16 21:51 Transfusion Reaction Culture - Preliminary Blood Bag Culture Under Incubation Transfusion Reaction Gram Stain - Final 06/23/16 19:05 Stool Occult Blood (ANDRE) - Final Stool Assess/Plan/Problems-Billing Assessment: 85 yo M h/o recent volvulus, nephrectomy with CKD, spinal stimulator s/p removal and wound infection, heel pressure ulcer, and anemia p/w worsening anemia, worsening CKD, and osteomyolitis - Patient Problems (1) Metabolic acidosis Comment: In setting of renal failure bicarb deficit improved with PO replacememt trend (2) Anemia Comment: Suspect in setting of chronic illness and CKD iron studies c/w chronic dz will ask renal consult to comment on epogen s/p 2 U PRBC (3) RUDY (acute kidney injury) Comment: Injury potential in setting of acute infection, volume depletion, antibiotics Mild improvement with crystalloids Will ask Dr. Acosta to assess and assist I asked pt and family to consider what he would want if kidney fxn worsens in the future (4) Osteomyelitis Comment: c/w cefepime plan on PO as outpatient (5) Wounds, multiple Comment: Back and heels appreciate Wound care consult and Dr. Flores's assistance (6) DVT prophylaxis Comment: HSQ Status and Disposition: [facility] referrals sent out prior to weekend
[2016-06-26] MEDS: Cefepime(*) 0.5 GM in NS 0.9% 50 ML* 50 ML IVPB SCH (18:02)
[2016-06-26] MEDS: Atorvastatin* 10 MG TAB PO SCH (22:46)
[2016-06-26] MEDS: Pramipexole TAB* 0.125 MG PO SCH (22:48)
[2016-06-27] MEDS: Levothyroxine TAB* 100 MCG TAB PO SCH (06:58)
[2016-06-27] MEDS: Sodium Bicarbonate (ANTACID)* 650 MG TAB PO SCH ×4 (06:59→23:38)
[2016-06-27] MEDS: Heparin VIAL(*) 5000 UNITS/ML VIAL (FIVE THOUSAND) SUBCUT SCH ×3 (06:59→23:27)
[2016-06-27] MEDS ORDERED: Potassium Chlor TAB* 20 MEQ TAB.ER PO ONE (08:16)
[2016-06-27] MEDS: Multivitamins/Minerals TAB PO SCH (08:59)
[2016-06-27] MEDS: Polyethylene Glycol 3350* 17 GM PACKET PO SCH (08:59)
[2016-06-27] MEDS: Ondansetron INJ* 2 MG/ML VIAL IV PRN (09:43)
[2016-06-27] MEDS: Morphine INJ* 2 MG/ML 1 ML SYRINGE IV PRN ×2 (10:20→14:59)
[2016-06-27] MEDS: Collagenase 250 MG/GM OINT* 30 GM TOPICAL SCH (12:30)
[2016-06-27] MEDS: oxyCODONE TAB* 5 MG TAB PO PRN ×2 (13:26→16:44)
--- NOTE | 2016-06-27 15:10 | PN ---
Subjective Date of Service: 06/27/16 Interval History: Seen with at bedside had nausea earlier Very large BM per patient today Pain in heels continues. Will increase oxycodone dosing. Objective Active Medications: Acetaminophen (Tylenol Tab*) 650 mg PO Q4H PRN PRN Reason: FEVER/PAIN Last Admin: 06/26/16 23:56 Dose: 650 mg Atorvastatin Calcium (Lipitor*) 5 mg PO BEDTIME [facility] Last Admin: 06/26/16 22:46 Dose: 5 mg Clonazepam (Klonopin Tab(*)) 0.5 mg PO BEDTIME PRN PRN Reason: RESTLESSNESS Collagenase (Santyl 250 Mg/Gm Oint*) 1 applic TOPICAL DAILY [facility] Last Admin: 06/27/16 12:30 Dose: 1 applic Heparin Sodium (Porcine) (Heparin Vial(*)) 5,000 units SUBCUT Q8HR [facility] Last Admin: 06/27/16 13:26 Dose: 5,000 units Cefepime HCl 0.5 gm/ Sodium (Chloride) 50 mls @ 100 mls/hr IVPB Q24H [facility] Last Admin: 06/26/16 18:02 Dose: 100 mls/hr Lactated Ringer's (Lactated Ringers 1000 Ml Bag*) 1,000 mls @ 125 mls/hr IV PER RATE [facility] Stop: 06/27/16 18:59 Last Admin: 06/26/16 20:41 Dose: 125 mls/hr Levothyroxine Sodium (Synthroid Tab*) 100 mcg PO DAILY@0600 [facility] Last Admin: 06/27/16 06:58 Dose: 100 mcg Morphine Sulfate (Morphine Inj (Syringe)*) 2 mg IV Q4H PRN PRN Reason: PAIN - MILD Last Admin: 06/27/16 14:59 Dose: 2 mg Multivitamins/Minerals (Theragran/Minerals Tab*) 1 tab PO DAILY [facility] Last Admin: 06/27/16 08:59 Dose: 1 tab Ondansetron HCl (Zofran Inj*) 4 mg IV Q4H PRN PRN Reason: NARCOTIC REVERSAL Last Admin: 06/27/16 09:43 Dose: 4 mg Oxycodone HCl (Roxycodone Tab*) 5 mg PO Q4H PRN PRN Reason: PAIN - MODERATE Last Admin: 06/27/16 13:26 Dose: 5 mg Polyethylene Glycol/Electrolytes (Miralax*) 17 gm PO DAILY [facility] Last Admin: 06/27/16 08:59 Dose: 17 gm Pramipexole Dihydrochloride (Mirapex Tab*) 0.25 mg PO BEDTIME [facility] Last Admin: 06/26/16 22:48 Dose: 0.25 mg Sodium Bicarbonate (Sodium Bicarbonate (Antacid)*) 1,300 mg PO Q6HR [facility] Last Admin: 06/27/16 12:11 Dose: 1,300 mg Vital Signs 06/26/16 06/26/16 06/26/16 15:28 16:05 17:59 Temperature 97.3 F Pulse Rate 66 Respiratory 18 18 Rate Blood Pressure 121/52 (mmHg) O2 Sat by Pulse 95 Oximetry 06/26/16 06/26/16 06/26/16 19:59 20:00 21:51 Temperature Pulse Rate Respiratory 20 20 18 Rate Blood Pressure (mmHg) O2 Sat by Pulse Oximetry 06/26/16 06/26/16 06/27/16 22:51 23:31 07:22 Temperature 100.4 F 97.8 F Pulse Rate 75 72 Respiratory 18 16 16 Rate Blood Pressure 137/55 139/60 (mmHg) O2 Sat by Pulse 96 100 Oximetry 06/27/16 06/27/16 06/27/16 08:00 09:42 10:20 Temperature Pulse Rate Respiratory 16 16 Rate Blood Pressure (mmHg) O2 Sat by Pulse 96 Oximetry 06/27/16 06/27/16 06/27/16 11:20 13:26 14:59 Temperature Pulse Rate Respiratory 16 16 16 Rate Blood Pressure (mmHg) O2 Sat by Pulse Oximetry Oxygen Devices in Use Now: None Appearance: NAD Eyes: No Scleral Icterus, PERRLA Ears/Nose/Mouth/Throat: Clear Oropharnyx, Mucous Membranes Moist Neck: NL Appearance and Movements; NL JVP, Trachea Midline Respiratory: Symmetrical Chest Expansion and Respiratory Effort, Clear to Auscultation Cardiovascular: RRR Abdominal: - - soft, +distention/stable, NTTP, +bs Lymphatic: No Cervical Adenopathy Extremities: No Edema Skin: - - heels and sacrum covered Neurological: Alert and Oriented x 3 Lines/Tubes/Other Access: Clean, Dry and Intact Ortiz - chronic Result Diagrams: 06/25/16 07:17 06/26/16 06:00 Microbiology and Other Data: Microbiology 06/23/16 21:51 Transfusion Reaction Culture - Preliminary Blood Bag Culture Under Incubation Transfusion Reaction Gram Stain - Final 06/23/16 19:05 Stool Occult Blood (ANDRE) - Final Stool Assess/Plan/Problems-Billing Assessment: 85 yo M h/o recent volvulus, nephrectomy with CKD, spinal stimulator s/p removal and wound infection, heel pressure ulcer, and anemia p/w worsening anemia, worsening CKD, and osteomyolitis - Patient Problems (1) Metabolic acidosis Comment: In setting of renal failure bicarb deficit improved with PO replacememt trend (2) Anemia Comment: Suspect in setting of chronic illness and CKD iron studies c/w chronic dz will ask renal consult to comment on epogen s/p 2 U PRBC (3) RUDY (acute kidney injury) Comment: Injury potential in setting of acute infection, volume depletion, antibiotics Mild improvement with crystalloids Will ask Dr. Acosta to assess and assist I asked pt and family to consider what he would want if kidney fxn worsens in the future (4) Osteomyelitis Comment: c/w cefepime plan on PO as outpatient (5) Wounds, multiple Comment: Back and heels appreciate Wound care consult and Dr. Flores's assistance (6) DVT prophylaxis Comment: HSQ Status and Disposition: [facility] referrals sent out prior to weekend. Stable for discharge. Will need f/u with nephrology, wound care clinic, and PO abx for osteomyelitis
[2016-06-27] MEDS: Cefepime(*) 0.5 GM in NS 0.9% 50 ML* 50 ML IVPB SCH (17:59)
[2016-06-27] MEDS: Atorvastatin* 10 MG TAB PO SCH (23:26)
[2016-06-27] MEDS: Pramipexole TAB* 0.125 MG PO SCH (23:26)
[2016-06-28] MEDS: Levothyroxine TAB* 100 MCG TAB PO SCH (06:28)
[2016-06-28] MEDS: Heparin VIAL(*) 5000 UNITS/ML VIAL (FIVE THOUSAND) SUBCUT SCH ×3 (06:28→21:35)
[2016-06-28] MEDS: Sodium Bicarbonate (ANTACID)* 650 MG TAB PO SCH ×4 (06:28→20:04)
[2016-06-28 06:47] LABS: Hematocrit 28 % (42-52); Hemoglobin 9.3 g/dl (14.0-18.0); Mean Corpuscular HGB Conc 33 g/dl (31-36); Mean Corpuscular Hemoglobin 29 pg (27-31); Mean Corpuscular Volume 87 fL (80-94); Mean Platelet Volume 8 um3 (7.4-10.4); Red Blood Count 3.26 10^6/ul (4.0-5.4); Red Cell Distribution Width 15 % (10.5-15); White Blood Count 8.6 10^3/ul (3.5-10.8)
[2016-06-28] MEDS: oxyCODONE TAB* 5 MG TAB PO PRN ×3 (06:49→20:03)
[2016-06-28 07:02] LABS: BUN/Creatinine Ratio 16.6 (8-20); Calcium 7.9 mg/dL (8.6-10.3); EGFR African American 21.5 (>60); EGFR Non-African American 16.7 (>60); Potassium 2.9 mmol/L (3.5-5.0)
[2016-06-28] MEDS ORDERED: Potassium Chlor TAB* 20 MEQ TAB.ER PO ONE (08:33)
[2016-06-28] MEDS: Ondansetron INJ* 2 MG/ML VIAL IV PRN (10:39)
[2016-06-28] MEDS: Morphine INJ* 2 MG/ML 1 ML SYRINGE IV PRN ×3 (10:49→22:04)
[2016-06-28] MEDS: Multivitamins/Minerals TAB PO SCH (10:53)
[2016-06-28] MEDS: Polyethylene Glycol 3350* 17 GM PACKET PO SCH (10:53)
[2016-06-28] MEDS: Collagenase 250 MG/GM OINT* 30 GM TOPICAL SCH (11:16)
[2016-06-28] MEDS ORDERED: Morphine INJ* 4 MG/ML 1 ML SYRINGE IV ONE (13:09)
[2016-06-28] MEDS ORDERED: PROCHLORPERAZINE INJ 5 MG/ML 2 ML VIAL IV PRN (13:10)
--- NOTE | 2016-06-28 14:57 | PN ---
Progress Note - Progress Note SOAP: Subjective: Asked to see patient for re-evaluation of L heel ulcer. Patient denies any complaints. Objective: VSS, afebrile L heel with eschar noted, appears to be softended since last exam 2-3 days ago. Wound margins softer in texture and no drainage noted. No erythema or induration. Assessment: An 85 y/o male with unstageable L heel ulcer, improving with Santyl and dressing changes. Plan: Continue current regimen. Will d/c Dr. Flores tomorrow.
--- NOTE | 2016-06-28 17:15 | RAD ---
CLINICAL HISTORY: Rule out obstruction, osteomyelitis COMPARISON: June 23, 2016 TECHNIQUE: Multiple contiguous axial CT scans were obtained of the abdomen and pelvis, without intravenous contrast enhancement. Coronal and sagittal multiplanar reformations are submitted for review. Oral contrast was administered. FINDINGS: The study is limited by the lack of intravenous contrast. This limits evaluation of the solid organs and vasculature. LUNG BASES: There are moderate bilateral pleural effusions. There is bibasilar at atelectasis. LIVER: The liver is normal in shape, size, contour, and attenuation. BILE DUCTS: There is no intrahepatic or extrahepatic biliary dilatation. GALLBLADDER: The gallbladder is normal, without pericholecystic inflammatory change. PANCREAS: The pancreas is normal, without mass or ductal dilatation. SPLEEN: Normal in size and appearance. UPPER GI TRACT: Evaluation of the gastrointestinal tract is limited by incomplete gastric distention. The upper GI tract is unremarkable. SMALL BOWEL AND MESENTERY: The small bowel is normal in contour, course, and caliber. There is no obstruction or dilatation. COLON: Oral contrast reaches the colon. Again noted is diffuse distention mild dilatation of the proximal and transverse colon. Oral contrast reaches the rectum ADRENALS: Normal bilaterally. KIDNEYS: The patient is status post left hip recommend. On the right, there is no appreciable hydronephrosis. BLADDER: The bladder is collapsed rounded Ortiz catheter. PELVIC ORGANS: The pelvic organs are not visualized. AORTA: There is atherosclerosis of the abdominal aorta with focal aneurysmal dilatation of the infrarenal abdominal aorta. This is stable from the previous examination IVC: Unremarkable LYMPH NODES: There is no lymphadenopathy by size criteria. ABDOMINAL WALL: There is no evidence for abdominal wall hernia. BONES AND SOFT TISSUES: Degenerative changes noted of the spine and hips OTHER: There is a trace amount of ascites IMPRESSION: 1. AGAIN NOTED IS DISTENTION AND MILD DILATATION OF THE PROXIMAL TRANSVERSE COLON. ORAL CONTRAST REACHES THE RECTUM. THIS IS SIMILAR TO THE PREVIOUS EXAMINATION. THERE IS NO SMALL BOWEL OBSTRUCTION. 2. ATHEROSCLEROSIS WITH ABDOMINAL AORTIC ANEURYSM. 3. MODERATE BILATERAL PLEURAL EFFUSIONS WITH BIBASILAR ATELECTASIS. 4. TRACE AMOUNT OF ASCITES
[2016-06-28] MEDS: Cefepime(*) 0.5 GM in NS 0.9% 50 ML* 50 ML IVPB SCH (18:01)
--- NOTE | 2016-06-28 18:28 | PN ---
Subjective Date of Service: 06/28/16 Interval History: pt c/o left heel pain. Abd is distended, but passing flatus and has loose BM's daily. denies abd pain. Objective Active Medications: Acetaminophen (Tylenol Tab*) 650 mg PO Q4H PRN PRN Reason: FEVER/PAIN Last Admin: 06/26/16 23:56 Dose: 650 mg Atorvastatin Calcium (Lipitor*) 5 mg PO BEDTIME [facility] Last Admin: 06/27/16 23:26 Dose: 5 mg Clonazepam (Klonopin Tab(*)) 0.5 mg PO BEDTIME PRN PRN Reason: RESTLESSNESS Collagenase (Santyl 250 Mg/Gm Oint*) 1 applic TOPICAL DAILY [facility] Last Admin: 06/28/16 11:16 Dose: 1 applic Heparin Sodium (Porcine) (Heparin Vial(*)) 5,000 units SUBCUT Q8HR [facility] Last Admin: 06/28/16 13:03 Dose: 5,000 units Cefepime HCl 0.5 gm/ Sodium (Chloride) 50 mls @ 100 mls/hr IVPB Q24H [facility] Last Admin: 06/28/16 18:01 Dose: 100 mls/hr Levothyroxine Sodium (Synthroid Tab*) 100 mcg PO DAILY@0600 [facility] Last Admin: 06/28/16 06:28 Dose: 100 mcg Morphine Sulfate (Morphine Inj (Syringe)*) 2 mg IV Q4H PRN PRN Reason: PAIN Last Admin: 06/28/16 18:01 Dose: 2 mg Multivitamins/Minerals (Theragran/Minerals Tab*) 1 tab PO DAILY [facility] Last Admin: 06/28/16 10:53 Dose: Not Given Ondansetron HCl (Zofran Inj*) 4 mg IV Q4H PRN PRN Reason: NARCOTIC REVERSAL Last Admin: 06/28/16 10:39 Dose: 4 mg Oxycodone HCl (Roxycodone Tab*) 5 mg PO Q4H PRN PRN Reason: PAIN - MODERATE Last Admin: 06/28/16 06:49 Dose: 5 mg Oxycodone HCl (Roxycodone Tab*) 10 mg PO Q4H PRN PRN Reason: PAIN - SEVERE Last Admin: 06/28/16 13:04 Dose: 10 mg Polyethylene Glycol/Electrolytes (Miralax*) 17 gm PO DAILY [facility] Last Admin: 06/28/16 10:53 Dose: Not Given Pramipexole Dihydrochloride (Mirapex Tab*) 0.25 mg PO BEDTIME [facility] Last Admin: 06/27/16 23:26 Dose: 0.25 mg Prochlorperazine Edisylate (Compazine Inj*) 5 mg IV Q6H PRN PRN Reason: NAUSEA/VOMITING Sodium Bicarbonate (Sodium Bicarbonate (Antacid)*) 1,300 mg PO TID [facility] Vital Signs 06/27/16 06/27/16 06/28/16 23:14 23:39 06:49 Temperature 99.2 F Pulse Rate 76 Respiratory 16 18 16 Rate Blood Pressure 137/53 (mmHg) O2 Sat by Pulse 90 Oximetry 06/28/16 06/28/16 06/28/16 07:25 09:41 09:49 Temperature 97.7 F Pulse Rate 69 Respiratory 15 18 Rate Blood Pressure 144/60 (mmHg) O2 Sat by Pulse 100 93 Oximetry 06/28/16 06/28/16 06/28/16 10:49 11:41 13:04 Temperature Pulse Rate Respiratory 18 18 18 Rate Blood Pressure (mmHg) O2 Sat by Pulse Oximetry 06/28/16 06/28/16 06/28/16 13:37 14:37 15:18 Temperature 98.2 F Pulse Rate 72 Respiratory 18 18 18 Rate Blood Pressure 139/64 (mmHg) O2 Sat by Pulse 98 Oximetry 06/28/16 06/28/16 16:04 18:01 Temperature Pulse Rate Respiratory 18 Rate Blood Pressure (mmHg) O2 Sat by Pulse 93 Oximetry Oxygen Devices in Use Now: None Appearance: 85 yo M in nAd, aAOx3 Eyes: No Scleral Icterus, PERRLA Ears/Nose/Mouth/Throat: NL Teeth, Lips, Gums, Mucous Membranes Moist Neck: NL Appearance and Movements; NL JVP, Trachea Midline Respiratory: Symmetrical Chest Expansion and Respiratory Effort, Clear to Auscultation Cardiovascular: NL Sounds; No Murmurs; No JVD, RRR Abdominal: - - distended, tympanic, soft, NT, BS+ Lymphatic: No Cervical Adenopathy Extremities: No Edema, No Clubbing, Cyanosis Skin: - - back incisions healing slowly by secondary intent: 2 incisions 4-5 cm each, clean wound edges. Decubs on sacrum and r buttock-stage 3 5 cm in diam each-shallow. Left heel with wet gangrene at 8 cm in diam , necrotic, black , foul smelling Neurological: Alert and Oriented x 3, - - generalized weakness, b/l legs-unable to raise off bed Result Diagrams: 06/28/16 06:26 06/28/16 06:26 Microbiology and Other Data: Microbiology 06/23/16 21:51 Transfusion Reaction Culture - Preliminary Blood Bag Culture Under Incubation Transfusion Reaction Gram Stain - Final 06/23/16 19:05 Stool Occult Blood (ANDRE) - Final Stool Assess/Plan/Problems-Billing Assessment: 85 yo M h/o recent volvulus, nephrectomy with CKD, spinal stimulator s/p removal and wound infection, heel pressure ulcer, and anemia p/w worsening anemia, worsening CKD, and osteomyolitis - Patient Problems (1) Metabolic acidosis Comment: In setting of renal failure, non anion gap metabolic acidosis due to CKD bicarb deficit improved with PO replacement trend appreciate Dr. Acosta's imput Unable to use K citrate -not on formulary (2) Osteomyelitis Comment: c/w cefepime plan on PO as outpatient ID consulted. surgery consulted, no debridement recommended (3) Anemia Comment: Suspect in setting of chronic illness and CKD iron studies c/w chronic dz s/p 2 U PRBC transfusion, now stable stool heme - (4) Wounds, multiple Comment: Back and heels appreciate Wound care consult and Dr. Flores's assistance (5) RUDY (acute kidney injury) Comment: Injury potential in setting of acute infection, volume depletion, antibiotics Mild improvement with crystalloids appreciate Dr. Acosta's consult Not a candidate for angiogram (6) Abdominal distension Comment: appreciate GI consult CT shows contrast all the way to rectum. Pt has BM's daily (7) DVT prophylaxis Comment: HSQ Status and Disposition: Stable for discharge. Will need f/u with nephrology, wound care clinic, and PO abx for osteomyelitis
[2016-06-28] MEDS: Atorvastatin* 10 MG TAB PO SCH (20:05)
[2016-06-28] MEDS: Pramipexole TAB* 0.125 MG PO SCH (20:06)
--- NOTE | 2016-06-29 00:14 | CONS ---
NEPHROLOGY CONSULTATION: DATE OF CONSULT: HISTORY OF PRESENT ILLNESS: Mr. Joy is an 85-year-old gentleman with a history of chronic renal insufficiency who was noted to have an acute deterioration of renal function related to treatment for recent infection. Apparently, he had been having considerable back pain and he was transferred for a dorsal root stimulator which apparently initially worked, but then became ineffective. He had a more permanent dorsal column stimulator placed and that apparently needed to be removed because of infection. He underwent long-term antibiotics and it was during this time that his renal function deteriorated. Also, during this time, he developed an ulcer to his left heel which is going to require prolonged antibiotics for osteomyelitis. He is not having much pain now, but he just received some pain medication. He has been having a great deal of pain to his foot because of this ulcer as well as his low back pain. PAST MEDICAL HISTORY: His previous medical history is significant. He had undergone a nephrectomy for what he thinks was actually a renal infection back in the early 1949s. He has a history of rheumatoid arthritis and history of peripheral vascular disease. MEDICATIONS: At the time of admission included: 1. Oxycodone 15 mg every 4 hours as required. 2. Clonazepam 25 mg at bedtime. 3. Hytrin 5 mg daily. 4. Zocor 10 mg at bedtime. 5. Mirapex 0.25 mg at bedtime. 6. MiraLAX 17 g daily. 7. Tamiflu 30 mg every other day. 8. Nifedipine 30 mg daily. 9. Multivitamins 1 daily. 10. Synthroid 100 mcg daily. 11. Fluconazole 150 mg daily. ALLERGIES: He has an allergy to SULFA MEDICATIONS and PLETAL. FAMILY HISTORY: Significant for his mother had atherosclerotic cardiovascular disease. SOCIAL HISTORY: He is a former smoker, former alcoholic. He lives at the [facility]. REVIEW OF SYSTEMS: Significant in that he has a history of gout. He recently was treated for sigmoid volvulus. He has anemia of chronic renal disease, history of hypertension, history of hyperlipidemia. The balance of his review is negative except for the previous and present medical illnesses. PHYSICAL EXAMINATION: He is an elderly white gentleman who appears to be quite comfortable at the present time. His blood pressure is 144/60 with a pulse of 69. He is afebrile. Respiratory rate is 18. On HEENT, he is anicteric. His extraocular muscles are intact. Mucous membranes are moist. There is no jugular venous distention. His chest is clear. The heart revealed a regular rhythm. I did not hear any murmurs. The abdomen is soft and nontender. There is no organomegaly. Bowel sounds are positive. Bones, joints, extremities revealed 1+ to 2+ edema. Neurologic: He moves all 4 extremities well. He is alert and oriented. DIAGNOSTIC STUDIES/LAB DATA: A review of his laboratory values reveals a white count of 8.6, hemoglobin of 9.3, sodium of 141, potassium 2.9, chloride 113, total CO2 21, BUN 58, creatinine 3.5 and that is down from an admission creatinine of 4.56 and up from his baseline which runs in the mid 2 range. Calcium was 7.9 with an albumin of 1.8. His iron saturation is 10%. IMPRESSION: 1. Acute on chronic renal insufficiency. 2. Hypokalemia. 3. Chronic left heel ulcer. 4. Peripheral vascular disease. 5. Hypertension. It is likely that he had an acute deterioration of his renal function related to his recent infection. There could be a contribution of hypothyroidism. He did have a significantly elevated TSH back in April and he was started on levothyroxine. It is probably long enough after the initiation of therapy that a followup TSH is probably in order. I would replace his potassium with potassium chloride orally. He should continue to have his metabolic acidosis buffered. Otherwise, his renal function is improving progressively. He should obviously avoid x-ray contrast agents and nonsteroidal anti-inflammatory agents. CC: Dr. Dallas * [id number]/[facility] #: [id number] [facility]
[2016-06-29] MEDS: Morphine INJ* 2 MG/ML 1 ML SYRINGE IV PRN ×3 (04:16→12:17)
[2016-06-29] MEDS: Heparin VIAL(*) 5000 UNITS/ML VIAL (FIVE THOUSAND) SUBCUT SCH (05:07)
[2016-06-29] MEDS: Levothyroxine TAB* 100 MCG TAB PO SCH (05:07)
[2016-06-29 07:42] LABS: BUN/Creatinine Ratio 15.7 (8-20); Calcium 7.6 mg/dL (8.6-10.3); EGFR African American 22.8 (>60); EGFR Non-African American 17.7 (>60)
[2016-06-29] MEDS: Multivitamins/Minerals TAB PO SCH (08:08)
[2016-06-29] MEDS: Sodium Bicarbonate (ANTACID)* 650 MG TAB PO SCH (08:09)
[2016-06-29] MEDS: Ondansetron INJ* 2 MG/ML VIAL IV PRN (08:21)
[2016-06-29] MEDS ORDERED: Potassium Chlor TAB* 20 MEQ TAB.ER PO ONE (08:32)
[2016-06-29] MEDS: oxyCODONE TAB* 5 MG TAB PO PRN (09:07)
[2016-06-29] MEDS: Polyethylene Glycol 3350* 17 GM PACKET PO SCH (09:15)
[2016-06-29 11:08] VITALS: BP 130/60
[2016-06-29] MEDS: Collagenase 250 MG/GM OINT* 30 GM TOPICAL SCH (11:18)
--- NOTE | 2016-06-29 14:24 | DS ---
DISCHARGE SUMMARY: DATE OF ADMISSION: 06/23/16 DATE OF DISCHARGE AND TRANSFER TO [facility]: 06/29/16 PRIMARY CARE PHYSICIAN: Dr. Dallas. DISCHARGE DIAGNOSES: 1. Acute renal failure. 2. Left heel osteomyelitis. 3. Abdominal distension which is now chronic. 4. Slowly healing postoperative wounds on patient's back. 5. Indwelling Ortiz catheter for urinary retention. SECONDARY DIAGNOSES: 1. Chronic kidney disease stage 3. 2. Status post nephrectomy in 1952. 3. History of sigmoid volvulus. 4. History of gout. 5. History of chronic normocytic anemia. 6. Hypothyroidism. 7. Hypertension. 8. Hyperlipidemia. 9. Peripheral arterial disease. 10. History of laminectomy. 11. History of placement and removal of spinal stimulator within the past 4 months. 12. Appendectomy. 13. History of lower extremity vascular stents in the past. MEDICATIONS AT DISCHARGE: Include: 1. Acetaminophen 650 mg every 4 hours p.r.n. 2. Santyl ointment 1 application to left heel daily. 3. Doxycycline 100 mg p.o. b.i.d. for 14 days total. 4. Synthroid 100 mcg daily. 5. Multivitamin 1 tablet daily. 6. Procardia XL 30 mg daily. 7. MiraLAX 17 g daily. 8. Mirapex 0.25 mg at bedtime. 9. Zocor 10 mg at bedtime. 10. Sodium bicarbonate 1300 mg 2 times a day. 11. Terazosin 5 mg daily. 12. Klonopin 0.5 mg at bedtime. 13. Roxicodone 10 mg every 4 hours p.r.n. LABORATORY DATA AND STUDIES PERFORMED DURING THE HOSPITAL STAY: On 06/28/16, his white blood cell count of 8.6, hemoglobin of 9.3, hematocrit of 28, platelets 248. On 06/29/16, sodium of 141, potassium 3.0, chloride 112, carbon dioxide 22, BUN 52, creatinine 3.32. Last checked liver function tests on 06/25 showed a total bilirubin of 0.3, ferritin of 351, direct bilirubin of 0.1. AST of 43, ALT of 46, alkaline phosphatase of 260. Microbiology studies were negative, blood cultures obtained at admission. Stool for occult blood was negative on 06/23/16. Please note that the patient was transfused 2 units of packed red blood cells during his hospital stay for worsening of his chronic normocytic anemia. The lowest patient's hemoglobin was noticed to be on 06/21/[address] of abdomen and pelvis obtained on 06/28/16, impression: "Again noted is dilatation of proximal transverse colon. This is similar to previous examination from 06/23/16. There is no small bowel obstruction. Atherosclerosis with abdominal aortic aneurysm. Moderate bilateral pleural effusions with bibasilar atelectasis. 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 Arterial studies of bilateral lower extremities evaluated ankle brachial indexes , impression: "The vessels are not compressible suggestive of arteriosclerosis. There is dampening of the distal waveforms bilaterally. Greater on the left than on the right. Suggestive of moderate to severe peripheral arterial occlusive disease." Left lower extremity MRI performed on 06/24/16, impression: "Contiguous with lateral heel ulcer, there was signal change within superficial aspect of the calcaneal tuberosity, was consistent with osteomyelitis." CONSULTS DURING THE HOSPITAL STAY: 1. Dr. Vaca from Gastroenterology. 2. Dr. Sofía Flores from Wound Care/Surgery. 3. Dr. Arellano from Infectious Diseases. 4. Dr. Acosta, Nephrology. HOSPITALIZATION COURSE: Quintin Joy is an 85-year-old male who had a history of multiple hospital stays beginning from the end of April 2016 when he was admitted to our facility 3 days after his spinal column stimulator was placed by a physician at the [facility]. The patient at that point was unable to walk and had urinary retention. There was a question of most likely an infection around the spinal column stimulator. At this point, the patient was transferred back to [place] to have the stimulator removed. There he stayed for several weeks on IV antibiotics. The stimulator was removed. From there, he was placed to [facility] where he stayed until his hospital stay on 05/14/16 when he was noted to have nonhealing back wounds after the spinal column stimulator was removed. The patient also had continuation of urinary retention and placed in for sigmoid volvulus that was decompressed during his hospital stay. Post decompression, he continued to have abdominal distention and batter depositor recommended for the patient to be on laxatives on a daily basis and to make sure that the patient has at least 1 bowel movement a day. The patient went back to [facility] on 05/18/16 and he continued to at wound care clinic in regards to his chronic wounds on his back. On 06/23/16. He came back to the hospital with complaints of abnormal laboratory data and left heel pain. At that point he had a new necrotic heel lesion. He also was in acute renal failure with creatinine at its maximum of 4.56 on presentation. Please note that the patient's creatinine in the past was in the range of 2.5, 2.6 and that is patient's baseline. It was thought that the patient's acute renal failure is due to dehydration, ongoing infection of the osteomyelitis on the heel and possibility of nephrotoxic medications that the patient could have received in the past. The patient received intravenous hydration and his nephrotoxic medications were stopped. The MRI of the left heel showed possibility of osteomyelitis and patient was placed on cefepime. Dr. Arellano was consulted in patient's case. Dr. Arellano recommended at discharge to place patient on doxycycline at 100 mg every 12 hours for the next 2 weeks. The patient is to follow up with Dr. Arellano in another 1 to 2 weeks in regards to further treatment. Dr. Flores's outpatient consultation from wound care recommended Mepilex dressings to the back wounds and Santyl dressings to the heel. Surgery followed with the patient throughout the hospital stay and noted that despite the necrotic area on the patient's heel, he did not need debriding. Most likely that was due to patient's poor vasculature in the lower extremities and just that we could not perform CT angiogram to assess it further due to his renal failure. The patient is to follow up [facility] on [facility]02 with a scheduled appointment. Another problem that the patient had been facing is continuation of abdominal distention throughout his hospital stay. The patient had actually 2 CAT scans performed during the hospital stay. It was noted that he has dilated colon with suggestion of possibility of a stricture. That was noted on the first CAT scan 06/23/16. Dr. Vaca was consulted in regards to that. The patient continued to have multiple loose stools per day and he had poor but consistent oral intake. It was noted by Dr. Vaca that the patient's clinical course is more consistent with colonic inertia and it was recommended for the patient to continue improving bowel functions. He is to continue to be on MiraLAX on a daily basis. Throughout the hospital course, the patient continued to have abdominal distention despite that he had bowel movements on a daily basis and satisfactory oral intake. At discharge, once again, the patient continues to have abdominal distention but he has no problems with bowel movements, although his appetite continues to be poor. He continues to have a necrotic left heel wound that was just seen by Surgery the day prior to discharge. He also continues to have chronically very slowly healing incisions on his back. He also has Ortiz catheter that was placed for urinary retention in April 2016 and continued. The patient wished to be transferred to [facility] and not to go back to [facility], which is going to happen today. In addition, the patient is recommended to follow up with his primary care provider at [facility] within the next week. Dr. Arellano is to see within the next couple of weeks or so. The patient is also recommended to follow with Dr. Acosta. We asked the [facility] to check CBCs and complete metabolic panels on a weekly basis when patient is on oral antibiotics and to send those results to Dr. Arellano and Dr. Acosta. He is also scheduled with wound care on 07/02/16. PHYSICAL EXAM AT THE TIME OF DISCHARGE: Blood pressure of 130/60, heart rate 78 and regular, respiratory rate 16. Oxygen saturation 96% on room air, temperature 98.3. General: The patient is a very pleasant 85-year male who is in no acute distress. Alert and awake, oriented x3. HEENT: Head atraumatic, normocephalic. Eyes: Pupils equal, reactive to light and accommodation. Oropharynx clear. Mucosa moist. Neck: Supple. No JVD, no bruits bilaterally. Cardiovascular: Regular rate and rhythm. No murmur. Respiratory: Faint crackles at bilateral bases, otherwise clear. Abdomen: Distended, soft, protuberant, nontender. Bowel sounds present in all 4 quadrants. Extremities: There is no edema. Pulses poorly palpable but present bilaterally. There is no clubbing or cyanosis. On evaluation of the skin, the patient has 2 incision sites on the patient's back, each of them are approximately 5 cm in diameter due to slowly healing by secondary intention. There is no discharge at the incision site and there is no associated cellulitis noted. The patient's left heel is necrotic. The area is approximately 8 cm in diameter. It is black, foul smelling that had been unchanged for the past couple of days. On neuro evaluation, the patient has generalized weakness and he has problems with raising his legs off bed bilaterally. That had been chronic and unchanged. Psychiatric Evaluation: The patient is alert and oriented x3 with no evidence of anxiety or depression. Please note that this is a very short summary of the patient's long and complicated hospitalization. Please refer to further medical records for details. Approximately 55 minutes were spent on the patient's discharge. CC: [facility]; Sofía Flores MD; Dr. Vaca; Dr. Arellano; Dr. Acosta; Dr. Dallas* [id number] #: [id number] MTDD
== END 2016-06-29 14:10 | DRG 638 ==
LOC: ED 15:32 → MED 18:17
PROVIDERS: ADMIT Internal Medicine; ATTEND Internal Medicine
PROC: 30233N1 Transfusion of Nonautologous Red Blood Cells into Peripheral Vein, Percutaneous Approach (ICD-10-PCS; principal; 2016-06-23)
PROC: 3E0234Z Introduction of Serum, Toxoid and Vaccine into Muscle, Percutaneous Approach (ICD-10-PCS; 2016-06-24)
DX: E11.69 Type 2 diabetes mellitus with other specified complication (principal); J90 Pleural effusion, not elsewhere classified; M86.172 Other acute osteomyelitis, left ankle and foot; N17.9 Acute kidney failure, unspecified; L89.312 Pressure ulcer of right buttock, stage 2; L89.152 Pressure ulcer of sacral region, stage 2; E87.2 Acidosis; L89.322 Pressure ulcer of left buttock, stage 2; E11.52 Type 2 diabetes mellitus with diabetic peripheral angiopathy with gangrene; E11.621 Type 2 diabetes mellitus with foot ulcer; L97.319 Non-pressure chronic ulcer of right ankle with unspecified severity; L97.429 Non-pressure chronic ulcer of left heel and midfoot with unspecified severity; E11.22 Type 2 diabetes mellitus with diabetic chronic kidney disease; I12.9 Hypertensive chronic kidney disease with stage 1 through stage 4 chronic kidney disease, or unspecified chronic kidney disease; D63.1 Anemia in chronic kidney disease; M10.9 Gout, unspecified; E03.9 Hypothyroidism, unspecified; E78.5 Hyperlipidemia, unspecified; N18.3 Chronic kidney disease, stage 3 (moderate); I25.10 Atherosclerotic heart disease of native coronary artery without angina pectoris; M19.90 Unspecified osteoarthritis, unspecified site; M06.9 Rheumatoid arthritis, unspecified; E87.6 Hypokalemia; I71.4 Abdominal aortic aneurysm, without rupture; L89.620 Pressure ulcer of left heel, unstageable; N40.0 Benign prostatic hyperplasia without lower urinary tract symptoms; I77.9 Disorder of arteries and arterioles, unspecified; R33.9 Retention of urine, unspecified; R14.0 Abdominal distension (gaseous); D64.89 Other specified anemias; E86.0 Dehydration; T47.1X5A Adverse effect of other antacids and anti-gastric-secretion drugs, initial encounter; Z98.42 Cataract extraction status, left eye; Z98.41 Cataract extraction status, right eye; Z83.3 Family history of diabetes mellitus; Z23 Encounter for immunization; Z90.5 Acquired absence of kidney; Z91.048 Other nonmedicinal substance allergy status; Z88.2 Allergy status to sulfonamides; Z82.49 Family history of ischemic heart disease and other diseases of the circulatory system; Z80.9 Family history of malignant neoplasm, unspecified; Z87.891 Personal history of nicotine dependence
CPT/HCPCS: 36415; 74176; 80048; 80053; 80076; 80202; 81003; 81015; 82272; 82570; 82607; 82728; 82746; 83010; 83540; 83550; 83615; 84134; 84300; 84466; 85025; 85045; 85610; 85652; 85730; 86078; 86140; 86850; 86900; 86901; 86922; 87040; 87086; 90732; 93922; 94760; A9270-GY; J0692; J0780; J1644; J2270; J2405; J3370; P9040